=== PATIENT | female | born 1935 | race Caucasian/White ===

== ENCOUNTER → 2016-08-09 | Outpatient (REF) | payer MEDICARE ==
[~2016-08-09] MED LIST: ASPI32ECTA PO; D 50CAP PO; DEXI60CA PO; FOLI800T PO; LEVO50TA5 PO; PRED10PA PO; PRED10TA PO; SUCR1TA PO; VITA100072 PO; astelin
== END ==
LOC: M LAB REF 16:46
PROVIDERS: ATTEND Internal Medicine
DX: M35.3 Polymyalgia rheumatica (principal)

== ENCOUNTER 2016-12-20 12:31 | Emergency (ER) | payer MEDICARE ==
[~2016-12-20] VITALS: Ht 162.6 cm; Wt 81.8 kg
[~2016-12-20 12:31] MED LIST changes: +ASPI325T24 PO; -ASPI32ECTA PO; -DEXI60CA PO; +DEXI60CA2 PO
[2016-12-20] MEDS ORDERED: CITA20TA4 PO (12:42)
[2016-12-20] MEDS ORDERED: METF500T13 PO (12:42)
[2016-12-20] MEDS ORDERED: ASPI81TA85 PO (12:42)
[2016-12-20] MEDS ORDERED: PROT1TAB2 PO (12:42)
[2016-12-20] MEDS ORDERED: GABA-283 PO (12:42)
[2016-12-20] MEDS ORDERED: ADACEL/BOOSTRIX VACCINE (DIPHTH/PERTUSS/ACELL/TETANUS)0.5ML SYR (90715) IM ONE (13:30)
--- NOTE | 2016-12-20 14:16 | REP ---
CT Head without contrast HISTORY: Trauma COMPARISON: 05/21/2016 Areas of decreased attenuation are present in the periventricular and subcortical white matter. This represents small-vessel ischemic disease. There is no intraparenchymal hemorrhage, acute infarct, mass or midline shift. The ventricular system and cortical sulci are dilated consistent with mild volume loss. There is no extra cerebral collection. There is no fracture. The visualized sinuses are clear. IMPRESSION: 1. Small vessel ischemic disease. 2. Mild volume loss. Signed by Drew Faith MD 12/20/2016 02:08 P
--- NOTE | 2016-12-20 14:27 | REP ---
CT CERVICAL SPINE WITHOUT CONTRAST: HISTORY: Trauma. COMPARISON: 05/21/2016 There is no acute fracture. Disc bulges are present at the C2-3 through C5-6 levels. There is minimal narrowing of the spinal canal. Uncinate process and/or facet hypertrophy are present at the C2-3 through C6-7 levels. These findings produce minimal to mild narrowing of the neural foramina. The C4-5 and C5-6 intervertebral discs are decreased in height consistent with disc degeneration. IMPRESSION: 1. There is no acute fracture. 2. There is cervical spondylosis at the C2-3 through C6-7 levels. Signed by Drew Faith MD 12/20/2016 02:30 P
[2016-12-20 15:00] VITALS: BP 131/68
== END 2016-12-20 15:03 | disposition home or self-care (01) ==
LOC: EDBD 12:31 → EDSEX 12:31 → M ED 12:31
DX: S01.91XA Laceration without foreign body of unspecified part of head, initial encounter (principal); S09.90XA Unspecified injury of head, initial encounter; W19.XXXA Unspecified fall, initial encounter; Y92.099 Unspecified place in other non-institutional residence as the place of occurrence of the external cause; Y93.9 Activity, unspecified; Y99.9 Unspecified external cause status; E03.9 Hypothyroidism, unspecified; F41.9 Anxiety disorder, unspecified; K21.9 Gastro-esophageal reflux disease without esophagitis; M47.812 Spondylosis without myelopathy or radiculopathy, cervical region

== ENCOUNTER → 2017-01-02 | Outpatient (CLI) | payer MEDICARE ==
[~2017-01-02] MED LIST changes: +ASPI81TA85 PO; +CITA20TA4 PO; +GABA-283 PO; +METF500T13 PO; +PROT1TAB2 PO
--- NOTE | 2017-01-02 14:39 | REP ---
REASON FOR EXAM: Pain after fall. COMPARISON: None. There is partial syndesmophyte formation seen bilaterally at every level, but particularly at the L2-3 level. The pedicles are intact bilaterally. There is no evidence of spondylosis or spondylolisthesis. There is mild to moderate disc space narrowing at every level. Vertebral body height and alignment is within normal limits. Degenerative facet joint changes are suspected at every level bilaterally, but particularly L4-5 and L5-S1. IMPRESSION: Chronic changes. Signed by Tony Muhammad DO 01/03/2017 11:28 A
== END ==
LOC: M ADAMS 11:49
PROVIDERS: ATTEND Physician Assistant
DX: M54.5 Low back pain (principal)

== ENCOUNTER 2017-06-25 22:01 | Emergency (ER) | payer MEDICARE ==
[2017-06-26] MEDS: CYCLOBENZAPRINE 10 MG TAB PO
[2017-06-26] MEDS: MORPHINE 2 MG/ML 1ML SYRINGE IV
[2017-06-26] MEDS: NS 500 ML IV
[2017-06-26 00:31] LABS: BASO % 0.3 % (0.0-1.0); EOS # 0.1 10^3/uL (0.0-0.50); EOS % 0.7 % (0.0-3.0); HEMATOCRIT 37.1 % (36.0-47.0); HEMOGLOBIN 11.4 g/dl (12.0-16.0); IMMATURE GRANULOCYTE # 0.1 10^3/uL (0-0); IMMATURE GRANULOCYTE % 0.5 % (0-0); LYMPH # 2.5 10^3/uL (1.5-4.5); LYMPH % 19.4 % (24.0-44.0); MEAN CORPUSCULAR HEMOGLOBIN 28.8 pg (27.0-33.0); MEAN CORPUSCULAR HGB CONC 30.7 g/dl (32.0-36.5); MEAN CORPUSCULAR VOLUME 93.7 fl (80.0-96.0); MONO # 1.2 10^3/uL (0.0-0.8); MONO % 9.3 % (0.0-5.0); NEUTROPHILS % 69.8 % (36.0-66.0); PLATELET COUNT, AUTOMATED 296 10^3/uL (150-450); RED BLOOD COUNT 3.96 10^6/uL (4.00-5.40); RED CELL DISTRIBUTION WIDTH 13.9 % (11.5-14.5); WHITE BLOOD COUNT 12.9 10^3/uL (4.0-10.0)
[2017-06-26 00:50] LABS: ERYTHROCYTE SEDIMENTATION RATE 35 mm/hr (0-30)
[2017-06-26 00:53] LABS: CONTROL LINE MONO INT CTR LINE PRESENT; MONO SCRN NEGATIVE (NEGATIVE)
[2017-06-26 00:58] LABS: ANION GAP 7 MEQ/L (8-16); BLOOD UREA NITROGEN 19 MG/DL (7-18); CALCIUM LEVEL 9.1 MG/DL (8.8-10.2); CARBON DIOXIDE LEVEL 31 MEQ/L (21-32); CHLORIDE LEVEL 106 MEQ/L (98-107); CREATININE FOR GFR 0.77 MG/DL (0.55-1.02); GLOMERULAR FILTRATION RATE > 60.0 (>32); GLUCOSE, FASTING 107 MG/DL (83-110); POTASSIUM SERUM 4.4 MEQ/L (3.5-5.1); SODIUM LEVEL 144 MEQ/L (136-145)
[2017-06-26 01:00] LABS: LACTIC ACID SEPSIS PROTOCOL 1.6 MMOL/L (0.4-2.0)
[2017-06-26] MEDS: KETOROLAC 30 MG/ML VIAL (J1885) IV (01:15)
[2017-06-26] MEDS: AUGMENTIN 875 MG TAB PO (04:00)
== END 2017-06-26 04:16 | disposition home or self-care (01) ==
LOC: M ED 22:01
DX: I88.9 Nonspecific lymphadenitis, unspecified (principal); E03.9 Hypothyroidism, unspecified; F41.9 Anxiety disorder, unspecified; L21.9 Seborrheic dermatitis, unspecified; E11.40 Type 2 diabetes mellitus with diabetic neuropathy, unspecified; Z79.899 Other long term (current) drug therapy; Z79.82 Long term (current) use of aspirin; Z79.84 Long term (current) use of oral hypoglycemic drugs
CPT/HCPCS: J1885

== ENCOUNTER → 2017-07-05 | Outpatient (CLI) | payer MEDICARE | LOC: M RAD 13:19 | DX: J32.0 Chronic maxillary sinusitis (principal) | CPT/HCPCS: 70486 ==

== ENCOUNTER → 2017-08-30 | Outpatient (CLI) | payer MEDICARE | LOC: M ADAMS 13:20 | DX: M54.6 Pain in thoracic spine (principal) | CPT/HCPCS: 72072 ==

== ENCOUNTER → 2017-12-17 | Outpatient (REF) | payer MEDICARE | LOC: M LAB REF 09:37 | DX: N39.0 Urinary tract infection, site not specified (principal) | CPT/HCPCS: 87186 ==

== ENCOUNTER → 2018-04-17 | Outpatient (REF) | payer MEDICARE ==
[2018-04-17 18:35] LABS: C REACTIVE PROTEIN QUANTITATIV < 0.30 MG/DL (0.00-0.30)
== END ==
LOC: M LAB REF 17:17
DX: M35.3 Polymyalgia rheumatica (principal)
CPT/HCPCS: 86140

== ENCOUNTER → 2018-06-14 | Outpatient (CLI) | payer MEDICARE ==
[~2018-06-14] MED LIST changes: -ASPI325T24 PO; +ASPI325T25 PO; +AUGM500T34 PO; -GABA-283 PO; +GABA-845 PO
[2018-06-14 19:54] LABS: BASO # 0.1 10^3/uL (0.0-0.2); BASO % 0.4 % (0.0-1.0); EOS % 0.2 % (0.0-3.0); HEMATOCRIT 39.1 % (36.0-47.0); HEMOGLOBIN 11.6 g/dl (12.0-15.5); LYMPH # 2.3 10^3/uL (1.5-4.5); LYMPH % 20.2 % (24.0-44.0); MEAN CORPUSCULAR HEMOGLOBIN 27.2 pg (27.0-33.0); MEAN CORPUSCULAR HGB CONC 29.7 g/dl (32.0-36.5); MEAN CORPUSCULAR VOLUME 91.6 fl (80.0-96.0); MONO # 0.9 10^3/uL (0.0-0.8); NEUTROPHILS # 8.2 10^3/uL (1.8-7.7); NEUTROPHILS % 70.9 % (36.0-66.0); PLATELET COUNT, AUTOMATED 354 10^3/uL (150-450); RED BLOOD COUNT 4.27 10^6/uL (4.00-5.40); WHITE BLOOD COUNT 11.6 10^3/uL (4.0-10.0)
[2018-06-14 20:09] LABS: ALBUMIN 3.3 GM/DL (3.2-5.2); ALT/SGPT 23 U/L (12-78); BILIRUBIN,TOTAL 0.4 MG/DL (0.2-1.0); BLOOD UREA NITROGEN 13 MG/DL (7-18); CALCIUM LEVEL 9.5 MG/DL (8.8-10.2); CARBON DIOXIDE LEVEL 30 MEQ/L (21-32); CHLORIDE LEVEL 105 MEQ/L (98-107); CREATININE FOR GFR 0.94 MG/DL (0.55-1.30); GLOMERULAR FILTRATION RATE > 60.0 (>32); GLUCOSE, FASTING 105 MG/DL (70-100); POTASSIUM SERUM 5.3 MEQ/L (3.5-5.1); SODIUM LEVEL 142 MEQ/L (136-145); TOTAL PROTEIN 6.4 GM/DL (6.4-8.2)
== END ==
LOC: M LABDRWAD 18:26
PROVIDERS: ATTEND Physician Assistant
DX: D50.9 Iron deficiency anemia, unspecified (principal); E80.6 Other disorders of bilirubin metabolism; E55.9 Vitamin D deficiency, unspecified; H81.399 Other peripheral vertigo, unspecified ear

== ENCOUNTER → 2018-10-24 | Outpatient (REF) | payer MEDICARE ==
[~2018-10-24] MED LIST changes: +ASPI-255 PO; -ASPI325T25 PO; -CITA20TA4 PO; +CITA20TA6 PO; +PRED-351 PO; -PRED10TA PO; +VITA100018 PO; -VITA100072 PO
== END ==
LOC: M LAB REF 12:03
PROVIDERS: ATTEND Physician Assistant Medical
DX: N39.0 Urinary tract infection, site not specified (principal)

== ENCOUNTER → 2018-12-13 | Outpatient (REF) | payer MEDICARE | LOC: M LAB REF 16:54 | PROVIDERS: ATTEND Internal Medicine | DX: R31.9 Hematuria, unspecified (principal) ==

== ENCOUNTER 2019-11-12 14:36 | Inpatient (IN) | payer MEDICARE ==
[~2019-11-12] VITALS: Ht 162.6 cm; Wt 81.8 kg
[2019-11-12] MEDS ORDERED: LOSA25TA14 (15:02)
[2019-11-12] MEDS ORDERED: NAPR-837 PO (15:02)
[2019-11-12] MEDS ORDERED: ONDANSETRON 4MG/2ML VIAL IV ONE (15:30)
[2019-11-12] MEDS ORDERED: MORPHINE 4 MG/ML 1ML VIAL/SYRINGE (J2270) IV ONE (15:30)
[2019-11-12] MEDS: NS 1,000 ML IV SCH ×2 (15:47→23:51)
[2019-11-12 16:04] LABS: BASO % 0.2 % (0.0-1.0); HEMATOCRIT 36.4 % (36.0-47.0); HEMOGLOBIN 10.6 g/dl (12.0-15.5); LYMPH # 0.9 10^3/uL (1.5-5.0); MEAN CORPUSCULAR HEMOGLOBIN 25.5 pg (27.0-33.0); MEAN CORPUSCULAR HGB CONC 29.1 g/dl (32.0-36.5); MEAN CORPUSCULAR VOLUME 87.7 fl (80.0-96.0); MONO # 0.8 10^3/uL (0.0-0.8); MONO % 4.6 % (0.0-5.0); NEUTROPHILS # 15.5 10^3/uL (1.5-8.5); NEUTROPHILS % 89.2 % (36.0-66.0); PLATELET COUNT, AUTOMATED 267 10^3/uL (150-450); RED BLOOD COUNT 4.15 10^6/uL (4.00-5.40); WHITE BLOOD COUNT 17.4 10^3/uL (4.0-10.0)
[2019-11-12 16:18] LABS: INR 1.07; PROTHROMBIN TIME 13.6 SECONDS (11.8-14.0)
--- NOTE | 2019-11-12 16:26 | REP ---
PELVIS AND RIGHT HIP: AP view of the pelvis and AP and cross-table lateral views of the right hip are performed. There is a fracture of the right femoral neck with foreshortening and varus angulation. No dislocation. No other acute fracture or dislocation is seen. There are mild degenerative changes of the hip joints and lower lumbar spine. IMPRESSION: Right femoral neck fracture. Electronically Signed by Arnold Roldan MD 11/14/2019 12:53 A
--- NOTE | 2019-11-12 16:27 | REP ---
CHEST, SINGLE VIEW: Single view of the chest is performed. There is no acute infiltrate with mild bibasilar fibroatelectatic change. There is cardiomegaly. There is a large hiatal hernia. IMPRESSION: No acute infiltrate. Electronically Signed by Arnold Roldan MD 11/14/2019 12:54 A
--- NOTE | 2019-11-12 16:28 | REP ---
RIGHT FEMUR: AP and lateral views of the right femur performed. There is a right femoral neck fracture with foreshortening and varus deformity. The remaining femur is intact with no other evidence of acute fracture or dislocation. IMPRESSION: Right femoral neck fracture. Electronically Signed by Arnold Roldan MD 11/14/2019 12:54 A
[2019-11-12 16:31] LABS: BLOOD UREA NITROGEN 16 MG/DL (7-18); CALCIUM LEVEL 9.2 MG/DL (8.8-10.2); CARBON DIOXIDE LEVEL 27 MEQ/L (21-32); CHLORIDE LEVEL 105 MEQ/L (98-107); CK-MB VALUE MASS 1.5 NG/ML (<3.6); CPK CREATINE PHOSPHOKINASE 103 U/L (26-192); CREATININE FOR GFR 0.93 MG/DL (0.55-1.30); GLOMERULAR FILTRATION RATE > 60.0 (>32); GLUCOSE, FASTING 115 MG/DL (70-100); MB/CK RELATIVE INDEX 1.46 (< OR =4); POTASSIUM SERUM 4.4 MEQ/L (3.5-5.1); SODIUM LEVEL 139 MEQ/L (136-145)
[2019-11-12 16:44] LABS: NT-PRO BNP 442 PG/ML (<450)
[2019-11-12] MEDS ORDERED: DEXTROSE 50% 50 ML SYRINGE IV PRN (17:00)
[2019-11-12] MEDS ORDERED: GLUCAGON INJ 1MG VIAL SC PRN (17:00)
[2019-11-12] MEDS ORDERED: GLUCOSE 4GM CHEW TABLET PO PRN (17:00)
[2019-11-12] MEDS ORDERED: MORPHINE 2 MG/ML 1ML VIAL (J2270) IV PRN (17:00)
--- NOTE | 2019-11-12 17:10 | IPNPDOC ---
Text Note Date of Service The patient was seen on 11/12/19. NOTE TIME OF SERVICE 505 PM is an 84 yr old w a PMH of NIDDM, Hypothyroidism, Severe Sleep apnea, Obesity and OA who tripped and fell resulting in a right hip fx. PE: appears to be in pain / ROM at right leg limited by pain 1 R hip fx -admit to med/surg / NPO after midnight w IVF for surgery by / morphine for pain 2 Perioperative eval RCRI Score = 0 but bc she is 84 yrs of age, we will f/u BNP if it is wnl she will not need additional testing prior to proceeding with surgery / hold ASA / per CCS guidelines hold ARBs 24H prior to surgery to reduce perioperative risk of hypotension & resume on day #2 after surgery / she is chronically on prednisone but her dose is less than 10mg therefore there is no need for stress dose steroids 3 Osteoporosis -possibly steroid induced -will need to f/u w PCP for DEXA and to select antiresorptive therapy 4 Sleep apnea -bipap 05/12 based on sleep study done in 2010 5 Obesity w BMI of 31 complicates care rest per 's H&P VS,Fishbone, I+O VS, Fishbone, I+O Laboratory Tests 11/12/19 15:46 Vital Signs Date Time Temp Pulse Resp B/P (MAP) Pulse Ox O2 Delivery O2 Flow Rate FiO2 11/12/19 15:49 19 100 Room Air 11/12/19 14:59 180/80 (113) 11/12/19 14:50 97.5 94 KAMILLA HALL MD Nov 12, 2019 17:10
--- NOTE | 2019-11-12 17:16 | HPEPDOC ---
[facility] Medical History & Physical Date of Admission Nov 12, 2019 Date of Service: Nov 12, 2019 Primary Care Physician: ZAINA ZEPEDA DO Attending Physician: KAMILLA HALL MD History and Physical CHIEF COMPLAINT: Right hip pain HISTORY OF PRESENT ILLNESS: Patient is an 84 year old female with a past medical history significant for hypertension, diabetes mellitus type 2, and GERD who presented to the [facility] ER with complaint of right hip pain after a fall. Patient stated she was bringing her groceries into the house and was in her living room when she tripped and fell landing on her right side. She stated that she was unable to get up at the time and called her children who live close by. She states that it was about an hour before she was able to get help. She denied any loss of consciousness when she fell. She states that she has fallen before however has not fallen at all in the past year. On presentation to the ER the patient was found to be in hypertensive urgency l ikely secondary to her pain but otherwise vitally stable. She received a hip/pelvis x-ray in the ER which demonstrated a right femoral neck fracture. Hospitalist service was consulted and the patient was admitted for further evaluation and management PAST MEDICAL HISTORY: 1. Hypertension 2. Diabetes Mellitus Type 2 3. Hypothyroidism 4. GERD PAST SURGICAL HISTORY: 1. Cholecystectomy 2. Bilateral Cataract surgery 3. Bilateral Tubal Ligations SOCIAL HISTORY: Patient lives at home alone. She is independent with her ADLs. She is a never smoker. She does not drink alcohol. She denies any history of IV or illicit drug use FAMILY HISTORY: Positive for "heart problems in father and stroke in her mother. She has 4 children all of whom are alive and well ALLERGIES: Please see below. REVIEW OF SYSTEMS: CONSTITUTIONAL: Denies fevers, chills, nightsweats. Denies unintentional weight loss HEENT: Denies cough. Denies dysphagia CARDIOVASCULAR: Denies chest pain. Denies palpitations. Denies feelings of the heart racing RESPIRATORY: Denies shortness of breath. Denies cough. Denies wheeze GASTROINTESTINAL: Denies abdominal pain. Denies diarrhea, constipation. Denies nausea or vomiting GENITOURINARY: Denies dysuria. Denies increased frequency. SKIN: Denies any rashes or lesions MUSCULOSKELETAL: Admits to right sided hip pain and difficulty and weakness in right leg. NEUROLOGICAL: Denies changes in speech. Denies muscle weakness PSYCHIATRIC: Denies depression or anxiety ENDOCRINE: Denies heat intolerance or cold intolerance HEMATOLOGIC/LYMPHATIC: Denies easy bruising or bleeding. Denies history of DVT or PE HOME MEDICATIONS: Please see below. PHYSICAL EXAMINATION: VITAL SIGNS: Temperature 97.5, pulse 94, respiratory rate 18, blood pressure 180/80, pulse oximetry 100% on room air. GENERAL APPEARANCE: Awake, alert, and oriented. Does not appear in any acute distress. Lying in stretcher. Appears slightly uncomfortable HEENT: Atraumatic, normocephalic. eyes are nonicteric. Trachea is midline/ CARDIOVASCULAR: Normal S1. S2. Regular rate and rhythm. 2/6 systolic ejection murmur. No clicks or rubs LUNGS: Clear vesicular breath sounds bilaterally. Good respiratory effort. No wheezes, rhonchi or rales ABDOMEN: Soft, nondistended. nontender. Normoactive bowel sounds throughout. EXTREMITIES: External rotation of the right lower extremity. Tenderness over the right hip. No edema. Full and equal pulses in bilateral upper and lower extremities NEUROLOGICAL: No focal neurological deficits PSYCHIATRIC: Mood and affect appear appropriate LABORATORY DATA: See below. IMAGING: PELVIS AND RIGHT HIP: AP view of the pelvis and AP and cross-table lateral views of the right hip are performed. There is a fracture of the right femoral neck with foreshortening and varus angulation. No dislocation. No other acute fracture or dislocation is seen. There are mild degenerative changes of the hip joints and lower lumbar spine. IMPRESSION: Right femoral neck fracture. RIGHT FEMUR: AP and lateral views of the right femur performed. There is a right femoral neck fracture with foreshortening and varus deformity. The remaining femur is intact with no other evidence of acute fracture or dislocation. IMPRESSION: Right femoral neck fracture. Unreviewed DD: Arnold Roldan MD, MD 11/12/19 1539 DT: KATHY 11/12/19 1628 CHEST, SINGLE VIEW: Single view of the chest is performed. There is no acute infiltrate with mild bibasilar fibroatelectatic change. There is cardiomegaly. There is a large hiatal hernia. IMPRESSION: No acute infiltrate. Unreviewed DD: Arnold Roldan MD, MD 11/12/19 1540 DT: MARK 11/12/19 1626 DS: MICROBIOLOGY: Please see below. ASSESSMENT: Patient is an 84 year old female who presented to the [facility] ER with right hip pain after a mechanical fall at home resulting in a right femoral neck fracture. Patient is admitted for surgery tomorrow . PLAN: 1. Right Femoral neck fracture 2/2 mechanical fall -Patient sustained right femoral neck fracture from a fall at home. Fall was mechanical, -Patient to go to OR tomorrow. -NPO after midnight -Morphine for pain management -Perioperative evaluation with EKG demonstrating LVH likely secondary to hypertensive heart disease. -Will hold metformin, Naproxen, aspirin, Losartan -Perioperative Mortality Prediction Score of 12 points indicating ~2.4% risk of perioperative mortality -Revised Cardiac Risk Index Class I Risk. 3.9% 30 day risk of , NV, or cardiac arrest -History of DIAN. DIAN protocol after surgery -Patient has 6-8 metabolic equivalents. High functional status prior to right femur fracture 2. Leukocytosis -Likely reactive to patients fall and acute fracture. Afebrile. 3. Severe Asymptomatic Hypertension -Presenting BP of 213/96. Likely secondary to pain. Patients BP has come down with pain management 4. DIAN -Patient uses CPAP at home. DIAN protocol post-op 5. DMII -hold metformin -ACHS coverage with sliding scale -q6h coverage when NPO after midnight 6. Hypothyroidism -Continue Synthroid 7. GERD -Continue home medications 8. DVT Prophylaxis -TEDS and Sequentials -Pharmacologic prophylaxis after surgery Vital Signs Vital Signs Date Time Temp Pulse Resp B/P (MAP) Pulse Ox O2 Delivery O2 Flow Rate FiO2 11/12/19 15:49 19 100 Room Air 11/12/19 14:59 180/80 (113) 11/12/19 14:50 97.5 94 Laboratory Data Labs 24H Laboratory Tests 2 11/12/19 15:46: Immature Granulocyte % (Auto) 1.0, Neutrophils (%) (Auto) 89.2H, Lymphocytes (%) (Auto) 5.0L, Monocytes (%) (Auto) 4.6, Eosinophils (%) (Auto) 0.0, Basophils (%) (Auto) 0.2, Neutrophils # (Auto) 15.5H, Lymphocytes # (Auto) 0.9L, Monocytes # (Auto) 0.8, Eosinophils # (Auto) 0.0, Basophils # (Auto) 0.0, Nucleated Red Blood Cells % (auto) 0.0, Prothrombin Time 13.6, Prothromb Time International Ratio 1.07, Anion Gap 7L, Glomerular Filtration Rate > 60.0, Calcium Level 9.2, Total Creatine Kinase 103, Creatine Kinase MB 1.5, Creatine Kinase MB Relative Index 1.46, RI-Doi-U-Type Natriuretic Peptide 442 CBC/BMP Laboratory Tests 11/12/19 15:46 Home Medications Scheduled Aspirin (Aspirin EC) 81 Mg Tablet.dr, 81 MG PO DAILY Cetirizine HCl (Cetirizine HCl) 10 Mg Tablet, 10 MG PO DAILY Cholecalciferol (Vitamin D3) (Vitamin D3) 1,000 Unit Tablet, 1,000 UNITS PO DAILY Cyanocobalamin (Vitamin B-12) (Vitamin B-12) 1,000 Mcg Tablet, 1,000 MCG PO DAILY Folic Acid (Folic Acid) 0.8 Mg Capsule, 800 MCG PO QPM Gabapentin (Gabapentin) 100 Mg Capsule, 200 MG PO QHS Levothyroxine Sodium (Levoxyl) 50 Mcg Tablet, 50 MCG PO DAILY Losartan Potassium (Losartan Potassium) 50 Mg Tablet, 50 MG PO DAILY Metformin HCl (Metformin HCl) 500 Mg Tablet, 500 MG PO DAILY Pantoprazole Sodium (Pantoprazole Sodium) 40 Mg Tablet.dr, 40 MG PO DAILY Prednisone (Prednisone) 2.5 Mg Tablet, 2.5 MG PO DAILY 7.5MG TOTAL DAILY Prednisone (Prednisone) 5 Mg Tablet, 5 MG PO DAILY 7.5MG TOTAL DAILY Scheduled PRN Montelukast Sodium (Montelukast Sodium) 10 Mg Tablet, 10 MG PO QHS PRN for ALLERGIES Naproxen (Naproxen) 500 Mg Tablet, 500 MG PO BID PRN for PAIN Allergies Coded Allergies: No Known Allergies (Unverified , 12/20/16) A-FIB/CHADSVASC A-FIB History Current/History of A-Fib/PAF?: No GME ATTESTATION GME ATTESTATION My faculty preceptor for this patient encounter was physically present during the encounter and was fully available. All aspects of the patient interview, examination, medical decision making process, and medical care plan development were reviewed and approved by the faculty preceptor. The faculty preceptor is aware and concurs with the plan as stated in the body of this note and will attest to such by his/her cosignature. ATTENDING NOTE I reviewed the note, please see my addendum from 11/12/2019 LESA MÉNDEZ DO Nov 12, 2019 17:16 KAMILLA HALL MD Nov 12, 2019 20:06
[2019-11-12] MEDS ORDERED: LOSA50TA88 PO (17:30)
[2019-11-12] MEDS: HumaLOG INSULIN (NovoLOG) PER UNIT SC SCH ×2 (17:30→21:00)
[2019-11-12] MEDS ORDERED: ASPI-161 PO (17:30)
[2019-11-12] MEDS ORDERED: VITAD1000T PO (17:30)
[2019-11-12] MEDS ORDERED: CYAN100050 PO (17:30)
[2019-11-12] MEDS ORDERED: GABA-1171 PO (17:30)
[2019-11-12] MEDS ORDERED: LEVO50TA45 PO (17:30)
[2019-11-12] MEDS ORDERED: FOLI800C PO (17:30)
[2019-11-12] MEDS ORDERED: NAPR-885 PO (17:31)
[2019-11-12] MEDS ORDERED: PRED25TA PO (17:31)
[2019-11-12] MEDS ORDERED: PANT-23 PO (17:31)
[2019-11-12] MEDS ORDERED: MONT10TA4 PO (17:31)
[2019-11-12] MEDS ORDERED: METF-839 PO (17:31)
[2019-11-12] MEDS ORDERED: ALL10TAB29 PO (17:31)
[2019-11-12] MEDS ORDERED: PRED5TA PO (17:31)
[2019-11-12] MEDS: ONDANSETRON 4MG/2ML VIAL IV PRN (17:37)
[2019-11-12 18:37] VITALS: BP 132/84
[2019-11-12] MEDS ORDERED: METOCLOPRAMIDE INJ 10MG/2ML VIAL (J2765 PER 1) IV PRN (19:30)
[2019-11-12] MEDS ORDERED: MONTELUKAST 10 MG TAB PO PRN (20:15)
--- NOTE | 2019-11-12 20:19 | ECGEPIP ---
[facility] - ED Test Date: 2019-11-12 Pat Name: AMOL GERBER Department: Room: - Gender: Female Occup Therapist: : [id number] Requested By: SANDRA CHANDRA Order Number: [id number] Reading MD: Hazel Oliveros Measurements Intervals [place] Rate: 94 P: 67 MN: 154 QRS: -3 QRSD: 74 T: 140 QT: 352 QTc: 442 Interpretive Statements SINUS RHYTHM LEFT VENTRICULAR HYPERTROPHY AND ST-T CHANGE INCREASED RATE 07/12/15 Electronically Signed on 11-12-2019 20:19:13 EDT by Hazel Oliveros
[2019-11-12 20:39] LABS: HEMOGLOBIN A1c 6.3 %
[2019-11-12] MEDS ORDERED: traMADol 50 MG TAB PO PRN (21:30)
[2019-11-12] MEDS: GABAPENTIN 100 MG CAP PO SCH (21:37)
[2019-11-12] MEDS: ACETAMINOPHEN 500 MG TAB PO SCH (21:38)
[2019-11-12] MEDS: traMADol 50 MG TAB PO PRN (21:38)
[2019-11-12 22:00] VITALS: BP 138/79
[2019-11-13] MEDS: LEVOTHYROXINE 50MCG TABLET (0.05MG) PO SCH (05:55)
[2019-11-13] MEDS: traMADol 50 MG TAB PO PRN (05:56)
[2019-11-13] MEDS: ACETAMINOPHEN 500 MG TAB PO SCH ×3 (05:56→22:12)
[2019-11-13 06:00] VITALS: BP 138/77
[2019-11-13] MEDS ORDERED: ceFAZolin SOD 2 GM in IV 1 EA IV ONE (06:00)
[2019-11-13] MEDS: HumaLOG INSULIN (NovoLOG) PER UNIT SC SCH ×4 (07:25→21:00)
--- NOTE | 2019-11-13 07:26 | IPNPDOC ---
Text Note Date of Service The patient was seen on 11/13/19. NOTE Pt is medically stable and clear for surgery Risk stratification: ASA class 2-3 VS,Fishbone, I+O VS, Fishbone, I+O Laboratory Tests 11/12/19 15:46 Vital Signs Date Time Temp Pulse Resp B/P (MAP) Pulse Ox O2 Delivery O2 Flow Rate FiO2 11/13/19 06:26 16 11/13/19 06:00 98.4 83 138/77 (97) 96 Nasal Cannula 2.0 I&O- Last 24 Hours up to 6 AM 11/13/19 05:59 Intake Total 720 ml Output Total 350 ml Balance 370 ml RITIKA LEBRON MD Nov 13, 2019 07:26
[2019-11-13] MEDS: predniSONE 5 MG TAB PO SCH (08:45)
[2019-11-13] MEDS: predniSONE 2.5 MG TAB PO SCH (08:45)
[2019-11-13] MEDS: VITAMIN D 1,000 INTERNATIONAL UNITS TABLET PO SCH (08:45)
[2019-11-13] MEDS: PANTOPRAZOLE 40MG TAB (PROTONIX) PO SCH (08:45)
--- NOTE | 2019-11-13 11:03 | IPNPDOC ---
Subjective Date Seen The patient was seen on 11/13/19. Subjective Chief Complaint/HPI Patient complaining of a pain in her right hip is scheduled for surgery today General: Denies: ROS Unobtainable, Chills, Night Sweats, Fatigue, Malaise, Normal Appetite, Other Symptoms Constitutional: Denies: Chills, Fever, Malaise, Night Sweats, Weakness, Fatigue, Weight Loss, Lethargy, Other Pulmonary: Denies: Dyspnea, Cough, Pleuritic Chest Pain, Other Symptoms Cardiovascular: Denies: Chest Pain, Palpitations, Orthopnea, Paroxysmal Noc. Dyspnea, Edema, Lt Headedness, Other Symptoms Gastrointestinal: Denies: Nausea, Vomiting, Abdominal Pain, Diarrhea, Constipation, Melena, Hematochezia, Other Symptoms Hematologic: Denies: Bruising, Bleeding Excessively, Petecchia, Purpura, Enlarged Lymph Nodes, Other Hematologic Endocrine: Denies: Polydipsia, Polyphagia, Polyuria, Heat Intolerance, Cold Intolerance, Other Endocrine Sx Musculoskeletal: Reports: Other Symptoms (pain in the right hip) Neurological: Denies: Weakness, Numbness, Incoordination, Change in speech, Confusion, Seizures, Other Symptoms Psych: Denies: Mood Normal, Anxiety, Depression, Memory Issues, Thoughts of Self Harm, Anger, Thoughts of Harming Other, Other Psych Objective Physical Examination General Exam: Positive: Alert, Cooperative Eye Exam: Positive: PERRLA, Conjunctiva & lids normal ENT Exam: Positive: Atraumatic Neck Exam: Positive: Supple Chest Exam: Positive: Clear to auscultation, Normal air movement Heart Exam: Positive: Rate Normal, Normal S1 Abdomen Exam: Positive: Normal bowel sounds, Soft Extremity Exam: Positive: Other (. Positive tenderness at right hip on palpation) Assessment /Plan Problems (1) Hip fracture Status: Acute Problem Text: is an 84 yr old w a PMH of NIDDM, Hypothyroidism, Severe Sleep apnea, Obesity and OA who tripped and fell resulting in a right hip fx. Right hip fracture Admitted to [facility] floor . She has been kept nothing by mouth since last night Scheduled for surgery. Dr. Rockwell today Continue pain management with morphine Further, as per orthopedics recommendations (2) Osteoporosis Status: Chronic Problem Text: Possibly steroid induced Further f/u w PCP for DEXA and to select antiresorptive therapy (3) DIAN (obstructive sleep apnea) Status: Chronic Problem Text: bipap 05/12 based on sleep study done in 2011 Plan/VTE VTE Prophylaxis Ordered?: Yes VS, I&O, 24H, Fishbone Vital Signs/I&O Vital Signs Date Time Temp Pulse Resp B/P (MAP) Pulse Ox O2 Delivery O2 Flow Rate FiO2 11/13/19 07:30 2.0 11/13/19 06:26 16 11/13/19 06:00 98.4 83 138/77 (97) 96 Nasal Cannula I&O- Last 24 Hours up to 6 AM 11/13/19 06:00 Intake Total 720 ml Output Total 600 ml Balance 120 ml Laboratory Data 24H LABS Laboratory Tests 2 11/12/19 15:46: Immature Granulocyte % (Auto) 1.0, Neutrophils (%) (Auto) 89.2H, Lymphocytes (%) (Auto) 5.0L, Monocytes (%) (Auto) 4.6, Eosinophils (%) (Auto) 0.0, Basophils (%) (Auto) 0.2, Neutrophils # (Auto) 15.5H, Lymphocytes # (Auto) 0.9L, Monocytes # (Auto) 0.8, Eosinophils # (Auto) 0.0, Basophils # (Auto) 0.0, Nucleated Red Blood Cells % (auto) 0.0, Prothrombin Time 13.6, Prothromb Time International Ra flavio 1.07, Anion Gap 7L, Glomerular Filtration Rate > 60.0, Calcium Level 9.2, Total Creatine Kinase 103, Creatine Kinase MB 1.5, Creatine Kinase MB Relative Index 1.46, PE-Tad-F-Type Natriuretic Peptide 442 11/12/19 15:47: Estimated Mean Plasma Glucose 134H, Hemoglobin A1c 6.3 11/12/19 17:46: Bedside Glucose (Misc Panel) 115H 11/12/19 19:56: Bedside Glucose (Misc Panel) 116H 11/13/19 05:07: Bedside Glucose (Misc Panel) 111H CBC/BMP Laboratory Tests 11/12/19 15:46 Microbiology Microbiology 11/12/19 Respiratory Virus Panel (PCR) (JODY) - Final, Complete RITIKA LEBRON MD Nov 13, 2019 11:03
[2019-11-13] MEDS: NS 1,000 ML IV SCH (11:18)
[2019-11-13 14:00] VITALS: BP 159/70
[2019-11-13] MEDS ORDERED: MIDAZOLAM INJ 2MG/2ML VIAL (J2250 PER 1MG) As Ordered ONE (16:34)
[2019-11-13] MEDS ORDERED: KETAMINE HCL 200 MG/20 ML VIAL As Ordered ONE (16:34)
[2019-11-13] MEDS ORDERED: propofoL 200 MG/20 ML VIAL As Ordered ONE (16:34)
[2019-11-13] MEDS ORDERED: LIDOCAINE 2% 100MG/5ML SDV (FOR ANES.) As Ordered ONE (16:34)
[2019-11-13] MEDS ORDERED: fentaNYL 100 MCG/2 ML INJECTION (J3010) As Ordered ONE ×2 (16:34→19:20)
[2019-11-13] MEDS ORDERED: ONDANSETRON 4MG/2ML VIAL As Ordered ONE ×2 (16:34→19:21)
[2019-11-13] MEDS ORDERED: BUPIVACAINE/DEXTROSE 0.75% 2 ML AMP As Ordered ONE (16:42)
[2019-11-13] MEDS ORDERED: EPINEPHrine INJ 1 MG/ML 1ML AMP As Ordered ONE (17:27)
[2019-11-13] MEDS ORDERED: ceFAZolin 2 GM/D5W 50 ML IV BAG (J0690 PER 500MG) As Ordered ONE (17:36)
[2019-11-13] MEDS: ONDANSETRON 4MG/2ML VIAL IV PRN (19:58)
[2019-11-13] MEDS ORDERED: LR 1,000 ML IV SCH (20:00)
[2019-11-13] MEDS ORDERED: oxyCODONE 5MG TAB PO PRN (20:00)
[2019-11-13] MEDS ORDERED: ONDANSETRON 4MG/2ML VIAL IV PRN (20:00)
--- NOTE | 2019-11-13 20:02 | REP ---
Two views right hip: 11/13/2019. Indication: Postoperative assessment. Comparison: Yesterday. Findings: The patient is status post total right hip arthroplasty with the hardware intact and no acute fracture. Expected postoperative soft tissue sequelae are noted. Impression: Expected postoperative findings by plain film evaluation following total right hip arthroplasty. Electronically Signed by Hao Wasserman DO 11/13/2019 07:54 P
[2019-11-13] MEDS: fentaNYL 100 MCG/2 ML INJECTION (J3010) IV PRN ×4 (20:18→21:41)
[2019-11-13] MEDS ORDERED: oxyCODONE 5MG TAB As Ordered ONE (20:28)
[2019-11-13] MEDS ORDERED: METOCLOPRAMIDE INJ 10MG/2ML VIAL (J2765 PER 1) As Ordered ONE (20:52)
[2019-11-13] MEDS ORDERED: METOCLOPRAMIDE INJ 10MG/2ML VIAL (J2765 PER 1) IV PRN (21:00)
[2019-11-13] MEDS ORDERED: NS 1,000 ML IV SCH (21:00)
[2019-11-13 22:00] VITALS: BP 157/74
[2019-11-13] MEDS: GABAPENTIN 100 MG CAP PO SCH (22:13)
[2019-11-13 22:30] VITALS: BP 152/71
[2019-11-13 23:30] VITALS: BP 140/75
[2019-11-14] VITALS (8 sets, daily range): BP systolic 130–153; BP diastolic 58–72
[2019-11-14] MEDS: ceFAZolin SOD 1 GM in D5W MINI-BAG PLUS 50 ML IV SCH ×3 (01:40→17:30)
[2019-11-14] MEDS: ACETAMINOPHEN 500 MG TAB PO SCH ×3 (05:36→20:47)
[2019-11-14] MEDS: LEVOTHYROXINE 50MCG TABLET (0.05MG) PO SCH (05:36)
[2019-11-14 06:01] LABS: BASO % 0.2 % (0.0-1.0); EOS % 0.2 % (0.0-3.0); HEMATOCRIT 31.7 % (36.0-47.0); LYMPH # 1.3 10^3/uL (1.5-5.0); LYMPH % 10.4 % (24.0-44.0); MEAN CORPUSCULAR HEMOGLOBIN 25.4 pg (27.0-33.0); MEAN CORPUSCULAR HGB CONC 28.4 g/dl (32.0-36.5); MEAN CORPUSCULAR VOLUME 89.5 fl (80.0-96.0); MONO # 0.9 10^3/uL (0.0-0.8); MONO % 7.4 % (0.0-5.0); NEUTROPHILS # 9.9 10^3/uL (1.5-8.5); NEUTROPHILS % 81.3 % (36.0-66.0); PLATELET COUNT, AUTOMATED 229 10^3/uL (150-450); RED BLOOD COUNT 3.54 10^6/uL (4.00-5.40); WHITE BLOOD COUNT 12.2 10^3/uL (4.0-10.0)
[2019-11-14 06:30] LABS: ALBUMIN 2.3 GM/DL (3.2-5.2); ALT/SGPT 44 U/L (12-78); BILIRUBIN,TOTAL 1.5 MG/DL (0.2-1.0); BLOOD UREA NITROGEN 11 MG/DL (7-18); CALCIUM LEVEL 8.1 MG/DL (8.8-10.2); CARBON DIOXIDE LEVEL 26 MEQ/L (21-32); CHLORIDE LEVEL 109 MEQ/L (98-107); CREATININE FOR GFR 0.73 MG/DL (0.55-1.30); GLOMERULAR FILTRATION RATE > 60.0 (>32); GLUCOSE, FASTING 121 MG/DL (70-100); POTASSIUM SERUM 4.3 MEQ/L (3.5-5.1); SODIUM LEVEL 141 MEQ/L (136-145); TOTAL PROTEIN 5.1 GM/DL (6.4-8.2)
[2019-11-14] MEDS: HumaLOG INSULIN (NovoLOG) PER UNIT SC SCH ×4 (07:30→20:46)
[2019-11-14] MEDS: VITAMIN D 1,000 INTERNATIONAL UNITS TABLET PO SCH (08:57)
[2019-11-14] MEDS: PANTOPRAZOLE 40MG TAB (PROTONIX) PO SCH (08:57)
[2019-11-14] MEDS: predniSONE 5 MG TAB PO SCH (08:57)
[2019-11-14] MEDS: predniSONE 2.5 MG TAB PO SCH (08:57)
[2019-11-14] MEDS: MOM 30ML SUSPENSION UDC PO SCH (09:01)
[2019-11-14] MEDS: MIRALAX *UNIT DOSE* 17GM PACKET PO SCH (09:01)
--- NOTE | 2019-11-14 09:24 | CR ---
DATE OF CONSULTATION: 11/13/2019 CHIEF COMPLAINT: Right hip pain. HISTORY OF PRESENT ILLNESS: The patient presented on 11/12/2019 after having a slip and fall coming into her house. She immediately appreciated severe pain to her right hip, inability to ambulate. It was made worse with motion. It is sharp in nature with constant dull ache and is alleviated with bedrest, immobilizaton, pain medication. She denies any fevers, chills, nausea, or vomiting. Complete 10-system review with pertinent positives and negatives in history of present illness (HPI). All other systems negative. PAST MEDICAL HISTORY: Hypertension. Diabetes type 2. Hypothyroidism. Gastroesophageal reflux disease (GERD). PAST SURGICAL HISTORY: Cholecystectomy. Bilateral cataract surgery. Bilateral tubal ligation. ALLERGIES: No known drug allergies. MEDICATIONS: - aspirin - cetirizine - vitamin D3 - vitamin B12 - folic acid - gabapentin - levothyroxine - losartan - metformin - pantoprazole - prednisone SOCIAL HISTORY: The patient lives at home alone. Never a smoker. PHYSICAL EXAMINATION: The patient is awake, alert, oriented, well dressed. Appropriate affect. Breathing unlabored on room air. Normocephalic, atraumatic. BILATERAL UPPER EXTREMITIES: No tenderness to palpation. Full active range of motion of the shoulders, elbows, and wrists without any pain or discomfort. Skin is intact. Radial pulse 2+, regular rate. Positive anterior interosseous nerve (AIN), posterior interosseous nerve (PIN), and ulnar motor nerve function. LEFT LOWER EXTREMITY: Negative log roll. No tenderness to palpation. Skin intact. Posterior tibial pulse 2+, regular rate. Positive extensor hallucis longus (EHL), flexor hallucis longus (FHL), tibia, and gastroc motor function. Sensation intact to light touch superficial peroneal, deep peroneal, sural, saphenous, and tibial distributions. RIGHT LOWER EXTREMITY: Positive log roll. Tender to palpation about the hip. Skin is intact. Posterior tibial pulse 2+, regular rate. Positive EHL, FHL, tibia, and gastroc motor function. Sensation in superficial peroneal, deep peroneal, sural, saphenous, tibial distributions intact to light touch. IMAGING: Reviewed. Pelvis and AP of the right hip demonstrating right hip femoral neck fracture with displacement. I discussed with the patient at this point in time, unfortunately, this is a fracture that requires operative intervention in order to increase ambulation and help preserve her cardiovascular health. We discussed the risks and benefits of the hemiarthroplasty including, but not limited to, infection, damage to surrounding structures, incomplete relief, and the patient would like to proceed with operative intervention. The patient is currently on bedrest, has been admitted and cleared by the medical service, which we appreciate. I discussed the risks and benefits of surgery including, but not limited to, infection, damage to surrounding structures, incomplete relief, and postoperative issues in terms of pain, and patient will plan to proceed with surgery.
--- NOTE | 2019-11-14 10:26 | RO ---
DATE OF PROCEDURE: 11/13/2019 PREOPERATIVE DIAGNOSIS: Right femoral neck fracture. POSTOPERATIVE DIAGNOSIS: Right femoral neck fracture. PROCEDURE: Right hip hemiarthroplasty. SURGEON: Dr. Sachin Rockwell [employer] ARCHITECT: ANESTHESIA: INDICATIONS: 84-year-old female who slipped and fell at home and suffered a femoral neck fracture. We discussed the risks and benefits of surgical intervention including, but not limited to infection, damage to surrounding structures, incomplete relief, and dislocation. The patient wished to proceed. PROCEDURE DESCRIPTION: The patient was brought back to the operating room (OR) in supine position and underwent spinal anesthesia, at which point, the right hip was prepped and draped in the usual manner in the lateral position. We then had a time out confirming site, side, and surgery. Once all in agreement, made a longitudinal incision over the greater trochanter, sharply incised down to the iliotibial (IT) band, careful to control superficial bleeding. The IT band was split in line with its fibers. We then released the gluteus medius and tagged it with an #0 Vicryl along with the capsule in one sheet. At which point, we then cut the femoral neck fracture for our final neck cut and removed the bone fragments. We then attempted to use the corkscrew to remove the femoral head in one piece, unfortunately it shattered. We then had to remove it piecemeal. Once we thoroughly irrigated the joint and removed all bone debris we sized the femoral head. We were happy with the 47 fit. We then turned our attention to the femoral cut, sequentially reamed and broached up to a size 5 stem. After trialing a standard and -3 we were happy with the -3 fit. It was significantly difficult to reduce the standard stem. At which point, we irrigated the wound thoroughly and implanted our final implants. The size 6 [employer] [place] stem along with a 47 head and a -3 taper. We irrigated the wound once more and closed the gluteus medius repair with #0 Vicryl, IT band with #0 Vicryl and STRATAFIX, subcutaneous tissue with #2-0 Vicryl and skin with mahi. Dressing was placed. The patient was awakened and taken to the postanesthesia care unit (PACU) in stable condition. Postoperative x-rays confirmed reduced hip. POSTOPERATIVE PLAN: The patient will GET Surgical Care improvement project (SCIP) antibiotic prophylaxis and deep vein thrombosis (DVT) prophylaxis. He will be weight bearing as tolerated. Followup in the office in 2 weeks for a clinical recheck at that time.
--- NOTE | 2019-11-14 11:52 | IPNPDOC ---
Subjective Date Seen The patient was seen on 11/14/19. Subjective Chief Complaint/HPI Patient is comfortable offers no new complaints. Possibly will be discharged today with physical therapy General: Denies: ROS Unobtainable, Chills, Night Sweats, Fatigue, Malaise, Normal Appetite, Other Symptoms Constitutional: Denies: Chills, Fever, Malaise, Night Sweats, Weakness, Fatigue, Weight Loss, Lethargy, Other Pulmonary: Denies: Dyspnea, Cough, Pleuritic Chest Pain, Other Symptoms Cardiovascular: Denies: Chest Pain, Palpitations, Orthopnea, Paroxysmal Noc. Dyspnea, Edema, Lt Headedness, Other Symptoms Gastrointestinal: Denies: Nausea, Vomiting, Abdominal Pain, Diarrhea, Constipation, Melena, Hematochezia, Other Symptoms Musculoskeletal: Denies: Neck Pain, Back Pain, Shoulder Pain, Arm Pain, Hand Pain, Leg Pain, Foot Pain, Joint Pain, Muscle Pain, Spasms, Other Symptoms Neurological: Denies: Weakness, Numbness, Incoordination, Change in speech, Confusion, Seizures, Other Symptoms Objective Physical Examination General Exam: Positive: Alert, Cooperative Eye Exam: Positive: PERRLA, Conjunctiva & lids normal ENT Exam: Positive: Atraumatic Neck Exam: Positive: Supple Chest Exam: Positive: Clear to auscultation, Normal air movement Heart Exam: Positive: Rate Normal, Normal S1 Abdomen Exam: Positive: Normal bowel sounds, Soft Extremity Exam: Positive: Other (. Positive tenderness at right hip on palpation) Assessment /Plan Problems (1) Hip fracture Status: Acute Problem Text: is an 84 yr old w a PMH of NIDDM, Hypothyroidism, Severe Sleep apnea, Obesity and OA who tripped and fell resulting in a right hip fx. Right hip fracture status post right hip arthroplasty Patient is tolerating pain very well with current pain management with morphine sulfate Discharge planning and DVT prophylaxis as per orthopedic Physical therapy in progress (2) Osteoporosis Status: Chronic Problem Text: Possibly steroid induced Further f/u w PCP for DEXA and to select antiresorptive therapy (3) DIAN (obstructive sleep apnea) Status: Chronic Problem Text: bipap 05/12 based on sleep study done in 2010 Plan/VTE VTE Prophylaxis Ordered?: Yes VS, I&O, 24H, Fishbone Vital Signs/I&O Vital Signs Date Time Temp Pulse Resp B/P (MAP) Pulse Ox O2 Delivery O2 Flow Rate FiO2 11/14/19 10:00 98.5 84 18 132/58 (82) 97 Nasal Cannula 2.0 I&O- Last 24 Hours up to 6 AM 11/14/19 05:59 Intake Total 1410 ml Output Total 1650 ml Balance -240 ml Laboratory Data 24H LABS Laboratory Tests 2 11/13/19 11:52: Bedside Glucose (Misc Panel) 135H 11/13/19 12:28: Magnesium Level 1.9 11/13/19 22:12: Bedside Glucose (Misc Panel) 102 11/14/19 05:20: Bedside Glucose (Misc Panel) 118H 11/14/19 05:27: Immature Granulocyte % (Auto) 0.5, Neutrophils (%) (Auto) 81.3H, Lymphocytes (%) (Auto) 10.4L, Monocytes (%) (Auto) 7.4H, Eosinophils (%) (Auto) 0.2, Basophils (%) (Auto) 0.2, Neutrophils # (Auto) 9.9H, Lymphocytes # (Auto) 1.3L, Monocytes # (Auto) 0.9H, Eosinophils # (Auto) 0.0, Basophils # (Auto) 0.0, Nucleated Red Blood Cells % (auto) 0.0, Anion Gap 6L, Glomerular Filtration Rate > 60.0, Calcium Level 8.1L, Total Bilirubin 1.5H, Aspartate Amino Transf (AST/SGOT) 62H, Alanine Aminotransferase (ALT/SGPT) 44, Alkaline Phosphatase 105, Total Protein 5.1L, Albumin 2.3L, Albumin/Globulin Ratio 0.8L 11/14/19 11:40: Bedside Glucose (Misc Panel) 192H CBC/BMP Laboratory Tests 11/14/19 05:27 Microbiology Microbiology 11/12/19 Respiratory Virus Panel (PCR) (JODY) - Final, Complete RITIKA LEBRON MD Nov 14, 2019 11:51
[2019-11-14] MEDS: traMADol 50 MG TAB PO PRN (12:03)
[2019-11-14] MEDS: RIVAROXABAN 10 MG TAB (XARELTO) PO SCH (17:31)
[2019-11-14] MEDS: GABAPENTIN 100 MG CAP PO SCH (20:46)
[2019-11-15 05:03] VITALS: BP 138/76
[2019-11-15] MEDS: LEVOTHYROXINE 50MCG TABLET (0.05MG) PO SCH (05:15)
[2019-11-15] MEDS: ACETAMINOPHEN 500 MG TAB PO SCH ×3 (05:15→20:55)
[2019-11-15] MEDS: traMADol 50 MG TAB PO PRN ×2 (05:15→20:55)
[2019-11-15] MEDS ORDERED: MAGNESIUM CITRATE 300 ML BTL PO ONE (07:30)
[2019-11-15] MEDS ORDERED: TRAM50TA2 PO (07:40)
[2019-11-15] MEDS ORDERED: XARE10TA PO (07:40)
[2019-11-15] MEDS: MOM 30ML SUSPENSION UDC PO SCH (07:57)
[2019-11-15] MEDS: MIRALAX *UNIT DOSE* 17GM PACKET PO SCH ×2 (07:57→12:26)
[2019-11-15] MEDS: HumaLOG INSULIN (NovoLOG) PER UNIT SC SCH ×4 (07:57→20:59)
[2019-11-15] MEDS: VITAMIN D 1,000 INTERNATIONAL UNITS TABLET PO SCH (07:58)
[2019-11-15] MEDS: predniSONE 5 MG TAB PO SCH (07:58)
[2019-11-15] MEDS: PANTOPRAZOLE 40MG TAB (PROTONIX) PO SCH (07:58)
[2019-11-15] MEDS: predniSONE 2.5 MG TAB PO SCH (07:58)
--- NOTE | 2019-11-15 10:26 | IPNPDOC ---
Subjective Date Seen The patient was seen on 11/15/19. Subjective Chief Complaint/HPI Patient is comfortable in no distress Physical therapy in progress Marge to have a BM before she is transferred to nursing facility General: Denies: ROS Unobtainable, Chills, Night Sweats, Fatigue, Malaise, Normal Appetite, Other Symptoms Constitutional: Denies: Chills, Fever, Malaise, Night Sweats, Weakness, Fatigue, Weight Loss, Lethargy, Other Pulmonary: Denies: Dyspnea, Cough, Pleuritic Chest Pain, Other Symptoms Cardiovascular: Denies: Chest Pain, Palpitations, Orthopnea, Paroxysmal Noc. Dyspnea, Edema, Lt Headedness, Other Symptoms Gastrointestinal: Denies: Nausea, Vomiting, Abdominal Pain, Diarrhea, Constipation, Melena, Hematochezia, Other Symptoms Hematologic: Denies: Bruising, Bleeding Excessively, Petecchia, Purpura, Enlarged Lymph Nodes, Other Hematologic Endocrine: Denies: Polydipsia, Polyphagia, Polyuria, Heat Intolerance, Cold Intolerance, Other Endocrine Sx Musculoskeletal: Denies: Neck Pain, Back Pain, Shoulder Pain, Arm Pain, Hand Pain, Leg Pain, Foot Pain, Joint Pain, Muscle Pain, Spasms, Other Symptoms Neurological: Denies: Weakness, Numbness, Change in speech, Confusion Objective Physical Examination General Exam: Positive: Alert, Cooperative Eye Exam: Positive: PERRLA, Conjunctiva & lids normal ENT Exam: Positive: Atraumatic Neck Exam: Positive: Supple Chest Exam: Positive: Clear to auscultation, Normal air movement Heart Exam: Positive: Rate Normal, Normal S1 Abdomen Exam: Positive: Normal bowel sounds, Soft Extremity Exam: Positive: Other (. Positive tenderness at right hip on palpation) Assessment /Plan Problems (1) Hip fracture Status: Acute Problem Text: is an 84 yr old w a PMH of NIDDM, Hypothyroidism, Severe Sleep apnea, Obesity and OA who tripped and fell resulting in a right hip fx. Right hip fracture status post right hip arthroplasty Patient is tolerating pain very well with current pain management with morphine sulfate Physical therapy is in progress Patient needs to have a BM before she transferred back to nursing facility Further discharge planning as per orthopedic (2) Osteoporosis Status: Chronic Problem Text: Possibly steroid induced Further f/u w PCP for DEXA and to select antiresorptive therapy (3) DIAN (obstructive sleep apnea) Status: Chronic Problem Text: bipap 05/12 based on sleep study done in 2010 Plan/VTE VTE Prophylaxis Ordered?: Yes VS, I&O, 24H, Fishbone Vital Signs/I&O Vital Signs Date Time Temp Pulse Resp B/P (MAP) Pulse Ox O2 Delivery O2 Flow Rate FiO2 11/15/19 05:45 16 11/15/19 05:03 99.3 106 138/76 (96) 97 Nasal Cannula 2.0 I&O- Last 24 Hours up to 6 AM 11/15/19 06:00 Intake Total 2836 ml Output Total 600 ml Balance 2236 ml Laboratory Data 24H LABS Laboratory Tests 2 11/14/19 11:40: Bedside Glucose (Misc Panel) 192H 11/14/19 16:30: Bedside Glucose (Misc Panel) 154H 11/14/19 20:45: Bedside Glucose (Misc Panel) 226H 11/15/19 07:15: Bedside Glucose (Misc Panel) 133H Microbiology Microbiology 11/12/19 Respiratory Virus Panel (PCR) (JODY) - Final, Complete RITIKA LEBRON MD Nov 15, 2019 10:26
[2019-11-15] MEDS ORDERED: FLEET ENEMA PR PRN (11:45)
[2019-11-15] MEDS ORDERED: BISACODYL 10 MG SUPP PR ONE (11:45)
[2019-11-15 14:00] VITALS: BP 131/64
[2019-11-15] MEDS: RIVAROXABAN 10 MG TAB (XARELTO) PO SCH (17:31)
[2019-11-15] MEDS: GABAPENTIN 100 MG CAP PO SCH (20:55)
[2019-11-15 22:00] VITALS: BP 146/77
[2019-11-16] MEDS: LEVOTHYROXINE 50MCG TABLET (0.05MG) PO SCH (05:53)
[2019-11-16] MEDS: ACETAMINOPHEN 500 MG TAB PO SCH ×3 (05:53→21:34)
[2019-11-16] MEDS: traMADol 50 MG TAB PO PRN ×2 (05:54→21:34)
[2019-11-16 06:00] VITALS: BP 141/76
[2019-11-16] MEDS: HumaLOG INSULIN (NovoLOG) PER UNIT SC SCH ×4 (07:30→21:00)
[2019-11-16] MEDS: PANTOPRAZOLE 40MG TAB (PROTONIX) PO SCH (08:56)
[2019-11-16] MEDS: VITAMIN D 1,000 INTERNATIONAL UNITS TABLET PO SCH (08:56)
[2019-11-16] MEDS: predniSONE 2.5 MG TAB PO SCH (08:56)
[2019-11-16] MEDS: predniSONE 5 MG TAB PO SCH (08:56)
[2019-11-16] MEDS: MOM 30ML SUSPENSION UDC PO SCH (08:57)
[2019-11-16] MEDS: MIRALAX *UNIT DOSE* 17GM PACKET PO SCH (08:57)
--- NOTE | 2019-11-16 12:35 | IPNPDOC ---
Subjective Date Seen The patient was seen on 11/16/19. Subjective Chief Complaint/HPI No new complaints. She had a bowel movements at 1:10 PM yesterday, but they stopped taking patient's rehab after 1 PM ,unfortunately, she is to stay here until Monday now. General: Denies: ROS Unobtainable, Chills, Night Sweats, Fatigue, Malaise, Normal Appetite, Other Symptoms Constitutional: Denies: Chills, Fever, Malaise, Night Sweats, Weakness, Fatigue, Weight Loss, Lethargy, Other Pulmonary: Denies: Dyspnea, Cough, Pleuritic Chest Pain, Other Symptoms Cardiovascular: Denies: Chest Pain, Palpitations, Orthopnea, Paroxysmal Noc. Dyspnea, Edema, Lt Headedness, Other Symptoms Gastrointestinal: Denies: Nausea, Vomiting, Abdominal Pain, Diarrhea, Constipation, Melena, Hematochezia, Other Symptoms Endocrine: Denies: Polydipsia, Polyphagia, Polyuria, Heat Intolerance, Cold Intolerance, Other Endocrine Sx Musculoskeletal: Denies: Neck Pain, Back Pain, Shoulder Pain, Arm Pain, Hand Pain, Leg Pain, Foot Pain, Joint Pain, Muscle Pain, Spasms, Other Symptoms Neurological: Denies: Weakness, Numbness, Incoordination, Change in speech, Confusion, Seizures, Other Symptoms Objective Physical Examination General Exam: Positive: Alert, Cooperative Eye Exam: Positive: PERRLA, Conjunctiva & lids normal ENT Exam: Positive: Atraumatic Neck Exam: Positive: Supple Chest Exam: Positive: Clear to auscultation, Normal air movement Heart Exam: Positive: Rate Normal, Normal S1 Abdomen Exam: Positive: Normal bowel sounds, Soft Extremity Exam: Positive: Other (. Positive tenderness at right hip on palpation) Assessment /Plan Problems (1) Hip fracture Status: Acute Problem Text: is an 84 yr old w a PMH of NIDDM, Hypothyroidism, Severe Sleep apnea, Obesity and OA who tripped and fell resulting in a right hip fx. Right hip fracture status post right hip arthroplasty Patient is tolerating pain very well with current pain management with morphine sulfate Physical therapy is in progress Awaiting placement to rehabilitation till Monday (2) Osteoporosis Status: Chronic Problem Text: Possibly steroid induced Further f/u w PCP for DEXA and to select antiresorptive therapy (3) DIAN (obstructive sleep apnea) Status: Chronic Problem Text: bipap 05/12 based on sleep study done in 2011 Plan/VTE VTE Prophylaxis Ordered?: Yes VS, I&O, 24H, Fishbone Vital Signs/I&O Vital Signs Date Time Temp Pulse Resp B/P (MAP) Pulse Ox O2 Delivery O2 Flow Rate FiO2 11/16/19 06:24 16 11/16/19 06:00 98.6 91 141/76 (97) 98 Nasal Cannula 2.0 I&O- Last 24 Hours up to 6 AM 11/16/19 06:00 Intake Total 1140 ml Output Total 500 ml Balance 640 ml Laboratory Data 24H LABS Laboratory Tests 2 11/15/19 17:14: Bedside Glucose (Misc Panel) 199H 11/15/19 20:08: Bedside Glucose (Misc Panel) 101 11/16/19 06:13: Bedside Glucose (Misc Panel) 122H 11/16/19 11:28: Bedside Glucose (Misc Panel) 148H Microbiology Microbiology 11/12/19 Respiratory Virus Panel (PCR) (JODY) - Final, Complete RITIKA LEBRON MD Nov 16, 2019 12:35
[2019-11-16 14:00] VITALS: BP 133/61
[2019-11-16] MEDS: RIVAROXABAN 10 MG TAB (XARELTO) PO SCH (17:30)
[2019-11-16] MEDS: GABAPENTIN 100 MG CAP PO SCH (21:35)
[2019-11-16 22:00] VITALS: BP 160/69
[2019-11-17] MEDS: ACETAMINOPHEN 500 MG TAB PO SCH ×3 (05:54→21:11)
[2019-11-17] MEDS: LEVOTHYROXINE 50MCG TABLET (0.05MG) PO SCH (05:54)
[2019-11-17 06:00] VITALS: BP 156/77
[2019-11-17] MEDS: HumaLOG INSULIN (NovoLOG) PER UNIT SC SCH ×4 (07:30→21:00)
[2019-11-17] MEDS: MOM 30ML SUSPENSION UDC PO SCH (09:00)
[2019-11-17] MEDS: MIRALAX *UNIT DOSE* 17GM PACKET PO SCH (09:00)
[2019-11-17] MEDS: predniSONE 2.5 MG TAB PO SCH (09:32)
[2019-11-17] MEDS: VITAMIN D 1,000 INTERNATIONAL UNITS TABLET PO SCH (09:32)
[2019-11-17] MEDS: predniSONE 5 MG TAB PO SCH (09:32)
[2019-11-17] MEDS: PANTOPRAZOLE 40MG TAB (PROTONIX) PO SCH (09:32)
--- NOTE | 2019-11-17 10:21 | IPNPDOC ---
Subjective Date Seen The patient was seen on 11/17/19. Subjective Chief Complaint/HPI Patient is comfortable in no distress awaiting placement in Rehab tomorrow General: Denies: ROS Unobtainable, Chills, Night Sweats, Fatigue, Malaise, Normal Appetite, Other Symptoms Constitutional: Denies: Chills, Fever, Malaise, Night Sweats, Weakness, Fatigue, Weight Loss, Lethargy, Other Pulmonary: Denies: Dyspnea, Cough, Pleuritic Chest Pain, Other Symptoms Cardiovascular: Denies: Chest Pain, Palpitations, Orthopnea, Paroxysmal Noc. Dyspnea, Edema, Lt Headedness, Other Symptoms Gastrointestinal: Denies: Nausea, Vomiting, Abdominal Pain, Diarrhea, Constipation, Melena, Hematochezia, Other Symptoms Musculoskeletal: Denies: Neck Pain, Back Pain, Shoulder Pain, Arm Pain, Hand Pain, Leg Pain, Foot Pain, Joint Pain, Muscle Pain, Spasms, Other Symptoms Neurological: Denies: Weakness, Numbness, Incoordination, Change in speech, Confusion, Seizures, Other Symptoms Objective Physical Examination General Exam: Positive: Alert, Cooperative Eye Exam: Positive: PERRLA, Conjunctiva & lids normal ENT Exam: Positive: Atraumatic Neck Exam: Positive: Supple Chest Exam: Positive: Clear to auscultation, Normal air movement Heart Exam: Positive: Rate Normal, Normal S1 Abdomen Exam: Positive: Normal bowel sounds, Soft Extremity Exam: Positive: Other (. Positive tenderness at right hip on palpation) Assessment /Plan Problems (1) Hip fracture Status: Acute Problem Text: is an 84 yr old w a PMH of NIDDM, Hypothyroidism, Severe Sleep apnea, Obesity and OA who tripped and fell resulting in a right hip fx. Right hip fracture status post right hip arthroplasty Patient is tolerating pain very well with current pain management with morphine sulfate Physical therapy is in progress Placement and rehabilitation tomorrow (2) Osteoporosis Status: Chronic Problem Text: Possibly steroid induced Further f/u w PCP for DEXA and to select antiresorptive therapy (3) DIAN (obstructive sleep apnea) Status: Chronic Problem Text: bipap 05/12 based on sleep study done in 2010 (4) HTN (hypertension) Status: Acute Problem Text: Slightly elevated blood pressure noted since admission Will start patient on small dose of beta tiffanie at a prolonged to 0.5 mg by mouth twice a day to control her blood pressure . We'll continue monitoring his vital signs she is discharged Plan/VTE VTE Prophylaxis Ordered?: Yes VS, I&O, 24H, Fishbone Vital Signs/I&O Vital Signs Date Time Temp Pulse Resp B/P (MAP) Pulse Ox O2 Delivery O2 Flow Rate FiO2 11/17/19 06:00 98.4 89 20 156/77 (103) 98 Nasal Cannula 2.0 I&O- Last 24 Hours up to 6 AM 11/17/19 05:59 Intake Total 700 ml Balance 700 ml Laboratory Data 24H LABS Laboratory Tests 2 11/16/19 11:28: Bedside Glucose (Misc Panel) 148H 11/16/19 16:44: Bedside Glucose (Misc Panel) 170H 11/16/19 20:32: Bedside Glucose (Misc Panel) 174H 11/17/19 06:08: Bedside Glucose (Misc Panel) 110 Microbiology Microbiology 11/12/19 Respiratory Virus Panel (PCR) (JODY) - Final, Complete RITIKA LEBRON MD Nov 17, 2019 10:21
[2019-11-17] MEDS: METOPROLOL TART 12.5 MG PER 1/2 TAB PO SCH ×2 (10:47→21:11)
[2019-11-17] MEDS: traMADol 50 MG TAB PO PRN (12:40)
[2019-11-17 14:39] VITALS: BP 152/74
[2019-11-17] MEDS: RIVAROXABAN 10 MG TAB (XARELTO) PO SCH (17:46)
[2019-11-17 20:32] VITALS: BP 152/75
[2019-11-17] MEDS: GABAPENTIN 100 MG CAP PO SCH (21:10)
[2019-11-18 05:44] LABS: BASO # 0.1 10^3/uL (0.0-0.2); BASO % 0.5 % (0.0-1.0); EOS # 0.2 10^3/uL (0.0-0.5); EOS % 1.4 % (0.0-3.0); HEMOGLOBIN 7.9 g/dl (12.0-15.5); LYMPH # 2.5 10^3/uL (1.5-5.0); LYMPH % 22.8 % (24.0-44.0); MEAN CORPUSCULAR HGB CONC 29.3 g/dl (32.0-36.5); MEAN CORPUSCULAR VOLUME 88.8 fl (80.0-96.0); MONO # 0.8 10^3/uL (0.0-0.8); MONO % 7.5 % (0.0-5.0); NEUTROPHILS # 7.4 10^3/uL (1.5-8.5); NEUTROPHILS % 66.9 % (36.0-66.0); PLATELET COUNT, AUTOMATED 340 10^3/uL (150-450); RED BLOOD COUNT 3.04 10^6/uL (4.00-5.40); WHITE BLOOD COUNT 11.1 10^3/uL (4.0-10.0)
[2019-11-18] MEDS: ACETAMINOPHEN 500 MG TAB PO SCH (05:50)
[2019-11-18] MEDS: LEVOTHYROXINE 50MCG TABLET (0.05MG) PO SCH (05:50)
[2019-11-18 06:00] VITALS: BP 156/72
[2019-11-18 06:15] LABS: ALBUMIN 1.8 GM/DL (3.2-5.2); ALT/SGPT 57 U/L (12-78); BILIRUBIN,TOTAL 0.6 MG/DL (0.2-1.0); BLOOD UREA NITROGEN 19 MG/DL (7-18); CALCIUM LEVEL 8.5 MG/DL (8.8-10.2); CARBON DIOXIDE LEVEL 31 MEQ/L (21-32); CHLORIDE LEVEL 105 MEQ/L (98-107); CREATININE FOR GFR 0.75 MG/DL (0.55-1.30); GLOMERULAR FILTRATION RATE > 60.0 (>32); GLUCOSE, FASTING 107 MG/DL (70-100); POTASSIUM SERUM 4.1 MEQ/L (3.5-5.1); SODIUM LEVEL 141 MEQ/L (136-145); TOTAL PROTEIN 5.6 GM/DL (6.4-8.2)
[2019-11-18 08:43] VITALS: BP 156/72
[2019-11-18] MEDS: MOM 30ML SUSPENSION UDC PO SCH (08:43)
[2019-11-18] MEDS: VITAMIN D 1,000 INTERNATIONAL UNITS TABLET PO SCH (08:43)
[2019-11-18] MEDS: PANTOPRAZOLE 40MG TAB (PROTONIX) PO SCH (08:43)
[2019-11-18] MEDS: METOPROLOL TART 12.5 MG PER 1/2 TAB PO SCH (08:43)
[2019-11-18] MEDS: predniSONE 2.5 MG TAB PO SCH (08:45)
[2019-11-18] MEDS: predniSONE 5 MG TAB PO SCH (08:45)
[2019-11-18] MEDS: HumaLOG INSULIN (NovoLOG) PER UNIT SC SCH ×2 (08:45→12:17)
[2019-11-18] MEDS: MIRALAX *UNIT DOSE* 17GM PACKET PO SCH (08:45)
--- NOTE | 2019-11-18 11:39 | DS.PDOC ---
Discharge Summary General Date of Admission Nov 12, 2019 at 16:30 Date of Discharge 11/18/19 Discharge Summary PROCEDURES PERFORMED DURING STAY: None. ADMITTING DIAGNOSES: 1. Hip fracture. DISCHARGE DIAGNOSES: 1. Right hip fracture, status post ORIF right hip, diabetes mellitus type 2, hypertension, GERD. COMPLICATIONS/CHIEF COMPLAINT: Hip Fracture. HISTORY OF PRESENT ILLNESS: HISTORY OF PRESENT ILLNESS: Patient is an 84 year old female with a past medical history significant for hypertension, diabetes mellitus type 2, and GERD who presented to the [facility] ER with complaint of right hip pain after a fall. Patient stated she was bringing her groceries into the house and was in her living room when she tripped and fell landing on her right side. She stated that she was unable to get up at the time and called her children who live close by. She states that it was about an hour before she was able to get help. She denied any loss of consciousness when she fell. She states that she has fallen before however has not fallen at all in the past year. On presentation to the ER the patient was found to be in hypertensive urgency likely secondary to her pain but otherwise vitally stable. She received a hip/pelvis x-ray in the ER which demonstrated a right femoral neck fracture. Hospitalist service was consulted and the patient was admitted for further evaluation and management. HOSPITAL COURSE: is an 84 yr old w a PMH of NIDDM, Hypothyroidism, Severe Sleep apnea, Obesity and OA who tripped and fell resulting in a right hip fx. Right hip fracture status post right hip arthroplasty Patient is tolerating pain very well with current pain management with morphine sulfate Physical therapy was continued and it today. She will be discharged to [facility] Continue all current medications and further physical therapy as per accepting facility Patient has a history of Possibly steroid induced Further f/u w PCP for DEXA and to select antiresorptive therapy Pt with history of obstructive sleep apnea bipap 05/12 based on sleep study done in 2010 Hypertension: Slightly elevated blood pressure noted since admission Under control with current medications. Continue the same . DISCHARGE MEDICATIONS: Please see below. ALLERGIES: Please see below. PHYSICAL EXAMINATION ON DISCHARGE: VITAL SIGNS: Please see below. GENERAL: Within normal limits HEENT: PERRLA. Extraocular muscles intact NECK: Supple. Negative JVD, negative lymphadenopathy CARDIOVASCULAR EXAMINATION: S1, S2, regular RESPIRATORY EXAMINATION: Clear to A&P ABDOMINAL EXAMINATION: , Soft, nontender. Bowels are present EXTREMITIES: No clubbing, cyanosis, edema SKIN: Normal NEUROLOGICAL EXAMINATION: . No focal motor sensory deficit PSYCHIATRIC EXAMINATION: Normal LABORATORY DATA: Please see below. IMAGING: Hip x-ray: Impression: Expected postoperative findings by plain film evaluation following total right hip arthroplasty. PROGNOSIS: Good ACTIVITY: As tolerated. DIET: As tolerated DISCHARGE PLAN: Discharge to [facility] DISPOSITION: .[facility] DISCHARGE INSTRUCTIONS: 1. As per discharge instructions. ITEMS TO FOLLOWUP ON ON OUTPATIENT: 1. Follow with also as per their recommendations. DISCHARGE CONDITION: Stable. TIME SPENT ON DISCHARGE:40 minutes. Vital Signs/I&Os Vital Signs Date Time Temp Pulse Resp B/P (MAP) Pulse Ox O2 Delivery O2 Flow Rate FiO2 11/18/19 08:43 72 156/72 11/18/19 06:00 98.0 17 99 Room Air 11/17/19 21:00 2.0 I&O- Last 24 Hours up to 6 AM 11/18/19 06:00 Intake Total 2370 ml Output Total 1450 ml Balance 920 ml Laboratory Data Labs 24H Laboratory Tests 2 11/17/19 12:19: Bedside Glucose (Misc Panel) 120H 11/17/19 16:56: Bedside Glucose (Misc Panel) 148H 11/17/19 20:35: Bedside Glucose (Misc Panel) 151H 11/18/19 05:27: Immature Granulocyte % (Auto) 0.9, Neutrophils (%) (Auto) 66.9H, Lymphocytes (%) (Auto) 22.8L, Monocytes (%) (Auto) 7.5H, Eosinophils (%) (Auto) 1.4, Basophils (%) (Auto) 0.5, Neutrophils # (Auto) 7.4, Lymphocytes # (Auto) 2.5, Monocytes # (Auto) 0.8, Eosinophils # (Auto) 0.2, Basophils # (Auto) 0.1, Nucleated Red Blood Cells % (auto) 0.4H, Anion Gap 5L, Glomerular Filtration Rate > 60.0, Calcium Level 8.5L, Total Bilirubin 0.6, Aspartate Amino Transf (AST/SGOT) 59H, Alanine Aminotransferase (ALT/SGPT) 57, Alkaline Phosphatase 208H, Total Protein 5.6L, Albumin 1.8L, Albumin/Globulin Ratio 0.5L CBC/BMP Laboratory Tests 11/18/19 05:27 FSBS Laboratory Tests Test 11/17/19 12:19 11/17/19 16:56 11/17/19 20:35 Range/Units Bedside Glucose (Misc Panel) 120 148 151 83-110 MG/DL Microbiology Microbiology 11/12/19 Respiratory Virus Panel (PCR) (JODY) - Final, Complete Discharge Medications Scheduled Aspirin (Aspirin EC) 81 Mg Tablet.dr, 81 MG PO DAILY, (Reported) Cetirizine HCl (Cetirizine HCl) 10 Mg Tablet, 10 MG PO DAILY, (Reported) Cholecalciferol (Vitamin D3) (Vitamin D3) 1,000 Unit Tablet, 1,000 UNITS PO DAILY, (Reported) Cyanocobalamin (Vitamin B-12) (Vitamin B-12) 1,000 Mcg Tablet, 1,000 MCG PO DAILY, (Reported) Folic Acid (Folic Acid) 0.8 Mg Capsule, 800 MCG PO QPM, (Reported) Gabapentin (Gabapentin) 100 Mg Capsule, 200 MG PO QHS, (Reported) Levothyroxine Sodium (Levoxyl) 50 Mcg Tablet, 50 MCG PO DAILY, (Reported) Losartan Potassium (Losartan Potassium) 50 Mg Tablet, 50 MG PO DAILY, (Reported) Metformin HCl (Metformin HCl) 500 Mg Tablet, 500 MG PO DAILY, (Reported) Pantoprazole Sodium (Pantoprazole Sodium) 40 Mg Tablet.dr, 40 MG PO DAILY, (Reported) Prednisone (Prednisone) 2.5 Mg Tablet, 2.5 MG PO DAILY, (Reported) 7.5MG TOTAL DAILY Prednisone (Prednisone) 5 Mg Tablet, 5 MG PO DAILY, (Reported) 7.5MG TOTAL DAILY Rivaroxaban (Xarelto) 10 Mg Tablet, 10 MG PO DAILY Scheduled PRN Montelukast Sodium (Montelukast Sodium) 10 Mg Tablet, 10 MG PO QHS PRN for ALLERGIES, (Reported) Tramadol HCl (Tramadol HCl) 50 Mg Tablet, 1-2 TAB PO Q4H PRN for PAIN Allergies Coded Allergies: No Known Allergies (Unverified , 12/20/16) RITIKA LEBRON MD Nov 18, 2019 11:39
== END 2019-11-18 13:25 | DRG 470 ==
LOC: EDBD 14:36 → M ED 14:36 → M ED INP 16:30 → M MS5PR 18:05
PROVIDERS: ADMIT Internal Medicine; ATTEND Internal Medicine
PROC: 0SRR0JA Replacement of Right Hip Joint, Femoral Surface with Synthetic Substitute, Uncemented, Open Approach (ICD-10-PCS; principal; 2019-11-13 15:30)
DX: S72.001A Fracture of unspecified part of neck of right femur, initial encounter for closed fracture (principal); E11.9 Type 2 diabetes mellitus without complications; I10 Essential (primary) hypertension; K21.9 Gastro-esophageal reflux disease without esophagitis; W18.30XA Fall on same level, unspecified, initial encounter; Y92.009 Unspecified place in unspecified non-institutional (private) residence as the place of occurrence of the external cause; I16.0 Hypertensive urgency; E03.9 Hypothyroidism, unspecified; G47.33 Obstructive sleep apnea (adult) (pediatric); E66.9 Obesity, unspecified; M19.90 Unspecified osteoarthritis, unspecified site; Z79.82 Long term (current) use of aspirin; Z79.899 Other long term (current) drug therapy; M81.0 Age-related osteoporosis without current pathological fracture; Z79.52 Long term (current) use of systemic steroids

== ENCOUNTER → 2019-11-19 | Outpatient (REF) ==
[~2019-11-19] MED LIST changes: +ALL10TAB29 PO; +ASPI-161 PO; +CYAN100050 PO; +FOLI800C PO; +GABA-1171 PO; +LEVO50TA45 PO; +LOSA25TA14; +LOSA50TA88 PO; +METF-839 PO; +MONT10TA4 PO; +NAPR-837 PO; +NAPR-885 PO; +PANT-23 PO; +PRED25TA PO; +PRED5TA PO; +TRAM50TA2 PO; +VITAD1000T PO; +XARE10TA PO
[2019-11-19 13:07] LABS: BLOOD UREA NITROGEN 16 MG/DL (7-18); CALCIUM LEVEL 8.9 MG/DL (8.8-10.2); CARBON DIOXIDE LEVEL 29 MEQ/L (21-32); CHLORIDE LEVEL 101 MEQ/L (98-107); CREATININE FOR GFR 0.91 MG/DL (0.55-1.30); GLOMERULAR FILTRATION RATE > 60.0 (>32); GLUCOSE, FASTING 88 MG/DL (70-100); POTASSIUM SERUM 4.6 MEQ/L (3.5-5.1); SODIUM LEVEL 139 MEQ/L (136-145)
[2019-11-19 13:34] LABS: HEMATOCRIT 31.7 % (36.0-47.0); HEMOGLOBIN 8.9 g/dl (12.0-15.5); MEAN CORPUSCULAR HEMOGLOBIN 25.5 pg (27.0-33.0); MEAN CORPUSCULAR HGB CONC 28.1 g/dl (32.0-36.5); MEAN CORPUSCULAR VOLUME 90.8 fl (80.0-96.0); PLATELET COUNT, AUTOMATED 488 10^3/uL (150-450); RED BLOOD COUNT 3.49 10^6/uL (4.00-5.40)
== END ==
PROVIDERS: ATTEND Internal Medicine
DX: D64.9 Anemia, unspecified (principal)

== ENCOUNTER → 2019-11-20 | Outpatient (REF) ==
[2019-11-20 13:09] LABS: HEMATOCRIT 31.7 % (36.0-47.0); HEMOGLOBIN 8.9 g/dl (12.0-15.5); MEAN CORPUSCULAR HEMOGLOBIN 25.6 pg (27.0-33.0); MEAN CORPUSCULAR HGB CONC 28.1 g/dl (32.0-36.5); MEAN CORPUSCULAR VOLUME 91.1 fl (80.0-96.0); PLATELET COUNT, AUTOMATED 519 10^3/uL (150-450); RED BLOOD COUNT 3.48 10^6/uL (4.00-5.40); WHITE BLOOD COUNT 11.9 10^3/uL (4.0-10.0)
[2019-11-20 13:18] LABS: PERCENT SATURATION 26.8 % (13.2-45.0)
== END ==
PROVIDERS: ATTEND Internal Medicine
DX: S72.001D Fracture of unspecified part of neck of right femur, subsequent encounter for closed fracture with routine healing (principal)

== ENCOUNTER → 2019-11-25 | Outpatient (REF) ==
[2019-11-25 11:11] LABS: HEMATOCRIT 32.4 % (36.0-47.0); HEMOGLOBIN 9.1 g/dl (12.0-15.5); MEAN CORPUSCULAR HEMOGLOBIN 26.3 pg (27.0-33.0); MEAN CORPUSCULAR HGB CONC 28.1 g/dl (32.0-36.5); MEAN CORPUSCULAR VOLUME 93.6 fl (80.0-96.0); PLATELET COUNT, AUTOMATED 714 10^3/uL (150-450); RED BLOOD COUNT 3.46 10^6/uL (4.00-5.40); WHITE BLOOD COUNT 11.9 10^3/uL (4.0-10.0)
[2019-11-25 11:35] LABS: BLOOD UREA NITROGEN 13 MG/DL (7-18); CALCIUM LEVEL 9.1 MG/DL (8.8-10.2); CARBON DIOXIDE LEVEL 28 MEQ/L (21-32); CHLORIDE LEVEL 106 MEQ/L (98-107); CREATININE FOR GFR 0.84 MG/DL (0.55-1.30); GLOMERULAR FILTRATION RATE > 60.0 (>32); GLUCOSE, FASTING 90 MG/DL (70-100); POTASSIUM SERUM 4.7 MEQ/L (3.5-5.1); SODIUM LEVEL 144 MEQ/L (136-145)
== END ==
PROVIDERS: ATTEND Internal Medicine
DX: Z79.899 Other long term (current) drug therapy (principal)

== ENCOUNTER → 2019-11-30 | Outpatient (REF) | payer MEDICARE ==
[~2019-11-30] MED LIST changes: -ALL10TAB29 PO; -ASPI81TA85 PO; +ASPI81TA86 PO; +CETI-24 PO; +D31000TA2 PO; +MONT10TA10 PO; -MONT10TA4 PO; -VITAD1000T PO
== END ==
PROVIDERS: ATTEND Internal Medicine
DX: I10 Essential (primary) hypertension (principal); E11.9 Type 2 diabetes mellitus without complications; E03.9 Hypothyroidism, unspecified; Z79.899 Other long term (current) drug therapy

== ENCOUNTER → 2019-12-02 | Outpatient (REF) | payer MEDICARE ==
[~2019-12-02] MED LIST changes: +ALL10TAB29 PO; +ASPI81TA85 PO; -ASPI81TA86 PO; -CETI-24 PO; -D31000TA2 PO; -MONT10TA10 PO; +MONT10TA4 PO; +VITAD1000T PO
[2019-12-02 10:29] LABS: HEMATOCRIT 33.6 % (36.0-47.0); HEMOGLOBIN 9.4 g/dl (12.0-15.5); MEAN CORPUSCULAR HEMOGLOBIN 26.9 pg (27.0-33.0); MEAN CORPUSCULAR VOLUME 96.3 fl (80.0-96.0); PLATELET COUNT, AUTOMATED 630 10^3/uL (150-450); RED BLOOD COUNT 3.49 10^6/uL (4.00-5.40); WHITE BLOOD COUNT 7.8 10^3/uL (4.0-10.0)
[2019-12-02 10:47] LABS: BLOOD UREA NITROGEN 11 MG/DL (7-18); CALCIUM LEVEL 9.1 MG/DL (8.8-10.2); CARBON DIOXIDE LEVEL 30 MEQ/L (21-32); CHLORIDE LEVEL 108 MEQ/L (98-107); CREATININE FOR GFR 0.92 MG/DL (0.55-1.30); GLOMERULAR FILTRATION RATE > 60.0 (>32); GLUCOSE, FASTING 105 MG/DL (70-100); POTASSIUM SERUM 4.4 MEQ/L (3.5-5.1); SODIUM LEVEL 143 MEQ/L (136-145)
== END ==
PROVIDERS: ATTEND Physician Assistant
DX: M25.559 Pain in unspecified hip (principal)

== ENCOUNTER 2019-12-28 09:20 | Emergency (ER) | payer MEDICARE ==
[~2019-12-28 09:20] MED LIST changes: -ALL10TAB29 PO; -ASPI81TA85 PO; +ASPI81TA86 PO; +CETI-24 PO; +D31000TA2 PO; -VITAD1000T PO
[2019-12-28] MEDS ORDERED: ONDANSETRON 4MG/2ML VIAL ONE (09:21)
[2019-12-28] MEDS ORDERED: MECLIZINE 25 MG TABLET ONE (09:21)
[2019-12-28] MEDS ORDERED: ONDANSETRON 4MG/2ML VIAL As Ordered ONE (10:56)
[2019-12-28] MEDS ORDERED: MECLIZINE 25 MG TABLET As Ordered ONE (10:56)
[2020-01-24 14:22] LABS: BASO # 0.1 10^3/uL (0.0-0.2); BASO % 0.5 % (0.0-1.0); EOS % 0.3 % (0.0-3.0); HEMATOCRIT 38.4 % (36.0-47.0); HEMOGLOBIN 11.2 g/dl (12.0-15.5); LYMPH # 0.9 10^3/uL (1.5-5.0); LYMPH % 8.9 % (24.0-44.0); MEAN CORPUSCULAR HEMOGLOBIN 28.3 pg (27.0-33.0); MEAN CORPUSCULAR HGB CONC 29.2 g/dl (32.0-36.5); MONO # 0.6 10^3/uL (0.0-0.8); MONO % 5.3 % (0.0-5.0); NEUTROPHILS # 8.9 10^3/uL (1.5-8.5); NEUTROPHILS % 84.5 % (36.0-66.0); PLATELET COUNT, AUTOMATED 423 10^3/uL (150-450); RED BLOOD COUNT 3.96 10^6/uL (4.00-5.40); WHITE BLOOD COUNT 10.5 10^3/uL (4.0-10.0)
[2020-02-04 08:07] LABS: CALCIUM LEVEL 9.5 MG/DL (8.8-10.2); CREATININE FOR GFR 0.99 MG/DL (0.55-1.30); GLOMERULAR FILTRATION RATE 56.9 (>32); POTASSIUM SERUM 4.3 MEQ/L (3.5-5.1)
--- NOTE | 2020-02-20 16:15 | ECGEPIP ---
SINUS TACHYCARDIA NONSPECIFIC ST & T-WAVE CHANGES SEE SCANNED DOWNTIME REPORT MTDD
== END 2019-12-28 22:52 | disposition home or self-care (01) ==
LOC: M ED 09:20
DX: R42 Dizziness and giddiness (principal); I10 Essential (primary) hypertension; E78.5 Hyperlipidemia, unspecified; Z79.899 Other long term (current) drug therapy; Z79.890 Hormone replacement therapy; Z79.82 Long term (current) use of aspirin; Z79.84 Long term (current) use of oral hypoglycemic drugs
CPT/HCPCS: 70450; 80048; 85025; 93005; 96374; 99284; J2405

== ENCOUNTER → 2020-01-06 | Outpatient (REF) | payer MEDICARE | LOC: M LAB REF 09:51 | PROVIDERS: ATTEND Internal Medicine | DX: M35.3 Polymyalgia rheumatica (principal); N39.0 Urinary tract infection, site not specified; M54.5 Low back pain ==

== ENCOUNTER → 2020-04-28 | Outpatient (REF) | payer MEDICARE ==
[2020-04-28 17:20] LABS: PERCENT SATURATION 16.8 % (13.2-45.0)
== END ==
LOC: M LAB REF 16:27
PROVIDERS: ATTEND Internal Medicine
DX: D50.9 Iron deficiency anemia, unspecified (principal)

== ENCOUNTER → 2020-10-20 | Outpatient (REF) | payer MEDICARE ==
[~2020-10-20] MED LIST changes: +FOLI0.8T3 PO; -FOLI800T PO; +GABA-283 PO; -GABA-845 PO; +MONT10TA10 PO; -MONT10TA4 PO
[2020-10-20 17:21] LABS: PERCENT SATURATION 23.4 % (13.2-45.0)
== END ==
LOC: M LAB REF 16:24
PROVIDERS: ATTEND Internal Medicine
DX: D50.9 Iron deficiency anemia, unspecified (principal)

== ENCOUNTER → 2021-01-05 | Outpatient (CLI) | payer MEDICARE ==
[~2021-01-05] MED LIST changes: +E-Z-GAS II EFFERVESCENT PACKET (SODIUM BICARB./CITRIC ACID/SIMETHICONE) As Ordered ONE; +E-Z-HD 98% w/w 340GM SUSP BTL As Ordered ONE; +E-Z-PAQUE 96% w/w SUSP 176GM BTL As Ordered ONE; +LOSA25TA13; -LOSA25TA14; +LOSA50TA28 PO; -LOSA50TA88 PO; -MONT10TA10 PO; +MONT10TA97 PO
== END ==
LOC: M RAD 08:33
PROVIDERS: ATTEND Physician Assistant Medical
DX: K21.9 Gastro-esophageal reflux disease without esophagitis (principal)

== ENCOUNTER → 2021-01-20 | Outpatient (CLI) | payer MEDICARE ==
[~2021-01-20] MED LIST changes: +BARIUM SULFATE 700 MG TABLET (E-Z-DISK) As Ordered ONE; -E-Z-GAS II EFFERVESCENT PACKET (SODIUM BICARB./CITRIC ACID/SIMETHICONE) As Ordered ONE; -E-Z-HD 98% w/w 340GM SUSP BTL As Ordered ONE; -LOSA25TA13; +LOSA25TA14; -LOSA50TA28 PO; +LOSA50TA88 PO; +MONT10TA10 PO; -MONT10TA97 PO; +VARIBAR NECTAR 40% w/v 240ML SUSP BTL As Ordered ONE; +VARIBAR PUDDING 40% w/v 230ML TUBE As Ordered ONE
--- NOTE | 2021-01-20 16:42 | REP ---
INDICATION: R13.10 DYSPHAGIA,UNSPECIFIED. COMPARISON: None. TECHNIQUE: The procedure was performed by Connie Marcelino [facility], under the direct supervision of Dr. Roldan. The procedure was performed with Zabrina Muñiz from speech pathology present. 5 ml aliquots of thin, pudding, mixed fruit with thin consistency base, soft food, and hard food consistency barium was administered. FINDINGS: Flash penetration was visualized with thin consistency barium. The detailed report of this examination will be provided by speech pathology. IMPRESSION: Flash penetration with thin consistency barium, a detailed report will be provided by speech pathology. 1.9 minutes of fluoroscopy time was utilized for this procedure. Some fluoroscopic images are performed with last image hold technology. These images require no additional radiation <Electronically signed by Connie Marcelino > 01/20/21 [id number] <Electronically signed by Arnold Roldan > 01/20/21 [id number]
== END ==
LOC: M RAD 08:22
PROVIDERS: ATTEND Physician Assistant Medical
DX: R13.10 Dysphagia, unspecified (principal)

== ENCOUNTER → 2021-03-04 | Outpatient (REF) | payer MEDICARE ==
[~2021-03-04] MED LIST changes: -BARIUM SULFATE 700 MG TABLET (E-Z-DISK) As Ordered ONE; -E-Z-PAQUE 96% w/w SUSP 176GM BTL As Ordered ONE; -VARIBAR NECTAR 40% w/v 240ML SUSP BTL As Ordered ONE; -VARIBAR PUDDING 40% w/v 230ML TUBE As Ordered ONE
[2021-03-04 14:22] LABS: PERCENT SATURATION 28.1 % (13.2-45.0)
== END ==
LOC: M LAB REF 13:03
PROVIDERS: ATTEND Internal Medicine
DX: D50.9 Iron deficiency anemia, unspecified (principal)

== ENCOUNTER → 2021-03-22 | Outpatient (CLI) | payer MEDICARE ==
[~2021-03-22] MED LIST changes: +ISOVUE-370 76% 100ML VIAL As Ordered ONE
--- NOTE | 2021-03-22 16:59 | REP ---
INDICATION: F/U PULMONARY NODULES COMPARISON: Multiple the latest 01/28/2020 TECHNIQUE: Standard helical technique after the intravenous administration of 100 cc Isovue 370 FINDINGS: The mediastinum and pulmonary vania are stable. No mass or adenopathy has developed. There are no pleural or pericardial effusions. There is no significant change in appearance of the imaged upper abdomen or imaged osseous structures. There is a large hiatal hernia status quo. There are multiple vertebral body compression fractures Evaluation of the lung junior shows improved nearly resolved right middle lobe nodular densities. There is a stable single right middle lobe nodule. There are basilar fibrotic changes and mild cylindrical bronchiectasis status quo. There are no new abnormal nodules, masses, or opacities. IMPRESSION: There has been some improvement as described above. There are no new abnormal nodules. Follow-up as clinically relevant. <Electronically signed by Tony Muhammad > 03/22/21 [id number]
== END ==
LOC: M RAD 16:02
PROVIDERS: ATTEND Internal Medicine
DX: R91.1 Solitary pulmonary nodule (principal)
CPT/HCPCS: 71260; Q9967

== ENCOUNTER 2021-06-09 08:53 | Outpatient (CLI) | payer MEDICARE ==
[~2021-06-09] VITALS: Ht 162.6 cm; Wt 77.1 kg
[~2021-06-09 08:53] MED LIST changes: +ALBUTEROL 90 MCG/ACT 8GM HFA INHALER INH PRN; +ALBUTEROL SULFATE 2.5 MG/0.5 ML INH NEB SOLN INH PRN; +EPINEPHrine INJ 1 MG/ML 1ML AMP IM PRN; -ISOVUE-370 76% 100ML VIAL As Ordered ONE; +NS 1,000 ML IV SCH; +diphenhydrAMINE 50MG/ML VIAL (J1200) IV PRN; +methylPREDNISolone 125MG 2ML VIAL IV PRN
[2021-06-09] MEDS ORDERED: BAMLANIVIMAB 700 MG, ETESEVIMAB 1,400 MG in NS 250 ML IV ONE (09:00)
[2021-06-09 09:09] VITALS: BP 134/64
[2021-06-09 09:39] VITALS: BP 140/64
[2021-06-09 10:09] VITALS: BP 136/64
[2021-06-09 11:09] VITALS: BP 166/79
== END 2021-06-09 11:09 | disposition home or self-care (01) ==
LOC: M OPCLI4PR 08:53
PROVIDERS: ATTEND Internal Medicine
DX: U07.1 COVID-19 (principal)

== ENCOUNTER → 2022-03-23 | Outpatient (REF) | payer MEDICARE ==
[~2022-03-23] MED LIST changes: -ALBUTEROL 90 MCG/ACT 8GM HFA INHALER INH PRN; -ALBUTEROL SULFATE 2.5 MG/0.5 ML INH NEB SOLN INH PRN; -D31000TA2 PO; -EPINEPHrine INJ 1 MG/ML 1ML AMP IM PRN; +LOSA25TA13; -LOSA25TA14; +LOSA50TA28 PO; -LOSA50TA88 PO; -MONT10TA10 PO; +MONT10TA97 PO; -NS 1,000 ML IV SCH; +VITA100093 PO; -diphenhydrAMINE 50MG/ML VIAL (J1200) IV PRN; -methylPREDNISolone 125MG 2ML VIAL IV PRN
[2022-03-23 15:25] LABS: PERCENT SATURATION 12.1 % (13.2-45.0)
== END ==
LOC: M LAB REF 12:44
PROVIDERS: ATTEND Internal Medicine
DX: D50.9 Iron deficiency anemia, unspecified (principal)

== ENCOUNTER → 2022-06-02 | Outpatient (REF) | payer MEDICARE | LOC: M LAB REF 16:52 | PROVIDERS: ATTEND Internal Medicine | DX: R10.32 Left lower quadrant pain (principal) ==

== ENCOUNTER → 2022-06-15 | Outpatient (CLI) | payer MEDICARE ==
[~2022-06-15] MED LIST changes: +GASTROGRAFIN SOLUTION 30ML As Ordered ONE; +ISOVUE-370 76% 100ML VIAL As Ordered ONE
== END ==
LOC: M RAD 08:40
PROVIDERS: ATTEND Internal Medicine
DX: R10.32 Left lower quadrant pain (principal)
CPT/HCPCS: 74177; Q9963; Q9967

== ENCOUNTER → 2022-07-12 | Outpatient (REF) | payer MEDICARE ==
[~2022-07-12] MED LIST changes: -GASTROGRAFIN SOLUTION 30ML As Ordered ONE; -ISOVUE-370 76% 100ML VIAL As Ordered ONE
== END ==
LOC: M LAB REF 15:59
PROVIDERS: ATTEND Internal Medicine
DX: I50.32 Chronic diastolic (congestive) heart failure (principal)

== ENCOUNTER → 2022-08-02 | Outpatient (CLI) | payer MEDICARE ==
[~2022-08-02] MED LIST changes: +ISOVUE-370 76% 100ML VIAL As Ordered ONE
== END ==
LOC: M RAD 15:25
PROVIDERS: ATTEND Internal Medicine
DX: R49.0 Dysphonia (principal)
CPT/HCPCS: 70491; Q9967

== ENCOUNTER → 2022-09-27 | Outpatient (CLI) | payer MEDICARE ==
[~2022-09-27] MED LIST changes: -ISOVUE-370 76% 100ML VIAL As Ordered ONE
== END ==
LOC: M RAD 10:51
PROVIDERS: ATTEND Physician Assistant Surgical
DX: M47.896 Other spondylosis, lumbar region (principal)

== ENCOUNTER 2023-04-10 08:17 | Emergency (ER) | payer MEDICARE ==
[~2023-04-10] VITALS: Ht 162.6 cm; Wt 76.8 kg
[~2023-04-10 08:17] MED LIST changes: +CYAN-1 PO; -CYAN100050 PO; -GABA-283 PO; +GABA-284 PO
[2023-04-10] MEDS ORDERED: CYCLOBENZAPRINE 5MG TABLET PO ONE (08:45)
[2023-04-10] MEDS ORDERED: FURO20TA2 PO (08:56)
[2023-04-10] MEDS ORDERED: POTA10CA60 PO (08:56)
[2023-04-10] MEDS ORDERED: SERT25TA85 PO (08:56)
[2023-04-10] MEDS ORDERED: GABA-1171 PO (08:56)
[2023-04-10] MEDS ORDERED: KETOROLAC 30 MG/ML 1ML VIAL IV ONE (09:05)
[2023-04-10 09:21] LABS: INR 1.07; PROTHROMBIN TIME 13.6 SECONDS (12.5-14.5)
[2023-04-10 09:28] LABS: PARTIAL THROMBOPLASTIN TIME 23.4 SECONDS (24.8-34.2)
[2023-04-10] MEDS ORDERED: MORPHINE 2 MG/ML 1ML VIAL IV ONE ×2 (10:00→13:15)
[2023-04-10 17:15] VITALS: BP 150/75; TEMP 99; O2SAT 95
== END 2023-04-10 17:17 | disposition short-term general hospital (02) ==
LOC: EDBD 08:17 → M ED 08:17
DX: S32.050A Wedge compression fracture of fifth lumbar vertebra, initial encounter for closed fracture (principal); M25.552 Pain in left hip; E11.9 Type 2 diabetes mellitus without complications; I10 Essential (primary) hypertension; M54.30 Sciatica, unspecified side; F41.9 Anxiety disorder, unspecified; M85.80 Other specified disorders of bone density and structure, unspecified site; Z79.82 Long term (current) use of aspirin; Z79.891 Long term (current) use of opiate analgesic; Z79.811 Long term (current) use of aromatase inhibitors; Z79.4 Long term (current) use of insulin; Z79.899 Other long term (current) drug therapy
CPT/HCPCS: 72110; 72131; 76857; 80047; 85610; 85730; 87635; 93970; 96374; 96375; 99285; J1885

== ENCOUNTER → 2023-04-24 | Outpatient (REF) ==
[~2023-04-24] MED LIST changes: +FURO20TA2 PO; +POTA10CA60 PO; +SERT25TA85 PO
[2023-04-24 11:23] LABS: HEMATOCRIT 37.5 % (36.0-47.0); HEMOGLOBIN 11.5 g/dl (12.0-15.5); MEAN CORPUSCULAR HEMOGLOBIN 32.5 pg (27.0-33.0); MEAN CORPUSCULAR HGB CONC 30.7 g/dl (32.0-36.5); MEAN CORPUSCULAR VOLUME 105.9 fl (80.0-96.0); PLATELET COUNT, AUTOMATED 428 10^3/uL (150-450); RED BLOOD COUNT 3.54 10^6/uL (4.00-5.40); WHITE BLOOD COUNT 10.5 10^3/uL (4.0-10.0)
[2023-04-24 12:04] LABS: CALCIUM LEVEL 8.8 MG/DL (8.3-10.6); CREATININE FOR GFR 1.05 MG/DL (0.55-1.30); GLOMERULAR FILTRATION RATE 52.8 (>32); POTASSIUM SERUM 3.3 MMOL/L (3.5-5.1)
== END ==
PROVIDERS: ATTEND Physician Assistant
DX: I10 Essential (primary) hypertension (principal)

== ENCOUNTER → 2023-05-01 | Outpatient (REF) ==
[2023-05-01 10:09] LABS: HEMATOCRIT 36.2 % (36.0-47.0); HEMOGLOBIN 11.2 g/dl (12.0-15.5); MEAN CORPUSCULAR HEMOGLOBIN 32.2 pg (27.0-33.0); MEAN CORPUSCULAR HGB CONC 30.9 g/dl (32.0-36.5); PLATELET COUNT, AUTOMATED 333 10^3/uL (150-450); RED BLOOD COUNT 3.48 10^6/uL (4.00-5.40); WHITE BLOOD COUNT 9.4 10^3/uL (4.0-10.0)
[2023-05-01 10:33] LABS: BLOOD UREA NITROGEN 18 MG/DL (9-23); CARBON DIOXIDE LEVEL 26 MMOL/L (20-31); CHLORIDE LEVEL 108 MMOL/L (98-107); CREATININE FOR GFR 0.81 MG/DL (0.55-1.30); GLOMERULAR FILTRATION RATE > 60.0 (>32); GLUCOSE, FASTING 103 MG/DL (74-106); POTASSIUM SERUM 4.3 MMOL/L (3.5-5.1); SODIUM LEVEL 144 MMOL/L (136-145)
== END ==
PROVIDERS: ATTEND Physician Assistant
DX: I10 Essential (primary) hypertension (principal)

== ENCOUNTER → 2023-05-09 | Outpatient (REF) | payer MEDICARE ==
[2023-05-09 17:32] LABS: HEMATOCRIT 35.6 % (36.0-47.0); HEMOGLOBIN 11.2 g/dl (12.0-15.5); MEAN CORPUSCULAR HEMOGLOBIN 32.4 pg (27.0-33.0); MEAN CORPUSCULAR HGB CONC 31.5 g/dl (32.0-36.5); MEAN CORPUSCULAR VOLUME 102.9 fl (80.0-96.0); PLATELET COUNT, AUTOMATED 275 10^3/uL (150-450); RED BLOOD COUNT 3.46 10^6/uL (4.00-5.40); WHITE BLOOD COUNT 10.7 10^3/uL (4.0-10.0)
[2023-05-09 18:05] LABS: BLOOD UREA NITROGEN 15 MG/DL (9-23); CALCIUM LEVEL 8.6 MG/DL (8.3-10.6); CARBON DIOXIDE LEVEL 25 MMOL/L (20-31); CHLORIDE LEVEL 103 MMOL/L (98-107); CREATININE FOR GFR 0.81 MG/DL (0.55-1.30); GLOMERULAR FILTRATION RATE > 60.0 (>32); GLUCOSE, FASTING 150 MG/DL (74-106); POTASSIUM SERUM 4.5 MMOL/L (3.5-5.1); SODIUM LEVEL 140 MMOL/L (136-145)
== END ==
PROVIDERS: ATTEND Physician Assistant
DX: R60.9 Edema, unspecified (principal); K44.9 Diaphragmatic hernia without obstruction or gangrene; I50.30 Unspecified diastolic (congestive) heart failure

== ENCOUNTER → 2023-05-09 | Outpatient (REF) | payer MEDICARE | PROVIDERS: ATTEND Internal Medicine | DX: R05.9 Cough, unspecified (principal); K44.9 Diaphragmatic hernia without obstruction or gangrene ==

== ENCOUNTER → 2023-05-10 | Outpatient (REF) | payer MEDICARE ==
[2023-05-10 11:42] LABS: HEMATOCRIT 35.9 % (36.0-47.0); MEAN CORPUSCULAR HEMOGLOBIN 32.4 pg (27.0-33.0); MEAN CORPUSCULAR HGB CONC 30.6 g/dl (32.0-36.5); MEAN CORPUSCULAR VOLUME 105.9 fl (80.0-96.0); PLATELET COUNT, AUTOMATED 286 10^3/uL (150-450); RED BLOOD COUNT 3.39 10^6/uL (4.00-5.40); WHITE BLOOD COUNT 8.3 10^3/uL (4.0-10.0)
[2023-05-10 12:12] LABS: BLOOD UREA NITROGEN 13 MG/DL (9-23); CARBON DIOXIDE LEVEL 30 MMOL/L (20-31); CHLORIDE LEVEL 105 MMOL/L (98-107); CREATININE FOR GFR 0.81 MG/DL (0.55-1.30); GLOMERULAR FILTRATION RATE > 60.0 (>32); GLUCOSE, FASTING 106 MG/DL (74-106); POTASSIUM SERUM 4.2 MMOL/L (3.5-5.1); SODIUM LEVEL 144 MMOL/L (136-145)
== END ==
PROVIDERS: ATTEND Internal Medicine
DX: I10 Essential (primary) hypertension (principal)

== ENCOUNTER → 2023-05-22 | Outpatient (CLI) | payer MEDICARE | LOC: M WUC 12:23 | PROVIDERS: ATTEND Internal Medicine | DX: M25.551 Pain in right hip (principal); D50.9 Iron deficiency anemia, unspecified; Z96.641 Presence of right artificial hip joint ==

== ENCOUNTER → 2023-05-22 | Outpatient (REF) | payer MEDICARE ==
[2023-05-22 18:47] LABS: PERCENT SATURATION 14.4 % (13.2-45.0)
[2023-05-22 18:49] LABS: FERRITIN 21.4 NG/ML (7.3-270.7)
== END ==
LOC: M LAB REF 17:09
PROVIDERS: ATTEND Internal Medicine
DX: D50.9 Iron deficiency anemia, unspecified (principal)

== ENCOUNTER → 2023-10-13 | Outpatient (REF) | payer MEDICARE ==
[~2023-10-13] MED LIST changes: -ASPI-161 PO; +ASPI-615 PO; -POTA10CA60 PO; +POTA10CA70 PO
[2023-10-13 18:17] LABS: C REACTIVE PROTEIN QUANTITATIV < 0.40 MG/DL (<1.0)
[2023-10-13 18:18] LABS: FERRITIN 24.6 NG/ML (7.3-270.7); IRON (FE) 52 UG/DL (50-170)
[2023-10-13 18:19] LABS: PERCENT SATURATION 16.5 % (13.2-45.0); TOTAL IRON BINDING CAPACITY 315 UG/DL (250-425)
== END ==
LOC: M LAB REF 17:16
PROVIDERS: ATTEND Internal Medicine
DX: D50.9 Iron deficiency anemia, unspecified (principal); M35.3 Polymyalgia rheumatica

== ENCOUNTER 2024-01-14 17:28 | Emergency (ER) | payer MEDICARE ==
[~2024-01-14] VITALS: Ht 162.6 cm; Wt 74.0 kg
[2024-01-14] MEDS: methocarbamoL 750 MG TAB PO ONE (20:14)
[2024-01-14] MEDS: KETOROLAC 30 MG/ML 1ML VIAL IV ONE (20:15)
[2024-01-14 20:39] LABS: BASO # 0.1 10^3/uL (0.0-0.2); BASO % 0.4 % (0.0-1.0); EOS # 0.2 10^3/uL (0.0-0.5); EOS % 1.8 % (0.0-3.0); HEMATOCRIT 39.9 % (36.0-47.0); HEMOGLOBIN 12.3 g/dl (12.0-15.5); LYMPH # 2.3 10^3/uL (1.5-5.0); LYMPH % 20.1 % (24.0-44.0); MEAN CORPUSCULAR HEMOGLOBIN 32.3 pg (27.0-33.0); MEAN CORPUSCULAR HGB CONC 30.8 g/dl (32.0-36.5); MEAN CORPUSCULAR VOLUME 104.7 fl (80.0-96.0); MONO # 0.9 10^3/uL (0.0-0.8); MONO % 7.8 % (2.0-8.0); NEUTROPHILS # 7.9 10^3/uL (1.5-8.5); NEUTROPHILS % 69.4 % (36.0-66.0); PLATELET COUNT, AUTOMATED 256 10^3/uL (150-450); RED BLOOD COUNT 3.81 10^6/uL (4.00-5.40); WHITE BLOOD COUNT 11.4 10^3/uL (4.0-10.0)
[2024-01-14 20:52] LABS: BLOOD UREA NITROGEN 14 MG/DL (9-23); CALCIUM LEVEL 9.3 MG/DL (8.3-10.6); CARBON DIOXIDE LEVEL 32 MMOL/L (20-31); CHLORIDE LEVEL 109 MMOL/L (98-107); GLOMERULAR FILTRATION RATE > 60.0 (>32); GLUCOSE, FASTING 97 MG/DL (74-106); POTASSIUM SERUM 4.4 MMOL/L (3.5-5.1); SODIUM LEVEL 143 MMOL/L (136-145)
[2024-01-14] MEDS: predniSONE 20 MG TAB PO ONE (21:33)
[2024-01-14] MEDS ORDERED: METH-1165 PO (21:51)
[2024-01-14] MEDS ORDERED: PRED20TA PO (21:51)
[2024-01-14 22:02] VITALS: BP 143/77; TEMP 96.9; O2SAT 94
== END 2024-01-14 22:25 | disposition home or self-care (01) ==
LOC: M ED 17:28
DX: M54.41 Lumbago with sciatica, right side (principal); M25.70 Osteophyte, unspecified joint; M51.36 Other intervertebral disc degeneration, lumbar region; M85.88 Other specified disorders of bone density and structure, other site; E11.9 Type 2 diabetes mellitus without complications; I10 Essential (primary) hypertension; K21.9 Gastro-esophageal reflux disease without esophagitis; E03.9 Hypothyroidism, unspecified; Z79.82 Long term (current) use of aspirin; Z79.811 Long term (current) use of aromatase inhibitors; Z79.52 Long term (current) use of systemic steroids; Z79.899 Other long term (current) drug therapy
CPT/HCPCS: 72110; 72131; 80048; 85025; 96374; 99284; J1885; J7512

== ENCOUNTER 2024-01-18 10:40 | Emergency (ER) | payer MEDICARE ==
[~2024-01-18] VITALS: Ht 162.6 cm; Wt 62.5 kg
[~2024-01-18 10:40] MED LIST changes: +METH-1165 PO; +PRED20TA PO
[2024-01-18] MEDS ORDERED: LEVOTAB10 PO (10:55)
[2024-01-18 13:55] LABS: BASO % 0.1 % (0.0-1.0); HEMATOCRIT 37.3 % (36.0-47.0); HEMOGLOBIN 11.6 g/dl (12.0-15.5); LYMPH # 2.1 10^3/uL (1.5-5.0); LYMPH % 20.8 % (24.0-44.0); MEAN CORPUSCULAR HEMOGLOBIN 32.1 pg (27.0-33.0); MEAN CORPUSCULAR HGB CONC 31.1 g/dl (32.0-36.5); MEAN CORPUSCULAR VOLUME 103.3 fl (80.0-96.0); MONO # 0.8 10^3/uL (0.0-0.8); MONO % 8.2 % (2.0-8.0); NEUTROPHILS # 7.1 10^3/uL (1.5-8.5); NEUTROPHILS % 70.2 % (36.0-66.0); PLATELET COUNT, AUTOMATED 274 10^3/uL (150-450); RED BLOOD COUNT 3.61 10^6/uL (4.00-5.40); WHITE BLOOD COUNT 10.2 10^3/uL (4.0-10.0)
[2024-01-18 14:03] LABS: ERYTHROCYTE SEDIMENTATION RATE 26 mm/hr (0-30)
[2024-01-18 14:17] LABS: C REACTIVE PROTEIN QUANTITATIV 0.6 MG/DL (<1.0)
[2024-01-18 14:18] LABS: ALBUMIN 3.2 G/DL (3.2-5.2); BILIRUBIN,DIRECT 0.2 MG/DL (<0.4); BILIRUBIN,TOTAL 0.6 MG/DL (0.3-1.2); CALCIUM LEVEL 9.4 MG/DL (8.3-10.6); CREATININE FOR GFR 0.96 MG/DL (0.55-1.30); GLOMERULAR FILTRATION RATE 58.4 (>32); POTASSIUM SERUM 4.1 MMOL/L (3.5-5.1); TOTAL PROTEIN 6.1 G/DL (5.7-8.2)
[2024-01-18] MEDS: ULTRACET TAB PO STA (15:27)
[2024-01-18] MEDS ORDERED: HYDR-3713 PO (17:27)
[2024-01-18] MEDS: MOM 30ML SUSPENSION UDC PO ONE (19:15)
[2024-01-18] MEDS ORDERED: [UNRECOGNIZED DRUG - CODE] EX (20:47)
[2024-01-18] MEDS ORDERED: LIDO1CRE2 TOP (20:47)
[2024-01-18] MEDS ORDERED: COLA100C5 PO (20:49)
[2024-01-18] MEDS: OXYCODONE/APAP 5MG/325MG(HOME DOSE PACK) PO ONE (21:39)
[2024-01-18 22:33] VITALS: BP 148/78; TEMP 97.7; O2SAT 95
== END 2024-01-18 22:31 | disposition home or self-care (01) ==
LOC: M ED 10:40
DX: S32.030A Wedge compression fracture of third lumbar vertebra, initial encounter for closed fracture (principal); S32.050A Wedge compression fracture of fifth lumbar vertebra, initial encounter for closed fracture; K59.00 Constipation, unspecified; M48.061 Spinal stenosis, lumbar region without neurogenic claudication; G95.81 Conus medullaris syndrome; M51.36 Other intervertebral disc degeneration, lumbar region; E11.9 Type 2 diabetes mellitus without complications; I10 Essential (primary) hypertension; K21.9 Gastro-esophageal reflux disease without esophagitis; E03.9 Hypothyroidism, unspecified; Z79.82 Long term (current) use of aspirin; Z79.811 Long term (current) use of aromatase inhibitors; Z79.4 Long term (current) use of insulin; Z79.52 Long term (current) use of systemic steroids; Z79.899 Other long term (current) drug therapy; Y92.9 Unspecified place or not applicable; Y93.89 Activity, other specified; Y99.9 Unspecified external cause status

== ENCOUNTER 2024-01-22 08:23 | Inpatient (IN) | payer MEDICARE ==
[~2024-01-22] VITALS: Ht 162.6 cm; Wt 26.3 kg
[~2024-01-22 08:23] MED LIST changes: +COLA100C5 PO; +HYDR-3713 PO; +LEVOTAB10 PO; +LIDO1CRE2 TOP; +[UNRECOGNIZED DRUG - CODE] EX
[2024-01-22] MEDS ORDERED: HYDR-3713 (08:48)
[2024-01-22] MEDS: ASPIRIN 81MG ENTERIC TABLET PO SCH (09:00)
[2024-01-22] MEDS: dexAMETHasone 20MG/5ML VIAL IV SCH (09:00)
[2024-01-22] MEDS: FUROSEMIDE 20 MG TAB PO SCH (09:00)
[2024-01-22] MEDS: LEVOTHYROXINE 50MCG TABLET (0.05MG) PO SCH (09:00)
[2024-01-22] MEDS: ACETAMINOPHEN 500 MG TAB PO SCH (09:00)
[2024-01-22] MEDS: GABAPENTIN 100 MG CAP PO SCH ×2 (09:00→21:16)
[2024-01-22] MEDS: POTASSIUM CHLORIDE 10MEQ SR TABLET PO SCH (09:00)
[2024-01-22] MEDS: MELOXICAM (MOBIC) 7.5 MG TAB PO SCH ×2 (09:00→21:12)
[2024-01-22] MEDS: VITAMIN D 1,000 INTERNATIONAL UNITS TABLET PO SCH (09:00)
[2024-01-22] MEDS: ACETAMINOPHEN TAB 650MG DOSE (2X325MG) PO ONE (09:29)
[2024-01-22 10:29] LABS: BASO % 0.3 % (0.0-1.0); EOS % 0.4 % (0.0-3.0); HEMATOCRIT 43.6 % (36.0-47.0); HEMOGLOBIN 13.6 g/dl (12.0-15.5); LYMPH # 1.1 10^3/uL (1.5-5.0); LYMPH % 9.9 % (24.0-44.0); MEAN CORPUSCULAR HEMOGLOBIN 32.5 pg (27.0-33.0); MEAN CORPUSCULAR HGB CONC 31.2 g/dl (32.0-36.5); MEAN CORPUSCULAR VOLUME 104.1 fl (80.0-96.0); MONO % 9.1 % (2.0-8.0); NEUTROPHILS % 79.5 % (36.0-66.0); PLATELET COUNT, AUTOMATED 286 10^3/uL (150-450); RED BLOOD COUNT 4.19 10^6/uL (4.00-5.40); WHITE BLOOD COUNT 11.3 10^3/uL (4.0-10.0)
[2024-01-22 11:03] LABS: CPK CREATINE PHOSPHOKINASE 127 U/L (34-145)
[2024-01-22 11:41] LABS: BLOOD UREA NITROGEN 14 MG/DL (9-23); CALCIUM LEVEL 7.6 MG/DL (8.3-10.6); CARBON DIOXIDE LEVEL 28 MMOL/L (20-31); CHLORIDE LEVEL 109 MMOL/L (98-107); CREATININE FOR GFR 0.75 MG/DL (0.55-1.30); GLOMERULAR FILTRATION RATE > 60.0 (>32); GLUCOSE, FASTING 85 MG/DL (74-106); POTASSIUM SERUM 3.3 MMOL/L (3.5-5.1); SODIUM LEVEL 142 MMOL/L (136-145); THYROID STIMULATING HORMONE 1.015 uIU/ML (0.55-4.78)
[2024-01-22] MEDS: INSULIN LISPRO (NovoLOG) PER UNIT SC SCH ×2 (12:00→21:00)
[2024-01-22] MEDS ORDERED: GLUCAGON INJ 1MG VIAL SC PRN (12:55)
[2024-01-22] MEDS ORDERED: DEXTROSE 50% 50ML SYRINGE IV PRN (12:55)
[2024-01-22] MEDS ORDERED: GLUCOSE 4 GM CHEW PO PRN (12:55)
[2024-01-22] MEDS ORDERED: NYSTATIN 100,000 UNITS/GM TOPICAL PWD 15GM TOP PRN (12:55)
[2024-01-22] MEDS ORDERED: NYAM10003 TOP (13:17)
[2024-01-22] MEDS ORDERED: LIDO1CRE2 TOP (13:17)
[2024-01-22] MEDS ORDERED: LOSA25TA13 PO (13:17)
[2024-01-22] MEDS ORDERED: APAP500T10 PO (13:18)
[2024-01-22] MEDS ORDERED: HOME MED LIST COMPLETE! XX SCH (13:20)
[2024-01-22 14:28] LABS: MAGNESIUM LEVEL 1.4 MG/DL (1.8-2.4)
[2024-01-22] MEDS: POTASSIUM CHLORIDE 10MEQ SR TABLET PO ONE (14:34)
[2024-01-22] MEDS: LIDOCAINE 5% (LIDODERM) PATCH TD ONE (14:35)
[2024-01-22] MEDS: dexAMETHasone 20MG/5ML VIAL IV ONE (14:35)
[2024-01-22 14:41] LABS: PROCALCITONIN 0.09 ng/ml
[2024-01-22 15:05] VITALS: BP 150/74; TEMP 97; O2SAT 92
[2024-01-22] MEDS: REMDESIVIR 200 MG in NS 250 ML IV ONE (15:37)
[2024-01-22 20:00] VITALS: BP 148/74; TEMP 97; O2SAT 95
[2024-01-22] MEDS: SERTRALINE HCL 25 MG TABLET PO SCH (21:12)
[2024-01-22] MEDS: MONTELUKAST 10 MG TAB PO SCH (21:12)
[2024-01-22] MEDS: LOSARTAN 25 MG TAB PO SCH (21:13)
[2024-01-23] VITALS (7 sets, daily range): BP systolic 127–151; BP diastolic 68–86; TEMP 97–97.3; O2SAT 90–95
[2024-01-23 06:35] LABS: HEMATOCRIT 39.3 % (36.0-47.0); HEMOGLOBIN 12.3 g/dl (12.0-15.5); MEAN CORPUSCULAR HEMOGLOBIN 32.7 pg (27.0-33.0); MEAN CORPUSCULAR HGB CONC 31.3 g/dl (32.0-36.5); MEAN CORPUSCULAR VOLUME 104.5 fl (80.0-96.0); PLATELET COUNT, AUTOMATED 267 10^3/uL (150-450); RED BLOOD COUNT 3.76 10^6/uL (4.00-5.40); WHITE BLOOD COUNT 9.8 10^3/uL (4.0-10.0)
[2024-01-23 07:31] LABS: BLOOD UREA NITROGEN 19 MG/DL (9-23); CALCIUM LEVEL 8.9 MG/DL (8.3-10.6); CARBON DIOXIDE LEVEL 29 MMOL/L (20-31); CHLORIDE LEVEL 109 MMOL/L (98-107); CREATININE FOR GFR 0.79 MG/DL (0.55-1.30); GLOMERULAR FILTRATION RATE > 60.0 (>32); GLUCOSE, FASTING 127 MG/DL (74-106); MAGNESIUM LEVEL 1.9 MG/DL (1.8-2.4); POTASSIUM SERUM 4.8 MMOL/L (3.5-5.1); SODIUM LEVEL 143 MMOL/L (136-145)
[2024-01-23] MEDS: MAG SULF 1GM/100ML (MAG RUN) 1 GM in IV 1 EA IV SCH (07:58)
[2024-01-23] MEDS: PANTOPRAZOLE 40MG TAB (PROTONIX) PO SCH (07:59)
[2024-01-23] MEDS: ENOXAPARIN 40MG/0.4ML SYRINGE (J1650 PER 10MG) SC SCH (07:59)
[2024-01-23] MEDS: PERCOCET 5MG/325MG TAB PO ONE (08:24)
[2024-01-23] MEDS: REMDESIVIR 100 MG in NS 250 ML IV SCH (15:03)
[2024-01-23] MEDS: PERCOCET 5MG/325MG TAB PO PRN (21:50)
[2024-01-24 04:00] VITALS: BP 122/70; TEMP 97.5; O2SAT 96
[2024-01-24] MEDS: LEVOTHYROXINE 50MCG TABLET (0.05MG) PO SCH (06:00)
[2024-01-24] MEDS: LEVALBUTEROL HFA 45MCG/ACT 15GM INHALER INH SCH (08:00)
[2024-01-24] MEDS: MIRALAX *UNIT DOSE* 17GM PACKET PO SCH (09:20)
[2024-01-24] MEDS: METOPROLOL SUCC *XL* 12.5MG PER 1/2 TAB (TopROL *XL*) PO SCH (09:20)
[2024-01-24] MEDS: SENOKOT S TAB PO PRN (09:20)
[2024-01-24 12:26] VITALS: BP 127/69; TEMP 97.5; O2SAT 94
[2024-01-24 20:10] VITALS: BP 118/66; TEMP 97.2; O2SAT 94
[2024-01-25 03:55] VITALS: BP 117/64; TEMP 97.7; O2SAT 96
[2024-01-25 06:00] LABS: HEMATOCRIT 34.1 % (36.0-47.0); HEMOGLOBIN 10.5 g/dl (12.0-15.5); MEAN CORPUSCULAR HEMOGLOBIN 32.2 pg (27.0-33.0); MEAN CORPUSCULAR HGB CONC 30.8 g/dl (32.0-36.5); MEAN CORPUSCULAR VOLUME 104.6 fl (80.0-96.0); PLATELET COUNT, AUTOMATED 269 10^3/uL (150-450); RED BLOOD COUNT 3.26 10^6/uL (4.00-5.40); WHITE BLOOD COUNT 9.6 10^3/uL (4.0-10.0)
[2024-01-25] MEDS: ONDANSETRON 4MG 2ML VIAL IV PRN (08:52)
[2024-01-25 09:33] VITALS: O2SAT 91
[2024-01-25 12:27] VITALS: BP 130/69; TEMP 97.7; O2SAT 94
[2024-01-25] MEDS: MECLIZINE 12.5 MG TAB PO ONE (21:40)
[2024-01-25 21:53] VITALS: BP 121/67; TEMP 96.6; TEMP 97.9; O2SAT 94
[2024-01-26 02:19] VITALS: O2SAT 95
[2024-01-26 04:21] VITALS: BP 123/66; TEMP 97.9; O2SAT 96
[2024-01-26] MEDS: GABAPENTIN 100 MG CAP PO SCH (08:45)
[2024-01-26] MEDS: BENZONATATE 100MG CAPSULE PO SCH (08:46)
[2024-01-26 10:12] VITALS: O2SAT 96
[2024-01-26 12:00] VITALS: BP 125/91; TEMP 97.7; O2SAT 94
[2024-01-26] MEDS: MECLIZINE 12.5 MG TAB PO PRN (15:30)
[2024-01-26 20:00] VITALS: BP 116/62; TEMP 97.7; O2SAT 93
[2024-01-26 21:00] VITALS: O2SAT 96
[2024-01-27 04:00] VITALS: BP 154/69; TEMP 96.8; O2SAT 96
[2024-01-27 11:05] VITALS: O2SAT 93
[2024-01-27 12:00] VITALS: BP 108/62; TEMP 97.3; O2SAT 91
[2024-01-27 20:00] VITALS: BP 161/81; TEMP 97.3; O2SAT 95
[2024-01-27 21:00] VITALS: O2SAT 95
[2024-01-27 22:00] VITALS: O2SAT 94
[2024-01-28 04:00] VITALS: BP 123/68; TEMP 97; O2SAT 92
[2024-01-28 06:32] LABS: HEMATOCRIT 32.8 % (36.0-47.0); HEMOGLOBIN 10.2 g/dl (12.0-15.5); MEAN CORPUSCULAR HEMOGLOBIN 32.1 pg (27.0-33.0); MEAN CORPUSCULAR HGB CONC 31.1 g/dl (32.0-36.5); MEAN CORPUSCULAR VOLUME 103.1 fl (80.0-96.0); PLATELET COUNT, AUTOMATED 272 10^3/uL (150-450); RED BLOOD COUNT 3.18 10^6/uL (4.00-5.40); WHITE BLOOD COUNT 20.8 10^3/uL (4.0-10.0)
[2024-01-28] MEDS: predniSONE 10MG TAB PO SCH (08:43)
[2024-01-28 08:48] LABS: IONIZED CALCIUM 4.6 MG/DL (4.5-5.3)
[2024-01-28 09:33] LABS: CALCIUM LEVEL 8.8 MG/DL (8.3-10.6); GLOMERULAR FILTRATION RATE 55.7 (>32); MAGNESIUM LEVEL 1.8 MG/DL (1.8-2.4); POTASSIUM SERUM 4.5 MMOL/L (3.5-5.1)
[2024-01-28 09:39] LABS: PROCALCITONIN 0.82 ng/ml
[2024-01-28 12:00] VITALS: BP 117/63; TEMP 97.7; O2SAT 94
[2024-01-28] MEDS ORDERED: AZIT-12 PO (14:08)
[2024-01-28] MEDS ORDERED: CEFD300CAP PO (14:08)
[2024-01-28] MEDS: AZITHROMYCIN 250MG TABLET PO ONE (14:37)
[2024-01-28] MEDS: CEFDINIR 300 MG CAP (OMNICEF) PO SCH (14:37)
[2024-01-28 14:42] LABS: ERYTHROCYTE SEDIMENTATION RATE 8 mm/hr (0-30)
[2024-01-28 14:44] LABS: C REACTIVE PROTEIN QUANTITATIV 2.4 MG/DL (<1.0)
[2024-01-28 19:41] VITALS: BP 130/66; TEMP 97.3; O2SAT 95
[2024-01-28 20:00] VITALS: O2SAT 94
[2024-01-28 22:00] VITALS: O2SAT 95
[2024-01-29 03:42] VITALS: BP 132/68; TEMP 97.2; O2SAT 97
[2024-01-29 09:17] VITALS: O2SAT 95
[2024-01-29] MEDS ORDERED: MUCI1TAB16 PO (09:17)
[2024-01-29] MEDS: AZITHROMYCIN 250MG TABLET PO SCH (09:19)
[2024-01-29 09:22] VITALS: BP 120/50
[2024-01-29] MEDS: CETIRIZINE (ZyrTEC) 10 MG TAB PO ONE (09:28)
[2024-01-29] MEDS: guaiFENesin ER TABLET 600 MG TAB PO SCH (09:28)
[2024-01-29 09:32] LABS: BASO % 0.1 % (0.0-1.0); HEMATOCRIT 34.3 % (36.0-47.0); HEMOGLOBIN 10.7 g/dl (12.0-15.5); LYMPH # 1.1 10^3/uL (1.5-5.0); LYMPH % 5.5 % (24.0-44.0); MEAN CORPUSCULAR HEMOGLOBIN 32.5 pg (27.0-33.0); MEAN CORPUSCULAR HGB CONC 31.2 g/dl (32.0-36.5); MEAN CORPUSCULAR VOLUME 104.3 fl (80.0-96.0); MONO # 0.5 10^3/uL (0.0-0.8); MONO % 2.7 % (2.0-8.0); NEUTROPHILS % 90.7 % (36.0-66.0); PLATELET COUNT, AUTOMATED 310 10^3/uL (150-450); RED BLOOD COUNT 3.29 10^6/uL (4.00-5.40); WHITE BLOOD COUNT 19.9 10^3/uL (4.0-10.0)
[2024-01-29 09:38] LABS: ERYTHROCYTE SEDIMENTATION RATE 31 mm/hr (0-30)
[2024-01-29 09:53] LABS: C REACTIVE PROTEIN QUANTITATIV 7.4 MG/DL (<1.0)
[2024-01-29 09:54] LABS: CREATININE FOR GFR 1.08 MG/DL (0.55-1.30); POTASSIUM SERUM 4.6 MMOL/L (3.5-5.1)
[2024-01-29 10:06] LABS: PROCALCITONIN 0.88 ng/ml
[2024-01-29] MEDS ORDERED: CEFD300CAP PO (11:48)
[2024-01-29 12:00] VITALS: BP 120/63; TEMP 97.7; O2SAT 98
[2024-01-30] MEDS ORDERED: CETIRIZINE (ZyrTEC) 10 MG TAB PO SCH (09:00)
== END 2024-01-29 16:35 | disposition home health service (06) | DRG 177 ==
LOC: EDBD 08:23 → M ED 08:23 → M ED INP 08:25 → OBSVTOIN 12:36 → M MSPAV 15:05
PROVIDERS: ADMIT Internal Medicine; ATTEND General Practice
DX: U07.1 COVID-19 (principal); J96.01 Acute respiratory failure with hypoxia; J15.9 Unspecified bacterial pneumonia; J12.82 Pneumonia due to coronavirus disease 2019; E03.9 Hypothyroidism, unspecified; E11.65 Type 2 diabetes mellitus with hyperglycemia; I10 Essential (primary) hypertension; E87.6 Hypokalemia; K21.9 Gastro-esophageal reflux disease without esophagitis; E55.9 Vitamin D deficiency, unspecified; G47.33 Obstructive sleep apnea (adult) (pediatric); M35.3 Polymyalgia rheumatica; E11.40 Type 2 diabetes mellitus with diabetic neuropathy, unspecified; Z88.5 Allergy status to narcotic agent; Z79.899 Other long term (current) drug therapy; Z79.82 Long term (current) use of aspirin; D72.829 Elevated white blood cell count, unspecified; F39 Unspecified mood [affective] disorder; Z79.52 Long term (current) use of systemic steroids; R00.0 Tachycardia, unspecified; M54.59 Other low back pain

== ENCOUNTER 2024-01-31 10:18 | Observation (INO) | payer MEDICARE ==
[~2024-01-31] VITALS: Ht 162.6 cm; Wt 79.1 kg
[~2024-01-31 10:18] MED LIST changes: +APAP500T10 PO; +AZIT-12 PO; +CEFD300CAP PO; +HYDR-3713; +LOSA25TA13 PO; +MUCI1TAB16 PO; +NYAM10003 TOP
[2024-01-31 11:02] LABS: ABG HCO3 22.6 MMOL/L (22.0-26.0); ABG O2 SATURATION 96.9 % (95.0-99.0); ABG PARTIAL PRESSURE CO2 33.2 mmHg (35.0-45.0); ABG PARTIAL PRESSURE O2 91.9 mmHg (75.0-100.0); ABG STANDARD HCO3 23.6 MMOL/L. (22.0-26.0); ABG TOTAL CO2 23.6 MMOL/L (23.0-31.0)
[2024-01-31] MEDS: NS 500 ML IV ONE (11:07)
[2024-01-31 11:12] LABS: BASO % 0.1 % (0.0-1.0); EOS % 0.1 % (0.0-3.0); HEMOGLOBIN 9.2 g/dl (12.0-15.5); LYMPH # 0.6 10^3/uL (1.5-5.0); LYMPH % 4.2 % (24.0-44.0); MEAN CORPUSCULAR HEMOGLOBIN 31.7 pg (27.0-33.0); MEAN CORPUSCULAR HGB CONC 30.7 g/dl (32.0-36.5); MEAN CORPUSCULAR VOLUME 103.4 fl (80.0-96.0); MONO # 0.6 10^3/uL (0.0-0.8); NEUTROPHILS # 13.1 10^3/uL (1.5-8.5); NEUTROPHILS % 90.6 % (36.0-66.0); PLATELET COUNT, AUTOMATED 254 10^3/uL (150-450); WHITE BLOOD COUNT 14.4 10^3/uL (4.0-10.0)
[2024-01-31 11:33] LABS: C REACTIVE PROTEIN QUANTITATIV 11.7 MG/DL (<1.0)
[2024-01-31 11:35] LABS: ALBUMIN 2.3 G/DL (3.2-5.2); BILIRUBIN,DIRECT 0.3 MG/DL (<0.4); BILIRUBIN,TOTAL 0.8 MG/DL (0.3-1.2); CALCIUM LEVEL 8.2 MG/DL (8.3-10.6); CK-MB VALUE MASS 1.2 NG/ML (<3.6); CREATININE FOR GFR 1.09 MG/DL (0.55-1.30); GLOMERULAR FILTRATION RATE 50.4 (>32); POTASSIUM SERUM 4.6 MMOL/L (3.5-5.1); TOTAL PROTEIN 4.9 G/DL (5.7-8.2)
[2024-01-31 11:47] LABS: PROCALCITONIN 0.32 ng/ml
[2024-01-31 11:53] LABS: MB/CK RELATIVE INDEX 1.13 (< OR =4)
[2024-01-31] MEDS: NS 1,000 ML IV ONE (12:06)
[2024-01-31 13:23] LABS: APPEARANCE, URINE CLEAR (CLEAR); BACTERIA, URINE AUTO NEGATIVE (NEGATIVE); BILIRUBIN, URINE AUTO NEGATIVE (NEGATIVE); BLOOD, URINE BLOOD NEGATIVE (NEGATIVE); COLOR, URINE YELLOW (YELLOW); GLUCOSE, URINE (UA) AUTO NEGATIVE (NEGATIVE); KETONE, URINE AUTO NEGATIVE (NEGATIVE); LEUKOCYTE ESTERASE, URINE AUTO NEGATIVE (NEGATIVE); NITRITE, URINE AUTO NEGATIVE (NEGATIVE); PROTEIN, URINE AUTO NEGATIVE (NEGATIVE); RBC, URINE AUTO 1 /HPF (0-3); SPECIFIC GRAVITY URINE AUTO 1.012 (1.002-1.035); SQUAMOUS EPITHELIAL CELL UR AU 1 /HPF (0-6); UROBILINOGEN, URINE AUTO 0.2 mg/dL (0.0-2.0); WBC, URINE AUTO 1 /HPF (0-3)
[2024-01-31] MEDS ORDERED: AZIT-12 PO (13:57)
[2024-01-31] MEDS ORDERED: MUCI1TAB16 PO (13:58)
[2024-01-31] MEDS ORDERED: CEFD1CAP9 PO (13:58)
[2024-01-31] MEDS ORDERED: HOME MED LIST COMPLETE! XX SCH (14:00)
[2024-01-31] MEDS ORDERED: MAALOX 30 ML SUSP *UDC PO PRN (14:15)
[2024-01-31] MEDS ORDERED: DEXTROSE 50% 50ML SYRINGE IV PRN (14:15)
[2024-01-31] MEDS ORDERED: MOM 30ML SUSPENSION UDC PO PRN (14:15)
[2024-01-31] MEDS ORDERED: GLUCAGON INJ 1MG VIAL SC PRN (14:15)
[2024-01-31] MEDS ORDERED: GLUCOSE 4 GM CHEW PO PRN (14:15)
[2024-01-31 17:19] VITALS: BP 156/82; TEMP 97; O2SAT 96
[2024-01-31] MEDS: INSULIN LISPRO (NovoLOG) PER UNIT SC SCH ×2 (17:24→21:00)
[2024-01-31 20:59] VITALS: BP 121/74; TEMP 97.7; O2SAT 96
[2024-01-31] MEDS: HEPARIN SOD (PORCINE) 5000UNITS/ML 1ML VIAL/SYRINGE SC SCH (21:05)
[2024-01-31] MEDS: CEFDINIR 300 MG CAP (OMNICEF) PO SCH (21:05)
[2024-01-31] MEDS: guaiFENesin ER TABLET 600 MG TAB PO SCH (21:05)
[2024-02-01 04:59] VITALS: BP 196/102; TEMP 97.7; O2SAT 93
[2024-02-01 05:12] VITALS: BP 142/74
[2024-02-01] MEDS: LEVOTHYROXINE 50MCG TABLET (0.05MG) PO SCH (05:53)
[2024-02-01 07:04] LABS: BASO % 0.1 % (0.0-1.0); EOS # 0.1 10^3/uL (0.0-0.5); EOS % 0.6 % (0.0-3.0); HEMATOCRIT 32.1 % (36.0-47.0); HEMOGLOBIN 9.7 g/dl (12.0-15.5); LYMPH # 1.7 10^3/uL (1.5-5.0); LYMPH % 13.2 % (24.0-44.0); MEAN CORPUSCULAR HGB CONC 30.2 g/dl (32.0-36.5); MEAN CORPUSCULAR VOLUME 105.9 fl (80.0-96.0); MONO # 0.5 10^3/uL (0.0-0.8); MONO % 4.1 % (2.0-8.0); NEUTROPHILS # 10.3 10^3/uL (1.5-8.5); NEUTROPHILS % 80.9 % (36.0-66.0); PLATELET COUNT, AUTOMATED 238 10^3/uL (150-450); RED BLOOD COUNT 3.03 10^6/uL (4.00-5.40); WHITE BLOOD COUNT 12.7 10^3/uL (4.0-10.0)
[2024-02-01 07:17] LABS: BLOOD UREA NITROGEN 29 MG/DL (9-23); CALCIUM LEVEL 8.7 MG/DL (8.3-10.6); CARBON DIOXIDE LEVEL 25 MMOL/L (20-31); CHLORIDE LEVEL 113 MMOL/L (98-107); CREATININE FOR GFR 0.84 MG/DL (0.55-1.30); GLOMERULAR FILTRATION RATE > 60.0 (>32); GLUCOSE, FASTING 93 MG/DL (74-106); MAGNESIUM LEVEL 1.8 MG/DL (1.8-2.4); POTASSIUM SERUM 4.8 MMOL/L (3.5-5.1); SODIUM LEVEL 144 MMOL/L (136-145)
[2024-02-01] MEDS: VITAMIN D 1,000 INTERNATIONAL UNITS TABLET PO SCH (09:16)
[2024-02-01] MEDS: FUROSEMIDE 20 MG TAB PO SCH (09:17)
[2024-02-01] MEDS: predniSONE 2.5 MG TAB PO SCH (09:18)
[2024-02-01] MEDS: ASPIRIN 81MG ENTERIC TABLET PO SCH (09:20)
[2024-02-01] MEDS: predniSONE 5 MG TAB PO SCH (09:20)
[2024-02-01] MEDS: AZITHROMYCIN 250MG TABLET PO SCH (11:57)
[2024-02-01 13:00] VITALS: BP 142/82; TEMP 97.9; O2SAT 96
[2024-02-01 20:03] VITALS: BP 181/92; TEMP 98.2; O2SAT 95
[2024-02-01] MEDS: MONTELUKAST 10 MG TAB PO SCH (20:29)
[2024-02-01] MEDS: GABAPENTIN 100 MG CAP PO SCH (20:29)
[2024-02-01] MEDS: SERTRALINE HCL 25 MG TABLET PO SCH (20:30)
[2024-02-01] MEDS: LOSARTAN 25 MG TAB PO SCH (20:31)
[2024-02-02] MEDS: ACETAMINOPHEN TAB 650MG DOSE (2X325MG) PO PRN (02:55)
[2024-02-02 05:19] VITALS: BP 127/68; TEMP 97.9; O2SAT 99
[2024-02-02 06:42] LABS: BLOOD UREA NITROGEN 20 MG/DL (9-23); CALCIUM LEVEL 7.9 MG/DL (8.3-10.6); CARBON DIOXIDE LEVEL 28 MMOL/L (20-31); CHLORIDE LEVEL 107 MMOL/L (98-107); GLOMERULAR FILTRATION RATE > 60.0 (>32); GLUCOSE, FASTING 117 MG/DL (74-106); MAGNESIUM LEVEL 1.2 MG/DL (1.8-2.4); POTASSIUM SERUM 3.9 MMOL/L (3.5-5.1); SODIUM LEVEL 140 MMOL/L (136-145)
[2024-02-02] MEDS ORDERED: MAGN400T35 PO (07:58)
[2024-02-02] MEDS: MAGNESIUM OXIDE 400MG TAB (MAG-OX) PO ONE (08:51)
[2024-02-02 12:00] VITALS: BP 130/78; TEMP 97.2; O2SAT 93
[2024-02-02 19:57] VITALS: BP 133/74; TEMP 97.9; O2SAT 94
[2024-02-03 03:00] VITALS: BP 162/84; TEMP 98.4; O2SAT 93
[2024-02-03 07:18] LABS: BLOOD UREA NITROGEN 21 MG/DL (9-23); CALCIUM LEVEL 8.3 MG/DL (8.3-10.6); CARBON DIOXIDE LEVEL 29 MMOL/L (20-31); CHLORIDE LEVEL 108 MMOL/L (98-107); CREATININE FOR GFR 0.81 MG/DL (0.55-1.30); GLOMERULAR FILTRATION RATE > 60.0 (>32); GLUCOSE, FASTING 108 MG/DL (74-106); MAGNESIUM LEVEL 1.7 MG/DL (1.8-2.4); POTASSIUM SERUM 3.9 MMOL/L (3.5-5.1); SODIUM LEVEL 144 MMOL/L (136-145)
[2024-02-03] MEDS ORDERED: PILL CUTTER 1 EACH XX PRN (12:00)
[2024-02-03 13:51] VITALS: BP 162/84; TEMP 97.5; O2SAT 95
[2024-02-03 21:04] VITALS: BP 120/73; TEMP 98.2; O2SAT 94
[2024-02-04 04:00] VITALS: BP 160/84; TEMP 98.1; O2SAT 95
[2024-02-04 07:54] LABS: BASO % 0.2 % (0.0-1.0); EOS # 0.2 10^3/uL (0.0-0.5); EOS % 1.7 % (0.0-3.0); HEMOGLOBIN 9.3 g/dl (12.0-15.5); LYMPH # 1.8 10^3/uL (1.5-5.0); LYMPH % 14.7 % (24.0-44.0); MEAN CORPUSCULAR VOLUME 103.1 fl (80.0-96.0); MONO % 7.8 % (2.0-8.0); NEUTROPHILS # 9.1 10^3/uL (1.5-8.5); NEUTROPHILS % 74.5 % (36.0-66.0); PLATELET COUNT, AUTOMATED 262 10^3/uL (150-450); RED BLOOD COUNT 2.91 10^6/uL (4.00-5.40); WHITE BLOOD COUNT 12.3 10^3/uL (4.0-10.0)
[2024-02-04 08:21] LABS: TOTAL IRON BINDING CAPACITY 248 UG/DL (250-425)
[2024-02-04 08:22] LABS: IRON (FE) 27 UG/DL (50-170); PERCENT SATURATION 10.9 % (13.2-45.0)
[2024-02-04 08:40] LABS: BLOOD UREA NITROGEN 18 MG/DL (9-23); CALCIUM LEVEL 7.9 MG/DL (8.3-10.6); CARBON DIOXIDE LEVEL 29 MMOL/L (20-31); CHLORIDE LEVEL 106 MMOL/L (98-107); FERRITIN 243.5 NG/ML (7.3-270.7); FOLATE > 24.00 NG/ML (>5.4); GLOMERULAR FILTRATION RATE > 60.0 (>32); GLUCOSE, FASTING 94 MG/DL (74-106); POTASSIUM SERUM 5.3 MMOL/L (3.5-5.1); SODIUM LEVEL 138 MMOL/L (136-145); VITAMIN B12 LEVEL 473 PG/ML (211-911)
[2024-02-04] MEDS: SENOKOT S TAB PO SCH (09:49)
[2024-02-04] MEDS: ACETAMINOPHEN 500 MG TAB PO SCH (09:49)
[2024-02-04] MEDS: predniSONE 5 MG TAB PO SCH (09:49)
[2024-02-04 12:00] VITALS: BP 116/67; TEMP 97.6; O2SAT 97
[2024-02-04 20:04] VITALS: BP 119/70; TEMP 97.5; O2SAT 95
[2024-02-05 04:44] VITALS: BP_SYST 159; BP_SYST 161; BP_DIAS 86; BP_DIAS 89; TEMP 97.7; O2SAT 97
[2024-02-05 07:36] LABS: CALCIUM LEVEL 8.3 MG/DL (8.3-10.6); CREATININE FOR GFR 1.05 MG/DL (0.55-1.30); GLOMERULAR FILTRATION RATE 52.7 (>32); MAGNESIUM LEVEL 1.8 MG/DL (1.8-2.4); POTASSIUM SERUM 3.8 MMOL/L (3.5-5.1)
[2024-02-05 12:08] VITALS: BP 114/71; TEMP 97.9; O2SAT 94
[2024-02-05] MEDS: FERROUS GLUCONATE 324 MG TAB PO SCH (13:12)
[2024-02-05 20:00] VITALS: BP 140/66; TEMP 98.8; O2SAT 97
[2024-02-05 20:14] VITALS: BP 140/66
[2024-02-05] MEDS: SENOKOT S TAB PO SCH (20:15)
[2024-02-06 04:07] VITALS: BP 168/86; TEMP 98.8; O2SAT 96
[2024-02-06 06:48] LABS: BLOOD UREA NITROGEN 23 MG/DL (9-23); CALCIUM LEVEL 8.8 MG/DL (8.3-10.6); CARBON DIOXIDE LEVEL 30 MMOL/L (20-31); CHLORIDE LEVEL 109 MMOL/L (98-107); CREATININE FOR GFR 0.91 MG/DL (0.55-1.30); GLOMERULAR FILTRATION RATE > 60.0 (>32); GLUCOSE, FASTING 102 MG/DL (74-106); MAGNESIUM LEVEL 1.7 MG/DL (1.8-2.4); POTASSIUM SERUM 4.3 MMOL/L (3.5-5.1); SODIUM LEVEL 144 MMOL/L (136-145)
[2024-02-06] MEDS: MAG SULF 1GM/100ML (MAG RUN) 1 GM in IV 1 EA IV ONE (09:09)
[2024-02-06] MEDS ORDERED: CEFD300CAP PO (10:34)
[2024-02-06] MEDS ORDERED: FERR32TA PO (10:34)
== END 2024-02-06 13:30 ==
LOC: M ED 10:18 → EDSEX 10:18 → EDBD 10:18 → M ED INP 13:03 → INTOOBSV 13:03 → M MS5PR 17:15
PROVIDERS: ADMIT Student in an Organized Health Care Education/Training Program; ATTEND Internal Medicine
DX: R53.81 Other malaise (principal); E83.42 Hypomagnesemia; E87.5 Hyperkalemia; J12.82 Pneumonia due to coronavirus disease 2019; E55.9 Vitamin D deficiency, unspecified; E03.9 Hypothyroidism, unspecified; I10 Essential (primary) hypertension; K21.9 Gastro-esophageal reflux disease without esophagitis; M35.3 Polymyalgia rheumatica; Z79.2 Long term (current) use of antibiotics; Z79.82 Long term (current) use of aspirin; Z79.84 Long term (current) use of oral hypoglycemic drugs; Z79.52 Long term (current) use of systemic steroids; Z88.5 Allergy status to narcotic agent; M51.36 Other intervertebral disc degeneration, lumbar region; J30.9 Allergic rhinitis, unspecified; D64.9 Anemia, unspecified
CPT/HCPCS: 36415; 36600; 51701; 71045; 80048; 80076; 81001; 82550; 82553; 82607; 82728; 82746; 82803; 83550; 83605; 83735; 84145; 84484; 85025; 86140; 87040; 87086; 87426; 87486; 87581; 87633; 87798; 93005; 93041; 94760; 96361; 96372; 96374; 96376; 97161; 99285; G0378; J1815; J3475; J7512

== ENCOUNTER → 2024-02-07 | Outpatient (REF) | payer MEDICARE ==
[~2024-02-07] MED LIST changes: +ACET325C5 PO; +BISA10SU27 PR; +CEFD1CAP9 PO; +ERGO500029 PO; +ESOM1CAP20 PO; +FERR324T21 PO; +FERR32TA PO; +GLUCLIQ37 PO; +GUAI100L6 PO; +MAGN400T2 PO; +MAGN400T35 PO; +MILK400S12 PO; +POTA-136 PO; +THERTAB52 PO
== END ==
LOC: SKLAB2 07:31
PROVIDERS: ATTEND Internal Medicine
DX: Z53.8 Procedure and treatment not carried out for other reasons (principal)

== ENCOUNTER 2024-02-10 22:24 | Inpatient (IN) | payer MEDICARE ==
[~2024-02-10] VITALS: Ht 162.6 cm; Wt 80.6 kg
[~2024-02-10 22:24] MED LIST changes: -ACET325C5 PO; -BISA10SU27 PR; -ERGO500029 PO; -ESOM1CAP20 PO; -FERR324T21 PO; -GLUCLIQ37 PO; -GUAI100L6 PO; -MAGN400T2 PO; -MILK400S12 PO; -POTA-136 PO; -THERTAB52 PO
[2024-02-10] MEDS: GLUCAGON INJ 1MG VIAL IV STA (23:50)
[2024-02-11] VITALS (8 sets, daily range): BP systolic 109–137; BP diastolic 43–80; TEMP 97.3–98.2; O2SAT 91–98
[2024-02-11 00:16] LABS: HEMOGLOBIN 8.9 g/dl (12.0-15.5); MEAN CORPUSCULAR HEMOGLOBIN 32.2 pg (27.0-33.0); MEAN CORPUSCULAR HGB CONC 30.7 g/dl (32.0-36.5); MEAN CORPUSCULAR VOLUME 105.1 fl (80.0-96.0); PLATELET COUNT, AUTOMATED 558 10^3/uL (150-450); RED BLOOD COUNT 2.76 10^6/uL (4.00-5.40)
[2024-02-11 00:31] LABS: CALCIUM LEVEL 8.8 MG/DL (8.3-10.6); CREATININE FOR GFR 0.94 MG/DL (0.55-1.30); GLOMERULAR FILTRATION RATE 59.8 (>32)
[2024-02-11] MEDS ORDERED: SUCCINYLCHOLINE 100MG/5ML SYRINGE As Ordered ONE (02:12)
[2024-02-11] MEDS ORDERED: ONDANSETRON 4MG 2ML VIAL As Ordered ONE (02:12)
[2024-02-11] MEDS ORDERED: ROCURONIUM BROMIDE 50MG/5ML VIAL As Ordered ONE (02:12)
[2024-02-11] MEDS ORDERED: fentaNYL 100 MCG/2 ML INJECTION As Ordered ONE (02:12)
[2024-02-11] MEDS ORDERED: LIDOCAINE 2% 100MG/5ML SDV (FOR ANES.) As Ordered ONE (02:12)
[2024-02-11] MEDS ORDERED: propofoL 200 MG/20 ML VIAL As Ordered ONE (02:12)
[2024-02-11] MEDS ORDERED: GLUCOSE 4 GM CHEW PO PRN (02:35)
[2024-02-11] MEDS ORDERED: ONDANSETRON 4MG 2ML VIAL IV PRN (02:35)
[2024-02-11] MEDS ORDERED: oxyCODONE 5MG TAB PO PRN (02:35)
[2024-02-11] MEDS ORDERED: MEPERIDINE 25 MG/ML 1ML VIAL IV PRN (02:35)
[2024-02-11] MEDS ORDERED: HYDROMORPHONE HCL 0.5 MG/ 0.5 ML SYRINGE IV PRN (02:35)
[2024-02-11] MEDS ORDERED: DEXTROSE 50% 50ML SYRINGE IV PRN (02:35)
[2024-02-11] MEDS ORDERED: fentaNYL 100 MCG/2 ML INJECTION IV PRN (02:35)
[2024-02-11] MEDS ORDERED: GLUCAGON INJ 1MG VIAL SC PRN (02:35)
[2024-02-11] MEDS: NS 1,000 ML IV ONE (03:15)
[2024-02-11] MEDS ORDERED: PHENYLephrine 500MCG 5ML (100MCG/ML) SYRINGE As Ordered ONE (03:24)
[2024-02-11] MEDS ORDERED: SUGAMMADEX SODIUM 500 MG/5 ML VIAL (BRIDION) As Ordered ONE (03:25)
[2024-02-11 03:41] LABS: PROCALCITONIN 0.17 ng/ml
[2024-02-11] MEDS ORDERED: KETOROLAC 30 MG/ML 1ML VIAL IV PRN (04:00)
[2024-02-11] MEDS ORDERED: POTA-136 PO (04:25)
[2024-02-11] MEDS ORDERED: ERGO500029 PO (04:25)
[2024-02-11] MEDS ORDERED: THERTAB52 PO (04:25)
[2024-02-11] MEDS ORDERED: MAGN400T2 PO (04:25)
[2024-02-11] MEDS ORDERED: GLUCLIQ37 PO (04:28)
[2024-02-11] MEDS ORDERED: MILK400S12 PO (04:28)
[2024-02-11] MEDS ORDERED: BISA10SU27 PR (04:28)
[2024-02-11] MEDS ORDERED: HOME MED LIST COMPLETE! XX SCH (04:30)
[2024-02-11] MEDS: INSULIN LISPRO (NovoLOG) PER UNIT SC SCH (06:00)
[2024-02-11] MEDS ORDERED: ESMOLOL INJ 100MG/10ML VIAL As Ordered ONE (06:09)
[2024-02-11] MEDS ORDERED: BISACODYL 10MG SUPP PR PRN (08:35)
[2024-02-11] MEDS ORDERED: predniSONE 5 MG TAB PO SCH (09:00)
[2024-02-11] MEDS ORDERED: predniSONE 2.5 MG TAB PO SCH (09:00)
[2024-02-11] MEDS: PANTOPRAZOLE 40MG VIAL IV SCH (09:29)
[2024-02-11] MEDS: LEVOTHYROXINE 50MCG TABLET (0.05MG) PO SCH (09:30)
[2024-02-11] MEDS ORDERED: PILL CUTTER 1 EACH XX PRN (09:45)
[2024-02-11] MEDS: FUROSEMIDE 20 MG TAB PO SCH (09:48)
[2024-02-11] MEDS: predniSONE 5 MG TAB PO SCH (09:48)
[2024-02-11] MEDS ORDERED: NYSTATIN 100,000 UNITS/GM TOPICAL PWD 15GM TOP PRN (10:00)
[2024-02-11] MEDS: GABAPENTIN 100 MG CAP PO SCH ×2 (12:32→21:34)
[2024-02-11] MEDS: MAGNESIUM OXIDE 400MG TAB (MAG-OX) PO SCH (12:44)
[2024-02-11] MEDS: guaiFENesin ER TABLET 600 MG TAB PO SCH (12:45)
[2024-02-11] MEDS: POTASSIUM CHLORIDE 10MEQ SR TABLET PO SCH (12:45)
[2024-02-11] MEDS: ACETAMINOPHEN 500 MG TAB PO SCH (12:45)
[2024-02-11] MEDS: ENOXAPARIN 40MG/0.4ML SYRINGE (J1650 PER 10MG) SC SCH (21:33)
[2024-02-11] MEDS: MONTELUKAST 10 MG TAB PO SCH (21:34)
[2024-02-11] MEDS: SERTRALINE HCL 25 MG TABLET PO SCH (21:34)
[2024-02-11] MEDS: LOSARTAN 50MG TABLET PO SCH (21:35)
[2024-02-12 03:25] VITALS: BP 108/56; TEMP 97; O2SAT 89
[2024-02-12 03:30] VITALS: O2SAT 95
[2024-02-12 05:32] LABS: ALBUMIN 1.9 G/DL (3.2-5.2); ALKALINE PHOSPHATASE 130 U/L (46-116); ALT/SGPT 20 U/L (7.0-40); AST/SGOT 23 U/L (<34); BILIRUBIN,TOTAL 0.3 MG/DL (0.3-1.2); BLOOD UREA NITROGEN 14 MG/DL (9-23); CALCIUM LEVEL 8.1 MG/DL (8.3-10.6); CARBON DIOXIDE LEVEL 30 MMOL/L (20-31); CHLORIDE LEVEL 105 MMOL/L (98-107); CREATININE FOR GFR 0.93 MG/DL (0.55-1.30); GLOMERULAR FILTRATION RATE > 60.0 (>32); GLUCOSE, FASTING 88 MG/DL (74-106); POTASSIUM SERUM 4.6 MMOL/L (3.5-5.1); SODIUM LEVEL 139 MMOL/L (136-145); TOTAL PROTEIN 5.1 G/DL (5.7-8.2)
[2024-02-12 06:53] LABS: BASO % 0.2 % (0.0-1.0); EOS # 0.1 10^3/uL (0.0-0.5); EOS % 0.7 % (0.0-3.0); HEMOGLOBIN 8.5 g/dl (12.0-15.5); LYMPH # 1.9 10^3/uL (1.5-5.0); LYMPH % 17.5 % (24.0-44.0); MEAN CORPUSCULAR HEMOGLOBIN 31.6 pg (27.0-33.0); MEAN CORPUSCULAR HGB CONC 29.3 g/dl (32.0-36.5); MEAN CORPUSCULAR VOLUME 107.8 fl (80.0-96.0); MONO # 0.8 10^3/uL (0.0-0.8); MONO % 7.1 % (2.0-8.0); NEUTROPHILS # 7.9 10^3/uL (1.5-8.5); NEUTROPHILS % 73.7 % (36.0-66.0); PLATELET COUNT, AUTOMATED 517 10^3/uL (150-450); RED BLOOD COUNT 2.69 10^6/uL (4.00-5.40); WHITE BLOOD COUNT 10.8 10^3/uL (4.0-10.0)
[2024-02-12 12:00] VITALS: BP_SYST 104; BP_SYST 93; BP_DIAS 45; BP_DIAS 50; TEMP 98.8; O2SAT 92
[2024-02-12 20:43] VITALS: BP 122/60
[2024-02-12 20:44] VITALS: BP 122/60; TEMP 98.2; O2SAT 99
[2024-02-13 03:40] VITALS: BP 118/60; TEMP 97.9; O2SAT 94
[2024-02-13] MEDS: MOM 30ML SUSPENSION UDC PO PRN (09:00)
[2024-02-13 12:00] VITALS: BP 103/54; TEMP 98.1; O2SAT 93
[2024-02-13] MEDS ORDERED: GUAI100L6 PO (23:09)
== END 2024-02-13 13:30 | DRG 392 ==
LOC: EDBD 22:24 → M ED 22:24 → M ED INP 02-11 02:30 → M MSPAV 02-11 06:45
PROVIDERS: ADMIT Student in an Organized Health Care Education/Training Program; ATTEND Internal Medicine
PROC: 0DC58ZZ Extirpation of Matter from Esophagus, Via Natural or Artificial Opening Endoscopic (ICD-10-PCS; principal; 2024-02-11 02:06)
DX: K22.2 Esophageal obstruction (principal); E11.649 Type 2 diabetes mellitus with hypoglycemia without coma; E03.9 Hypothyroidism, unspecified; I10 Essential (primary) hypertension; K21.9 Gastro-esophageal reflux disease without esophagitis; K44.9 Diaphragmatic hernia without obstruction or gangrene; T18.128A Food in esophagus causing other injury, initial encounter; F39 Unspecified mood [affective] disorder; E61.1 Iron deficiency; D75.839 Thrombocytosis, unspecified; K25.9 Gastric ulcer, unspecified as acute or chronic, without hemorrhage or perforation; E55.9 Vitamin D deficiency, unspecified; M35.3 Polymyalgia rheumatica; Z98.41 Cataract extraction status, right eye; Z98.42 Cataract extraction status, left eye; Z90.49 Acquired absence of other specified parts of digestive tract; Z66 Do not resuscitate; Z86.16 Personal history of COVID-19; Z79.82 Long term (current) use of aspirin; Z79.84 Long term (current) use of oral hypoglycemic drugs; Z79.890 Hormone replacement therapy; Z79.899 Other long term (current) drug therapy; Z88.5 Allergy status to narcotic agent; Z79.52 Long term (current) use of systemic steroids

== ENCOUNTER → 2024-02-15 | Outpatient (REF) | payer MEDICARE ==
[~2024-02-15] MED LIST changes: +ACET325C5 PO; +BISA10SU27 PR; +ERGO500029 PO; +ESOM1CAP20 PO; +FERR324T21 PO; +GLUCLIQ37 PO; +GUAI100L6 PO; +MAGN400T2 PO; +MILK400S12 PO; +POTA-136 PO; +THERTAB52 PO
[2024-02-15 09:50] LABS: HEMATOCRIT 28.8 % (36.0-47.0); HEMOGLOBIN 8.7 g/dl (12.0-15.5); MEAN CORPUSCULAR HEMOGLOBIN 31.8 pg (27.0-33.0); MEAN CORPUSCULAR HGB CONC 30.2 g/dl (32.0-36.5); MEAN CORPUSCULAR VOLUME 105.1 fl (80.0-96.0); PLATELET COUNT, AUTOMATED 709 10^3/uL (150-450); RED BLOOD COUNT 2.74 10^6/uL (4.00-5.40); WHITE BLOOD COUNT 12.8 10^3/uL (4.0-10.0)
[2024-02-15 10:02] LABS: HEMOGLOBIN A1c 5.6 % (4.0-6.0)
[2024-02-15 10:22] LABS: ALBUMIN 2.1 G/DL (3.2-5.2); ALKALINE PHOSPHATASE 150 U/L (46-116); ALT/SGPT 18 U/L (7.0-40); AST/SGOT 14 U/L (<34); BILIRUBIN,TOTAL 0.3 MG/DL (0.3-1.2); BLOOD UREA NITROGEN 15 MG/DL (9-23); CALCIUM LEVEL 8.7 MG/DL (8.3-10.6); CARBON DIOXIDE LEVEL 29 MMOL/L (20-31); CHLORIDE LEVEL 104 MMOL/L (98-107); CREATININE FOR GFR 0.82 MG/DL (0.55-1.30); GLOMERULAR FILTRATION RATE > 60.0 (>32); GLUCOSE, FASTING 134 MG/DL (74-106); POTASSIUM SERUM 4.9 MMOL/L (3.5-5.1); SODIUM LEVEL 139 MMOL/L (136-145); TOTAL PROTEIN 5.5 G/DL (5.7-8.2)
== END ==
LOC: SKLAB2 06:55
PROVIDERS: ATTEND Internal Medicine
DX: E11.9 Type 2 diabetes mellitus without complications (principal); I10 Essential (primary) hypertension

== ENCOUNTER 2024-02-18 16:07 | Inpatient (IN) | payer MEDICARE ==
[~2024-02-18] VITALS: Ht 160 cm; Wt 73.2 kg
[~2024-02-18 16:07] MED LIST changes: -ACET325C5 PO; -ESOM1CAP20 PO; -FERR324T21 PO
[2024-02-18] MEDS: PIPERACILLIN/TAZOBACTAM SOD 4.5 GM in D5W MINI-BAG PLUS 50 ML IV ONE (18:22)
[2024-02-18] MEDS ORDERED: MOM 30ML SUSPENSION UDC PO PRN ×2 (20:10→23:40)
[2024-02-18] MEDS ORDERED: GLUCAGON INJ 1MG VIAL SC PRN (20:30)
[2024-02-18] MEDS ORDERED: GLUCOSE 4 GM CHEW PO PRN (20:30)
[2024-02-18] MEDS ORDERED: DEXTROSE 50% 50ML SYRINGE IV PRN (20:30)
[2024-02-18] MEDS: INSULIN LISPRO (NovoLOG) PER UNIT SC SCH (21:00)
[2024-02-18] MEDS: DOCUSATE SODIUM 100MG CAPSULE PO SCH (21:00)
[2024-02-18] MEDS ORDERED: FERR324T21 PO (23:09)
[2024-02-18] MEDS ORDERED: ACET325C5 PO (23:09)
[2024-02-18] MEDS ORDERED: ESOM1CAP20 PO (23:09)
[2024-02-18] MEDS ORDERED: HOME MED LIST COMPLETE! XX SCH (23:10)
[2024-02-18 23:27] VITALS: BP 169/99; TEMP 97.3; O2SAT 90
[2024-02-18] MEDS ORDERED: guaiFENesin SYRUP 200MG 10ML UDC PO PRN (23:40)
[2024-02-18] MEDS ORDERED: BISACODYL 10MG SUPP PR PRN (23:40)
[2024-02-18] MEDS ORDERED: NYSTATIN 100,000 UNITS/GM TOPICAL PWD 15GM TOP PRN (23:40)
[2024-02-19] VITALS (9 sets, daily range): BP systolic 100–145; BP diastolic 57–80; TEMP 96.9–102.9; O2SAT 93–100
[2024-02-19] MEDS: PIPERACILLIN/TAZOBACTAM SOD 4.5 GM in D5W MINI-BAG PLUS 50 ML IV SCH (00:28)
[2024-02-19] MEDS: LEVOTHYROXINE 50MCG TABLET (0.05MG) PO SCH (05:30)
[2024-02-19 06:50] LABS: PROCALCITONIN 0.62 ng/ml
[2024-02-19 06:51] LABS: ALBUMIN 1.7 G/DL (3.2-5.2); BILIRUBIN,TOTAL 0.7 MG/DL (0.3-1.2); CALCIUM LEVEL 8.3 MG/DL (8.3-10.6); CREATININE FOR GFR 0.96 MG/DL (0.55-1.30); GLOMERULAR FILTRATION RATE 58.4 (>32); TOTAL PROTEIN 5.1 G/DL (5.7-8.2)
[2024-02-19] MEDS: INSULIN LISPRO (NovoLOG) PER UNIT SC SCH (07:30)
[2024-02-19 08:09] LABS: C REACTIVE PROTEIN QUANTITATIV 21.6 MG/DL (<1.0)
[2024-02-19 08:19] LABS: EOS % 0.1 % (0.0-3.0); HEMOGLOBIN 8.7 g/dl (12.0-15.5); LYMPH % 6.3 % (24.0-44.0); MEAN CORPUSCULAR HEMOGLOBIN 31.5 pg (27.0-33.0); MEAN CORPUSCULAR HGB CONC 31.1 g/dl (32.0-36.5); MEAN CORPUSCULAR VOLUME 101.4 fl (80.0-96.0); MONO % 4.1 % (2.0-8.0); PLATELET COUNT, AUTOMATED 614 10^3/uL (150-450); RED BLOOD COUNT 2.76 10^6/uL (4.00-5.40); WHITE BLOOD COUNT 28.7 10^3/uL (4.0-10.0)
[2024-02-19 08:20] LABS: BASO # 0.1 10^3/uL (0.0-0.2); BASO % 0.2 % (0.0-1.0); LYMPH # 1.8 10^3/uL (1.5-5.0); MONO # 1.2 10^3/uL (0.0-0.8); NEUTROPHILS # 25.3 10^3/uL (1.5-8.5)
[2024-02-19] MEDS: ENOXAPARIN 40MG/0.4ML SYRINGE (J1650 PER 10MG) SC SCH (08:25)
[2024-02-19] MEDS: predniSONE 5 MG TAB PO SCH (08:25)
[2024-02-19] MEDS: ASPIRIN 81MG ENTERIC TABLET PO SCH (08:25)
[2024-02-19] MEDS: predniSONE 2.5 MG TAB PO SCH (08:25)
[2024-02-19] MEDS: MAGNESIUM OXIDE 400MG TAB (MAG-OX) PO SCH (08:26)
[2024-02-19] MEDS: GABAPENTIN 100 MG CAP PO SCH ×2 (08:26→19:31)
[2024-02-19] MEDS: NS 1,000 ML IV SCH (12:28)
[2024-02-19] MEDS: PANTOPRAZOLE 40MG VIAL IV SCH (13:49)
[2024-02-19] MEDS: ACETAMINOPHEN *IV* 1,000 MG in IV 1 EA IV ONE (13:49)
[2024-02-19] MEDS: GASTROGRAFIN SOLUTION 30ML PO SCH (14:56)
[2024-02-19] MEDS ORDERED: ISOVUE-370 76% 100ML VIAL As Ordered ONE (16:14)
[2024-02-19] MEDS: MONTELUKAST 10 MG TAB PO SCH (19:31)
[2024-02-19] MEDS: SERTRALINE HCL 25 MG TABLET PO SCH (19:31)
[2024-02-19] MEDS: VANCOMYCIN HCL 750 MG, VIAL MATE ADAPTER 1 EACH in D5W 250 ML IV ONE (22:16)
[2024-02-20] VITALS (8 sets, daily range): BP systolic 107–136; BP diastolic 52–70; TEMP 99.9–101.5; O2SAT 94–99
[2024-02-20] MEDS: VANCOMYCIN HCL 750 MG, VIAL MATE ADAPTER 1 EACH in D5W 250 ML IV ONE (00:10)
[2024-02-20] MEDS: ACETAMINOPHEN *IV* 500 MG in IV 1 EA IV ONE (00:52)
[2024-02-20 05:14] LABS: BASO % 0.1 % (0.0-1.0); EOS # 0.1 10^3/uL (0.0-0.5); EOS % 0.3 % (0.0-3.0); HEMATOCRIT 26.7 % (36.0-47.0); HEMOGLOBIN 8.1 g/dl (12.0-15.5); LYMPH # 1.4 10^3/uL (1.5-5.0); LYMPH % 5.2 % (24.0-44.0); MEAN CORPUSCULAR HEMOGLOBIN 31.2 pg (27.0-33.0); MEAN CORPUSCULAR HGB CONC 30.3 g/dl (32.0-36.5); MEAN CORPUSCULAR VOLUME 102.7 fl (80.0-96.0); MONO # 0.6 10^3/uL (0.0-0.8); MONO % 2.1 % (2.0-8.0); NEUTROPHILS # 24.5 10^3/uL (1.5-8.5); NEUTROPHILS % 91.1 % (36.0-66.0); PLATELET COUNT, AUTOMATED 528 10^3/uL (150-450); WHITE BLOOD COUNT 26.9 10^3/uL (4.0-10.0)
[2024-02-20 05:36] LABS: BLOOD UREA NITROGEN 17 MG/DL (9-23); CALCIUM LEVEL 7.3 MG/DL (8.3-10.6); CARBON DIOXIDE LEVEL 27 MMOL/L (20-31); CHLORIDE LEVEL 106 MMOL/L (98-107); CREATININE FOR GFR 0.89 MG/DL (0.55-1.30); GLOMERULAR FILTRATION RATE > 60.0 (>32); GLUCOSE, FASTING 98 MG/DL (74-106); MAGNESIUM LEVEL 1.7 MG/DL (1.8-2.4); POTASSIUM SERUM 4.2 MMOL/L (3.5-5.1); SODIUM LEVEL 137 MMOL/L (136-145)
[2024-02-20] MEDS: MAG SULF 1GM/100ML (MAG RUN) 1 GM in IV 1 EA IV ONE (11:10)
[2024-02-20] MEDS ORDERED: LIDOCAINE 1% MDV 20ML VIAL As Ordered ONE (11:51)
[2024-02-20] MEDS: ACETAMINOPHEN *IV* 500 MG in IV 1 EA IV PRN (11:56)
[2024-02-20] MEDS: VANCOMYCIN HCL 1,000 MG, VIAL MATE ADAPTER 1 EACH in D5W 250 ML IV SCH (14:20)
[2024-02-20] MEDS: ACETAMINOPHEN TAB 650MG DOSE (2X325MG) PO PRN (18:14)
[2024-02-21] VITALS: BP 114/57; TEMP 100.6; O2SAT 95
[2024-02-21 04:00] VITALS: BP 106/61; TEMP 100.8; O2SAT 95
[2024-02-21 05:08] LABS: HEMATOCRIT 25.5 % (36.0-47.0); HEMOGLOBIN 7.8 g/dl (12.0-15.5); MEAN CORPUSCULAR HEMOGLOBIN 31.5 pg (27.0-33.0); MEAN CORPUSCULAR HGB CONC 30.6 g/dl (32.0-36.5); MEAN CORPUSCULAR VOLUME 102.8 fl (80.0-96.0); PLATELET COUNT, AUTOMATED 571 10^3/uL (150-450); RED BLOOD COUNT 2.48 10^6/uL (4.00-5.40); WHITE BLOOD COUNT 24.5 10^3/uL (4.0-10.0)
[2024-02-21 05:25] LABS: BLOOD UREA NITROGEN 16 MG/DL (9-23); CALCIUM LEVEL 7.6 MG/DL (8.3-10.6); CARBON DIOXIDE LEVEL 26 MMOL/L (20-31); CHLORIDE LEVEL 102 MMOL/L (98-107); CREATININE FOR GFR 0.85 MG/DL (0.55-1.30); GLOMERULAR FILTRATION RATE > 60.0 (>32); GLUCOSE, FASTING 88 MG/DL (74-106); POTASSIUM SERUM 3.9 MMOL/L (3.5-5.1); SODIUM LEVEL 135 MMOL/L (136-145)
[2024-02-21 06:10] LABS: LYMPHOCYTES 8 % (16-44); MONOCYTES 1 % (0-5); NEUTROPHILS 89 % (28-66)
[2024-02-21 06:11] LABS: ANISOCYTOSIS 1+; HYPOCHROMASIA 1+; MICROCYTOSIS 1+; PLATELET ESTIMATE INCREASED (NORMAL)
[2024-02-21 06:12] LABS: POLYCHROMASIA 1+
[2024-02-21 08:00] VITALS: BP 119/62; TEMP 99.9; O2SAT 95
[2024-02-21] MEDS: PERMETHRIN 5% CREAM 60 GM TOP ONE (09:20)
[2024-02-21 11:02] LABS: HEMATOCRIT 27.4 % (36.0-47.0); HEMOGLOBIN 8.4 g/dl (12.0-15.5)
[2024-02-21 12:00] VITALS: BP 102/58; TEMP 97.7; TEMP 99.2; O2SAT 95
[2024-02-21] MEDS: NS 1,000 ML IV SCH (12:09)
[2024-02-21] MEDS: NS 500 ML IV ONE (12:10)
[2024-02-21] MEDS: VANCOMYCIN HCL 750 MG, VIAL MATE ADAPTER 1 EACH in D5W 250 ML IV SCH (14:18)
[2024-02-21] MEDS: VANCOMYCIN HCL 500 MG in D5W MINI-BAG PLUS 100 ML IV SCH (15:00)
[2024-02-21 16:00] VITALS: BP 118/58; TEMP 99.9; O2SAT 96
[2024-02-21 20:00] VITALS: BP 113/58; TEMP 98.2; O2SAT 95
[2024-02-22] VITALS (7 sets, daily range): BP systolic 112–125; BP diastolic 53–61; TEMP 96.3–98.6; O2SAT 88–99
[2024-02-22 05:20] LABS: BASO # 0.1 10^3/uL (0.0-0.2); BASO % 0.2 % (0.0-1.0); EOS # 0.1 10^3/uL (0.0-0.5); EOS % 0.4 % (0.0-3.0); HEMATOCRIT 25.7 % (36.0-47.0); HEMOGLOBIN 7.6 g/dl (12.0-15.5); LYMPH # 1.7 10^3/uL (1.5-5.0); LYMPH % 7.1 % (24.0-44.0); MEAN CORPUSCULAR HEMOGLOBIN 30.8 pg (27.0-33.0); MEAN CORPUSCULAR HGB CONC 29.6 g/dl (32.0-36.5); MONO # 0.5 10^3/uL (0.0-0.8); MONO % 2.1 % (2.0-8.0); NEUTROPHILS # 21.3 10^3/uL (1.5-8.5); NEUTROPHILS % 89.2 % (36.0-66.0); PLATELET COUNT, AUTOMATED 563 10^3/uL (150-450); RED BLOOD COUNT 2.47 10^6/uL (4.00-5.40); WHITE BLOOD COUNT 23.9 10^3/uL (4.0-10.0)
[2024-02-22 05:44] LABS: BLOOD UREA NITROGEN 12 MG/DL (9-23); CALCIUM LEVEL 7.8 MG/DL (8.3-10.6); CARBON DIOXIDE LEVEL 29 MMOL/L (20-31); CHLORIDE LEVEL 107 MMOL/L (98-107); CREATININE FOR GFR 0.88 MG/DL (0.55-1.30); GLOMERULAR FILTRATION RATE > 60.0 (>32); GLUCOSE, FASTING 102 MG/DL (74-106); POTASSIUM SERUM 4.5 MMOL/L (3.5-5.1); SODIUM LEVEL 140 MMOL/L (136-145)
[2024-02-22] MEDS ORDERED: PILL CUTTER 1 EACH XX PRN (13:45)
[2024-02-22] MEDS: FERROUS GLUCONATE 324 MG TAB PO SCH (16:11)
[2024-02-22] MEDS: OMEPRAZOLE 20MG CAP PO SCH (16:11)
[2024-02-22] MEDS: FOLIC ACID 1MG TAB PO SCH (16:12)
[2024-02-22] MEDS: MULTIVITAMINS/MINERALS THERAP 1 TAB PO SCH (16:12)
[2024-02-22] MEDS: CETIRIZINE (ZyrTEC) 10 MG TAB PO SCH (21:27)
[2024-02-23] VITALS (11 sets, daily range): BP systolic 118–157; BP diastolic 59–79; TEMP 97.2–98.8; O2SAT 92–98
[2024-02-23 05:21] LABS: BASO % 0.1 % (0.0-1.0); EOS # 0.1 10^3/uL (0.0-0.5); EOS % 0.5 % (0.0-3.0); HEMATOCRIT 24.4 % (36.0-47.0); HEMOGLOBIN 7.4 g/dl (12.0-15.5); LYMPH # 1.7 10^3/uL (1.5-5.0); LYMPH % 10.4 % (24.0-44.0); MEAN CORPUSCULAR HEMOGLOBIN 31.2 pg (27.0-33.0); MEAN CORPUSCULAR HGB CONC 30.3 g/dl (32.0-36.5); MONO # 0.4 10^3/uL (0.0-0.8); MONO % 2.4 % (2.0-8.0); NEUTROPHILS # 13.9 10^3/uL (1.5-8.5); NEUTROPHILS % 85.1 % (36.0-66.0); PLATELET COUNT, AUTOMATED 529 10^3/uL (150-450); RED BLOOD COUNT 2.37 10^6/uL (4.00-5.40); WHITE BLOOD COUNT 16.4 10^3/uL (4.0-10.0)
[2024-02-23 05:45] LABS: BLOOD UREA NITROGEN 14 MG/DL (9-23); CALCIUM LEVEL 7.8 MG/DL (8.3-10.6); CARBON DIOXIDE LEVEL 27 MMOL/L (20-31); CHLORIDE LEVEL 110 MMOL/L (98-107); CREATININE FOR GFR 0.87 MG/DL (0.55-1.30); GLOMERULAR FILTRATION RATE > 60.0 (>32); GLUCOSE, FASTING 108 MG/DL (74-106); MAGNESIUM LEVEL 1.9 MG/DL (1.8-2.4); POTASSIUM SERUM 3.7 MMOL/L (3.5-5.1); SODIUM LEVEL 141 MMOL/L (136-145)
[2024-02-23] MEDS: GASTROGRAFIN SOLUTION 30ML PO SCH (06:47)
[2024-02-23] MEDS: LACTOBACILLUS ACIDOPHILUS CAP (BACID) PO SCH (09:05)
[2024-02-23] MEDS: FUROSEMIDE 40MG/4ML VIAL IV ONE (09:06)
[2024-02-23 16:47] LABS: HEMATOCRIT 35.8 % (36.0-47.0); HEMOGLOBIN 10.8 g/dl (12.0-15.5)
[2024-02-23] MEDS: FLUCONAZOLE 100 MG TAB PO SCH (17:13)
[2024-02-24 03:38] VITALS: BP 142/64; TEMP 97.5; O2SAT 94
[2024-02-24 06:36] LABS: BASO % 0.3 % (0.0-1.0); EOS # 0.1 10^3/uL (0.0-0.5); EOS % 0.8 % (0.0-3.0); HEMATOCRIT 30.1 % (36.0-47.0); HEMOGLOBIN 9.2 g/dl (12.0-15.5); LYMPH # 1.7 10^3/uL (1.5-5.0); LYMPH % 13.3 % (24.0-44.0); MEAN CORPUSCULAR HEMOGLOBIN 30.5 pg (27.0-33.0); MEAN CORPUSCULAR HGB CONC 30.6 g/dl (32.0-36.5); MEAN CORPUSCULAR VOLUME 99.7 fl (80.0-96.0); MONO # 0.6 10^3/uL (0.0-0.8); MONO % 4.4 % (2.0-8.0); NEUTROPHILS # 10.1 10^3/uL (1.5-8.5); NEUTROPHILS % 78.9 % (36.0-66.0); PLATELET COUNT, AUTOMATED 564 10^3/uL (150-450); RED BLOOD COUNT 3.02 10^6/uL (4.00-5.40); WHITE BLOOD COUNT 12.7 10^3/uL (4.0-10.0)
[2024-02-24 06:52] LABS: BLOOD UREA NITROGEN 12 MG/DL (9-23); CALCIUM LEVEL 7.8 MG/DL (8.3-10.6); CARBON DIOXIDE LEVEL 24 MMOL/L (20-31); CHLORIDE LEVEL 110 MMOL/L (98-107); CREATININE FOR GFR 0.81 MG/DL (0.55-1.30); GLOMERULAR FILTRATION RATE > 60.0 (>32); GLUCOSE, FASTING 89 MG/DL (74-106); MAGNESIUM LEVEL 1.7 MG/DL (1.8-2.4); POTASSIUM SERUM 3.5 MMOL/L (3.5-5.1); SODIUM LEVEL 142 MMOL/L (136-145)
[2024-02-24] MEDS ORDERED: MAG SULF 1GM/100ML (MAG RUN) 1 GM in IV 1 EA IV ONE (07:20)
[2024-02-24] MEDS: POTASSIUM CHLORIDE 10MEQ SR TABLET PO ONE (07:50)
[2024-02-24 08:15] VITALS: BP 137/64; TEMP 98.7; O2SAT 96
[2024-02-24] MEDS: MAG SULF 1GM/100ML (MAG RUN) 1 GM in IV 1 EA IV ONE (08:33)
[2024-02-24] MEDS: PANTOPRAZOLE 40MG VIAL IV SCH (09:45)
[2024-02-24] MEDS: FUROSEMIDE 40MG/4ML VIAL IV ONE (09:45)
[2024-02-24] MEDS ORDERED: LEVOTHYROXINE 100MCG (0.1MG) 5ML SDV PF (SOLUTION FORM) IV SCH (11:00)
[2024-02-24] MEDS ORDERED: DEXTROSE 50% 50ML SYRINGE IV PRN (11:05)
[2024-02-24] MEDS ORDERED: GLUCAGON INJ 1MG VIAL SC PRN (11:05)
[2024-02-24] MEDS ORDERED: GLUCOSE 4 GM CHEW PO PRN (11:05)
[2024-02-24] MEDS: INSULIN LISPRO (NovoLOG) PER UNIT SC SCH (12:00)
[2024-02-24 12:41] VITALS: BP 120/62; TEMP 98.4; O2SAT 95
[2024-02-24] MEDS: HYDROCORTISONE 100MG/2ML VIAL IV SCH (12:48)
[2024-02-24] MEDS: cefTRIAXone SOD 2 GM in D5W MINI-BAG PLUS 50 ML IV SCH (12:48)
[2024-02-24] MEDS ORDERED: DIAPER RELIEF PASTE (DESITIN) 60GM TOP PRN (13:20)
[2024-02-24] MEDS ORDERED: AMINO AC/ELECTROLYTE/DEX/CALC 1,000 ML IV SCH (14:00)
[2024-02-24 15:45] VITALS: BP 144/73; TEMP 99.2; O2SAT 93
[2024-02-24] MEDS: FLUCONAZOLE 200 MG in IV 1 EA IV SCH (17:04)
[2024-02-24] MEDS: AMINO AC/ELECTROLYTE/DEX/CALC 1,000 ML IV SCH (17:04)
[2024-02-24] MEDS: FAT EMULSION IV 250 ML IV ONE (17:04)
[2024-02-24 19:31] VITALS: BP 151/73; TEMP 98.1; O2SAT 95
[2024-02-24 23:24] VITALS: BP 137/84; TEMP 98.4; O2SAT 93
[2024-02-25 03:28] VITALS: BP 140/70; TEMP 98.5; O2SAT 96
[2024-02-25 06:03] LABS: BASO % 0.3 % (0.0-1.0); EOS % 0.4 % (0.0-3.0); HEMOGLOBIN 9.1 g/dl (12.0-15.5); LYMPH # 1.6 10^3/uL (1.5-5.0); MEAN CORPUSCULAR HEMOGLOBIN 30.5 pg (27.0-33.0); MEAN CORPUSCULAR HGB CONC 31.4 g/dl (32.0-36.5); MEAN CORPUSCULAR VOLUME 97.3 fl (80.0-96.0); MONO # 0.7 10^3/uL (0.0-0.8); MONO % 6.2 % (2.0-8.0); NEUTROPHILS # 8.2 10^3/uL (1.5-8.5); PLATELET COUNT, AUTOMATED 552 10^3/uL (150-450); RED BLOOD COUNT 2.98 10^6/uL (4.00-5.40); WHITE BLOOD COUNT 10.8 10^3/uL (4.0-10.0)
[2024-02-25 06:19] LABS: BLOOD UREA NITROGEN 14 MG/DL (9-23); CALCIUM LEVEL 8.1 MG/DL (8.3-10.6); CARBON DIOXIDE LEVEL 30 MMOL/L (20-31); CHLORIDE LEVEL 108 MMOL/L (98-107); CREATININE FOR GFR 0.75 MG/DL (0.55-1.30); GLOMERULAR FILTRATION RATE > 60.0 (>32); GLUCOSE, FASTING 136 MG/DL (74-106); MAGNESIUM LEVEL 1.9 MG/DL (1.8-2.4); POTASSIUM SERUM 3.2 MMOL/L (3.5-5.1); SODIUM LEVEL 140 MMOL/L (136-145)
[2024-02-25 07:22] VITALS: BP 134/72; TEMP 97.6; O2SAT 93
[2024-02-25] MEDS ORDERED: KCL 10MEQ/100ML SWI (KRUN) 10 MEQ in IV 1 EA IV SCH (08:00)
[2024-02-25] MEDS: LEVOTHYROXINE 100MCG (0.1MG) 5ML SDV PF (SOLUTION FORM) IV SCH (08:08)
[2024-02-25] MEDS: KCL 10MEQ/100ML SWI (KRUN) 10 MEQ in IV 1 EA IV SCH (08:08)
[2024-02-25 11:42] VITALS: BP 136/81; TEMP 98.6; O2SAT 93
[2024-02-25 15:22] VITALS: BP 150/66; TEMP 98.6; O2SAT 95
[2024-02-25 16:15] LABS: BLOOD UREA NITROGEN 12 MG/DL (9-23); CALCIUM LEVEL 7.8 MG/DL (8.3-10.6); CARBON DIOXIDE LEVEL 28 MMOL/L (20-31); CHLORIDE LEVEL 105 MMOL/L (98-107); CREATININE FOR GFR 0.66 MG/DL (0.55-1.30); GLOMERULAR FILTRATION RATE > 60.0 (>32); GLUCOSE, FASTING 155 MG/DL (74-106); POTASSIUM SERUM 3.9 MMOL/L (3.5-5.1); SODIUM LEVEL 139 MMOL/L (136-145)
[2024-02-25] MEDS: FAT EMULSION IV 250 ML IV ONE (17:06)
[2024-02-25 23:41] VITALS: BP 131/79; TEMP 98.2; O2SAT 94
[2024-02-26 03:28] VITALS: BP 140/66; TEMP 98.1; O2SAT 96
[2024-02-26 07:09] LABS: BASO % 0.4 % (0.0-1.0); EOS # 0.1 10^3/uL (0.0-0.5); EOS % 1.4 % (0.0-3.0); HEMATOCRIT 27.1 % (36.0-47.0); HEMOGLOBIN 8.7 g/dl (12.0-15.5); LYMPH % 22.3 % (24.0-44.0); MEAN CORPUSCULAR HEMOGLOBIN 30.6 pg (27.0-33.0); MEAN CORPUSCULAR HGB CONC 32.1 g/dl (32.0-36.5); MEAN CORPUSCULAR VOLUME 95.4 fl (80.0-96.0); MONO # 0.8 10^3/uL (0.0-0.8); MONO % 8.7 % (2.0-8.0); NEUTROPHILS # 5.6 10^3/uL (1.5-8.5); NEUTROPHILS % 62.9 % (36.0-66.0); PLATELET COUNT, AUTOMATED 507 10^3/uL (150-450); RED BLOOD COUNT 2.84 10^6/uL (4.00-5.40)
[2024-02-26 07:35] LABS: BLOOD UREA NITROGEN 11 MG/DL (9-23); CALCIUM LEVEL 7.6 MG/DL (8.3-10.6); CARBON DIOXIDE LEVEL 26 MMOL/L (20-31); CHLORIDE LEVEL 107 MMOL/L (98-107); CREATININE FOR GFR 0.65 MG/DL (0.55-1.30); GLOMERULAR FILTRATION RATE > 60.0 (>32); GLUCOSE, FASTING 96 MG/DL (74-106); MAGNESIUM LEVEL 1.8 MG/DL (1.8-2.4); POTASSIUM SERUM 3.6 MMOL/L (3.5-5.1); SODIUM LEVEL 139 MMOL/L (136-145)
[2024-02-26 07:46] VITALS: BP 145/69; TEMP 98.5; O2SAT 94
[2024-02-26] MEDS ORDERED: E-Z-PAQUE 96% w/w SUSP 176GM BTL As Ordered ONE (11:50)
[2024-02-26 12:00] VITALS: BP 146/72; TEMP 99
[2024-02-26 16:00] VITALS: BP 167/82; TEMP 98.6; O2SAT 96
[2024-02-26] MEDS ORDERED: DEXTROSE 50% 50ML SYRINGE IV PRN (17:50)
[2024-02-26] MEDS ORDERED: GLUCAGON INJ 1MG VIAL SC PRN (17:50)
[2024-02-26] MEDS ORDERED: GLUCOSE 4 GM CHEW PO PRN (17:50)
[2024-02-26] MEDS: FLUCONAZOLE 100 MG TAB PO SCH (18:21)
[2024-02-26] MEDS: INSULIN LISPRO (NovoLOG) PER UNIT SC SCH (18:21)
[2024-02-26] MEDS: AUGMENTIN 875 MG TAB PO SCH (21:24)
[2024-02-26 21:30] VITALS: BP 147/95; TEMP 98.9; O2SAT 95
[2024-02-27] VITALS (7 sets, daily range): BP systolic 143–178; BP diastolic 70–81; TEMP 98–98.9; O2SAT 92–96
[2024-02-27 06:31] LABS: BASO % 0.4 % (0.0-1.0); EOS # 0.1 10^3/uL (0.0-0.5); LYMPH # 2.2 10^3/uL (1.5-5.0); LYMPH % 20.3 % (24.0-44.0); MEAN CORPUSCULAR HEMOGLOBIN 30.8 pg (27.0-33.0); MEAN CORPUSCULAR VOLUME 99.3 fl (80.0-96.0); MONO # 0.8 10^3/uL (0.0-0.8); MONO % 7.8 % (2.0-8.0); NEUTROPHILS # 7.1 10^3/uL (1.5-8.5); NEUTROPHILS % 67.3 % (36.0-66.0); PLATELET COUNT, AUTOMATED 522 10^3/uL (150-450); RED BLOOD COUNT 2.92 10^6/uL (4.00-5.40); WHITE BLOOD COUNT 10.6 10^3/uL (4.0-10.0)
[2024-02-27 06:57] LABS: BLOOD UREA NITROGEN 9 MG/DL (9-23); CALCIUM LEVEL 7.9 MG/DL (8.3-10.6); CARBON DIOXIDE LEVEL 30 MMOL/L (20-31); CHLORIDE LEVEL 107 MMOL/L (98-107); CREATININE FOR GFR 0.64 MG/DL (0.55-1.30); GLOMERULAR FILTRATION RATE > 60.0 (>32); GLUCOSE, FASTING 89 MG/DL (74-106); MAGNESIUM LEVEL 1.8 MG/DL (1.8-2.4); POTASSIUM SERUM 3.5 MMOL/L (3.5-5.1); SODIUM LEVEL 143 MMOL/L (136-145)
[2024-02-27 08:45] LABS: FREE T4 0.97 NG/DL (0.89-1.76); THYROID STIMULATING HORMONE 7.881 uIU/ML (0.55-4.78)
[2024-02-27] MEDS ORDERED: FLUCONAZOLE 50MG TABLET PO SCH (09:00)
[2024-02-27] MEDS: LOSARTAN 25 MG TAB PO SCH (09:19)
[2024-02-27] MEDS: amLODIPine 5 MG TAB PO SCH (09:20)
[2024-02-28 00:03] VITALS: BP 136/65; TEMP 97.9; O2SAT 94
[2024-02-28 06:12] LABS: BASO # 0.1 10^3/uL (0.0-0.2); BASO % 0.5 % (0.0-1.0); EOS # 0.1 10^3/uL (0.0-0.5); EOS % 0.9 % (0.0-3.0); HEMATOCRIT 31.6 % (36.0-47.0); HEMOGLOBIN 9.6 g/dl (12.0-15.5); LYMPH # 2.4 10^3/uL (1.5-5.0); LYMPH % 19.4 % (24.0-44.0); MEAN CORPUSCULAR HEMOGLOBIN 30.5 pg (27.0-33.0); MEAN CORPUSCULAR HGB CONC 30.4 g/dl (32.0-36.5); MEAN CORPUSCULAR VOLUME 100.3 fl (80.0-96.0); MONO # 0.8 10^3/uL (0.0-0.8); MONO % 6.6 % (2.0-8.0); NEUTROPHILS # 8.6 10^3/uL (1.5-8.5); NEUTROPHILS % 69.5 % (36.0-66.0); PLATELET COUNT, AUTOMATED 562 10^3/uL (150-450); RED BLOOD COUNT 3.15 10^6/uL (4.00-5.40); WHITE BLOOD COUNT 12.4 10^3/uL (4.0-10.0)
[2024-02-28 06:31] LABS: BLOOD UREA NITROGEN 10 MG/DL (9-23); CALCIUM LEVEL 8.3 MG/DL (8.3-10.6); CARBON DIOXIDE LEVEL 29 MMOL/L (20-31); CHLORIDE LEVEL 108 MMOL/L (98-107); CREATININE FOR GFR 0.67 MG/DL (0.55-1.30); GLOMERULAR FILTRATION RATE > 60.0 (>32); GLUCOSE, FASTING 95 MG/DL (74-106); MAGNESIUM LEVEL 1.8 MG/DL (1.8-2.4); SODIUM LEVEL 142 MMOL/L (136-145)
[2024-02-28 07:33] VITALS: BP 150/75; TEMP 98.6; O2SAT 95
[2024-02-28] MEDS: GASTROGRAFIN SOLUTION 30ML PO SCH (11:12)
[2024-02-28] MEDS: FUROSEMIDE 20 MG TAB PO SCH (11:53)
[2024-02-28 12:00] VITALS: BP 170/85; TEMP 98.5; O2SAT 97
[2024-02-28 17:19] VITALS: BP 136/71; TEMP 96.6; O2SAT 95
[2024-02-28 19:39] VITALS: BP 131/71; TEMP 97.7; O2SAT 94
[2024-02-29 03:38] VITALS: BP 151/70; TEMP 97.7; O2SAT 94
[2024-02-29 06:10] LABS: BASO # 0.1 10^3/uL (0.0-0.2); BASO % 0.5 % (0.0-1.0); EOS # 0.2 10^3/uL (0.0-0.5); EOS % 1.6 % (0.0-3.0); HEMOGLOBIN 9.3 g/dl (12.0-15.5); LYMPH # 2.8 10^3/uL (1.5-5.0); LYMPH % 21.8 % (24.0-44.0); MEAN CORPUSCULAR HEMOGLOBIN 31.1 pg (27.0-33.0); MEAN CORPUSCULAR VOLUME 100.3 fl (80.0-96.0); MONO # 0.9 10^3/uL (0.0-0.8); MONO % 7.2 % (2.0-8.0); NEUTROPHILS # 8.5 10^3/uL (1.5-8.5); NEUTROPHILS % 66.7 % (36.0-66.0); PLATELET COUNT, AUTOMATED 562 10^3/uL (150-450); RED BLOOD COUNT 2.99 10^6/uL (4.00-5.40); WHITE BLOOD COUNT 12.7 10^3/uL (4.0-10.0)
[2024-02-29 06:33] LABS: BLOOD UREA NITROGEN 11 MG/DL (9-23); CALCIUM LEVEL 8.1 MG/DL (8.3-10.6); CARBON DIOXIDE LEVEL 31 MMOL/L (20-31); CHLORIDE LEVEL 107 MMOL/L (98-107); CREATININE FOR GFR 0.76 MG/DL (0.55-1.30); GLOMERULAR FILTRATION RATE > 60.0 (>32); GLUCOSE, FASTING 86 MG/DL (74-106); MAGNESIUM LEVEL 1.8 MG/DL (1.8-2.4); POTASSIUM SERUM 3.6 MMOL/L (3.5-5.1); SODIUM LEVEL 141 MMOL/L (136-145)
[2024-02-29 08:55] LABS: CLOSTRIDIUM DIFFICILE PCR NEGATIVE (NEGATIVE)
[2024-02-29 12:00] VITALS: BP 105/56; TEMP 97.2; O2SAT 96
[2024-02-29] MEDS ORDERED: ISOVUE-300 61% 100ML VIAL As Ordered ONE (15:07)
[2024-02-29] MEDS: PIPERACILLIN/TAZOBACTAM SOD 4.5 GM in D5W MINI-BAG PLUS 50 ML IV SCH (18:50)
[2024-02-29 19:28] VITALS: BP 129/68; TEMP 97.3; O2SAT 94
[2024-03-01 03:57] VITALS: BP 156/78; TEMP 97.3; O2SAT 96
[2024-03-01 06:16] LABS: BASO # 0.1 10^3/uL (0.0-0.2); BASO % 0.6 % (0.0-1.0); EOS # 0.3 10^3/uL (0.0-0.5); EOS % 2.2 % (0.0-3.0); HEMATOCRIT 29.5 % (36.0-47.0); HEMOGLOBIN 8.9 g/dl (12.0-15.5); LYMPH # 2.4 10^3/uL (1.5-5.0); LYMPH % 18.2 % (24.0-44.0); MEAN CORPUSCULAR HEMOGLOBIN 30.8 pg (27.0-33.0); MEAN CORPUSCULAR HGB CONC 30.2 g/dl (32.0-36.5); MEAN CORPUSCULAR VOLUME 102.1 fl (80.0-96.0); MONO # 0.8 10^3/uL (0.0-0.8); NEUTROPHILS # 9.4 10^3/uL (1.5-8.5); NEUTROPHILS % 71.4 % (36.0-66.0); PLATELET COUNT, AUTOMATED 553 10^3/uL (150-450); RED BLOOD COUNT 2.89 10^6/uL (4.00-5.40); WHITE BLOOD COUNT 13.2 10^3/uL (4.0-10.0)
[2024-03-01 06:37] LABS: BLOOD UREA NITROGEN 11 MG/DL (9-23); CALCIUM LEVEL 8.5 MG/DL (8.3-10.6); CARBON DIOXIDE LEVEL 31 MMOL/L (20-31); CHLORIDE LEVEL 109 MMOL/L (98-107); CREATININE FOR GFR 0.83 MG/DL (0.55-1.30); GLOMERULAR FILTRATION RATE > 60.0 (>32); GLUCOSE, FASTING 84 MG/DL (74-106); MAGNESIUM LEVEL 1.8 MG/DL (1.8-2.4); POTASSIUM SERUM 3.9 MMOL/L (3.5-5.1); SODIUM LEVEL 144 MMOL/L (136-145)
[2024-03-01 13:00] VITALS: BP 130/65; TEMP 97.5; O2SAT 92
[2024-03-01] MEDS: FUROSEMIDE 20MG/2ML VIAL IV ONE (15:31)
[2024-03-01 20:02] VITALS: BP 124/62; TEMP 97.5; O2SAT 95
[2024-03-02 04:28] VITALS: BP 144/74; TEMP 97.3; O2SAT 95
[2024-03-02 06:05] LABS: BASO # 0.1 10^3/uL (0.0-0.2); BASO % 0.9 % (0.0-1.0); EOS # 0.4 10^3/uL (0.0-0.5); EOS % 3.5 % (0.0-3.0); HEMATOCRIT 31.3 % (36.0-47.0); HEMOGLOBIN 9.2 g/dl (12.0-15.5); LYMPH # 2.5 10^3/uL (1.5-5.0); LYMPH % 21.6 % (24.0-44.0); MEAN CORPUSCULAR HEMOGLOBIN 30.2 pg (27.0-33.0); MEAN CORPUSCULAR HGB CONC 29.4 g/dl (32.0-36.5); MEAN CORPUSCULAR VOLUME 102.6 fl (80.0-96.0); MONO # 0.9 10^3/uL (0.0-0.8); MONO % 7.8 % (2.0-8.0); NEUTROPHILS # 7.5 10^3/uL (1.5-8.5); NEUTROPHILS % 64.9 % (36.0-66.0); PLATELET COUNT, AUTOMATED 533 10^3/uL (150-450); RED BLOOD COUNT 3.05 10^6/uL (4.00-5.40); WHITE BLOOD COUNT 11.5 10^3/uL (4.0-10.0)
[2024-03-02 06:32] LABS: BLOOD UREA NITROGEN 10 MG/DL (9-23); CALCIUM LEVEL 8.1 MG/DL (8.3-10.6); CARBON DIOXIDE LEVEL 30 MMOL/L (20-31); CHLORIDE LEVEL 106 MMOL/L (98-107); CREATININE FOR GFR 0.91 MG/DL (0.55-1.30); GLOMERULAR FILTRATION RATE > 60.0 (>32); GLUCOSE, FASTING 89 MG/DL (74-106); MAGNESIUM LEVEL 1.6 MG/DL (1.8-2.4); POTASSIUM SERUM 3.4 MMOL/L (3.5-5.1); SODIUM LEVEL 143 MMOL/L (136-145)
[2024-03-02] MEDS: POTASSIUM CHLORIDE 10MEQ SR TABLET PO ONE (07:32)
[2024-03-02 12:00] VITALS: BP 130/70; TEMP 97.3; O2SAT 94
[2024-03-02 20:04] VITALS: BP 129/61; TEMP 97.3; O2SAT 95
[2024-03-03] MEDS ORDERED: HYDROCORTISONE 1% CREAM 30GM TOP PRN (05:45)
[2024-03-03 06:02] LABS: BASO # 0.1 10^3/uL (0.0-0.2); BASO % 0.9 % (0.0-1.0); EOS # 0.3 10^3/uL (0.0-0.5); EOS % 2.7 % (0.0-3.0); HEMATOCRIT 31.2 % (36.0-47.0); HEMOGLOBIN 9.4 g/dl (12.0-15.5); LYMPH # 2.7 10^3/uL (1.5-5.0); LYMPH % 22.3 % (24.0-44.0); MEAN CORPUSCULAR HEMOGLOBIN 30.6 pg (27.0-33.0); MEAN CORPUSCULAR HGB CONC 30.1 g/dl (32.0-36.5); MEAN CORPUSCULAR VOLUME 101.6 fl (80.0-96.0); MONO # 0.9 10^3/uL (0.0-0.8); NEUTROPHILS # 8.1 10^3/uL (1.5-8.5); NEUTROPHILS % 66.3 % (36.0-66.0); PLATELET COUNT, AUTOMATED 533 10^3/uL (150-450); RED BLOOD COUNT 3.07 10^6/uL (4.00-5.40); WHITE BLOOD COUNT 12.2 10^3/uL (4.0-10.0)
[2024-03-03 06:23] LABS: BLOOD UREA NITROGEN 10 MG/DL (9-23); CALCIUM LEVEL 8.2 MG/DL (8.3-10.6); CARBON DIOXIDE LEVEL 30 MMOL/L (20-31); CHLORIDE LEVEL 108 MMOL/L (98-107); CREATININE FOR GFR 0.87 MG/DL (0.55-1.30); GLOMERULAR FILTRATION RATE > 60.0 (>32); GLUCOSE, FASTING 83 MG/DL (74-106); MAGNESIUM LEVEL 1.5 MG/DL (1.8-2.4); POTASSIUM SERUM 4.2 MMOL/L (3.5-5.1); SODIUM LEVEL 143 MMOL/L (136-145)
[2024-03-03 12:00] VITALS: BP 127/66; TEMP 97.3; O2SAT 97
[2024-03-03 20:00] VITALS: BP 116/66; TEMP 97.2; O2SAT 96
[2024-03-04 04:00] VITALS: BP 140/86; TEMP 97.2; O2SAT 97
[2024-03-04 05:31] LABS: BASO # 0.1 10^3/uL (0.0-0.2); BASO % 1.2 % (0.0-1.0); EOS # 0.3 10^3/uL (0.0-0.5); EOS % 3.4 % (0.0-3.0); HEMOGLOBIN 9.8 g/dl (12.0-15.5); LYMPH # 2.4 10^3/uL (1.5-5.0); LYMPH % 27.4 % (24.0-44.0); MEAN CORPUSCULAR HEMOGLOBIN 30.2 pg (27.0-33.0); MEAN CORPUSCULAR HGB CONC 29.7 g/dl (32.0-36.5); MEAN CORPUSCULAR VOLUME 101.5 fl (80.0-96.0); MONO # 0.8 10^3/uL (0.0-0.8); MONO % 8.8 % (2.0-8.0); NEUTROPHILS # 5.1 10^3/uL (1.5-8.5); NEUTROPHILS % 58.5 % (36.0-66.0); PLATELET COUNT, AUTOMATED 520 10^3/uL (150-450); RED BLOOD COUNT 3.25 10^6/uL (4.00-5.40); WHITE BLOOD COUNT 8.7 10^3/uL (4.0-10.0)
[2024-03-04 05:57] LABS: C REACTIVE PROTEIN QUANTITATIV 2.1 MG/DL (<1.0)
[2024-03-04 05:58] LABS: CALCIUM LEVEL 8.3 MG/DL (8.3-10.6); CREATININE FOR GFR 0.96 MG/DL (0.55-1.30); GLOMERULAR FILTRATION RATE 58.4 (>32); MAGNESIUM LEVEL 1.7 MG/DL (1.8-2.4); POTASSIUM SERUM 3.9 MMOL/L (3.5-5.1)
[2024-03-04] MEDS: MAG SULF 1GM/100ML (MAG RUN) 1 GM in IV 1 EA IV ONE (08:05)
[2024-03-04 12:03] VITALS: BP 130/65; TEMP 97.3; O2SAT 97
[2024-03-04 20:00] VITALS: BP 130/84; TEMP 97; O2SAT 95
[2024-03-05 04:00] VITALS: BP 142/74; TEMP 97.3; O2SAT 94
[2024-03-05 06:08] LABS: BASO # 0.1 10^3/uL (0.0-0.2); EOS # 0.3 10^3/uL (0.0-0.5); HEMATOCRIT 31.2 % (36.0-47.0); HEMOGLOBIN 9.4 g/dl (12.0-15.5); LYMPH # 2.7 10^3/uL (1.5-5.0); LYMPH % 30.3 % (24.0-44.0); MEAN CORPUSCULAR HEMOGLOBIN 30.8 pg (27.0-33.0); MEAN CORPUSCULAR HGB CONC 30.1 g/dl (32.0-36.5); MEAN CORPUSCULAR VOLUME 102.3 fl (80.0-96.0); MONO # 0.9 10^3/uL (0.0-0.8); MONO % 9.8 % (2.0-8.0); NEUTROPHILS # 4.9 10^3/uL (1.5-8.5); NEUTROPHILS % 55.3 % (36.0-66.0); PLATELET COUNT, AUTOMATED 484 10^3/uL (150-450); RED BLOOD COUNT 3.05 10^6/uL (4.00-5.40); WHITE BLOOD COUNT 8.9 10^3/uL (4.0-10.0)
[2024-03-05 06:33] LABS: C REACTIVE PROTEIN QUANTITATIV 2.2 MG/DL (<1.0)
[2024-03-05 06:34] LABS: CALCIUM LEVEL 8.8 MG/DL (8.3-10.6); CREATININE FOR GFR 0.96 MG/DL (0.55-1.30); GLOMERULAR FILTRATION RATE 58.4 (>32); MAGNESIUM LEVEL 1.8 MG/DL (1.8-2.4); POTASSIUM SERUM 3.8 MMOL/L (3.5-5.1)
[2024-03-05 08:00] VITALS: BP 125/73
[2024-03-05] MEDS ORDERED: FLUC100T3 PO (10:58)
[2024-03-05] MEDS ORDERED: AMOX875T2 PO (10:58)
[2024-03-05 11:15] VITALS: BP 121/72; TEMP 97.7; O2SAT 96
== END 2024-03-05 13:29 | DRG 871 ==
LOC: M ED 16:07 → M ED INP 20:07 → M MS5PR 23:22 → M ICU 02-19 13:02 → M PCU 02-23 15:03 → M MSPAV 02-28 17:08
PROVIDERS: ADMIT Family Medicine; ATTEND Internal Medicine
PROC: 0W9G30Z Drainage of Peritoneal Cavity with Drainage Device, Percutaneous Approach (ICD-10-PCS; principal; 2024-02-20 12:00)
PROC: 0W9G30Z Drainage of Peritoneal Cavity with Drainage Device, Percutaneous Approach (ICD-10-PCS; 2024-02-29)
DX: A41.9 Sepsis, unspecified organism (principal); K65.1 Peritoneal abscess; L03.319 Cellulitis of trunk, unspecified; E46 Unspecified protein-calorie malnutrition; L02.211 Cutaneous abscess of abdominal wall; K31.6 Fistula of stomach and duodenum; K57.20 Diverticulitis of large intestine with perforation and abscess without bleeding; E87.20 Acidosis, unspecified; I10 Essential (primary) hypertension; E03.9 Hypothyroidism, unspecified; K21.9 Gastro-esophageal reflux disease without esophagitis; E11.40 Type 2 diabetes mellitus with diabetic neuropathy, unspecified; D50.9 Iron deficiency anemia, unspecified; E83.42 Hypomagnesemia; J98.2 Interstitial emphysema; M35.3 Polymyalgia rheumatica; Z86.16 Personal history of COVID-19; Z79.82 Long term (current) use of aspirin; Z79.899 Other long term (current) drug therapy; Z88.5 Allergy status to narcotic agent; Z98.41 Cataract extraction status, right eye; Z98.42 Cataract extraction status, left eye; Z66 Do not resuscitate

== ENCOUNTER → 2024-02-18 | Outpatient (REF) | LOC: SKLAB2 13:30 | PROVIDERS: ATTEND Nurse Practitioner Family | DX: D72.829 Elevated white blood cell count, unspecified (principal); T79.7XXA Traumatic subcutaneous emphysema, initial encounter ==

== ENCOUNTER → 2024-02-18 | Outpatient (REF) ==
[2024-02-18 11:48] LABS: BASO % 0.2 % (0.0-1.0); HEMATOCRIT 27.8 % (36.0-47.0); HEMOGLOBIN 8.6 g/dl (12.0-15.5); LYMPH % 4.3 % (24.0-44.0); MEAN CORPUSCULAR HEMOGLOBIN 32.2 pg (27.0-33.0); MEAN CORPUSCULAR HGB CONC 30.9 g/dl (32.0-36.5); MEAN CORPUSCULAR VOLUME 104.1 fl (80.0-96.0); MONO # 1.3 10^3/uL (0.0-0.8); MONO % 5.5 % (2.0-8.0); NEUTROPHILS # 20.2 10^3/uL (1.5-8.5); NEUTROPHILS % 89.1 % (36.0-66.0); PLATELET COUNT, AUTOMATED 666 10^3/uL (150-450); RED BLOOD COUNT 2.67 10^6/uL (4.00-5.40); WHITE BLOOD COUNT 22.7 10^3/uL (4.0-10.0)
[2024-02-18 12:13] LABS: ALBUMIN 1.8 G/DL (3.2-5.2); ALKALINE PHOSPHATASE 144 U/L (46-116); ALT/SGPT 16 U/L (7.0-40); AST/SGOT 22 U/L (<34); BILIRUBIN,TOTAL 0.4 MG/DL (0.3-1.2); BLOOD UREA NITROGEN 18 MG/DL (9-23); CALCIUM LEVEL 8.6 MG/DL (8.3-10.6); CARBON DIOXIDE LEVEL 27 MMOL/L (20-31); CHLORIDE LEVEL 106 MMOL/L (98-107); CREATININE FOR GFR 0.92 MG/DL (0.55-1.30); GLOMERULAR FILTRATION RATE > 60.0 (>32); GLUCOSE, FASTING 150 MG/DL (74-106); SODIUM LEVEL 139 MMOL/L (136-145); TOTAL PROTEIN 5.2 G/DL (5.7-8.2)
[2024-02-18 14:38] LABS: IRON (FE) 8 UG/DL (50-170); PERCENT SATURATION 3.8 % (13.2-45.0); TOTAL IRON BINDING CAPACITY 211 UG/DL (250-425)
[2024-02-18 14:46] LABS: FERRITIN 67.9 NG/ML (7.3-270.7)
== END ==
LOC: SKLAB2 09:09
PROVIDERS: ATTEND Nurse Practitioner Family
DX: R53.1 Weakness (principal); R50.9 Fever, unspecified

== ENCOUNTER → 2024-03-06 | Outpatient (REF) ==
[~2024-03-06] MED LIST changes: +ACET325C5 PO; +AMOX875T2 PO; +ESOM1CAP20 PO; +FERR324T21 PO; +FLUC100T3 PO
[2024-03-06 09:39] LABS: BASO # 0.1 10^3/uL (0.0-0.2); EOS # 0.3 10^3/uL (0.0-0.5); EOS % 2.3 % (0.0-3.0); HEMATOCRIT 31.3 % (36.0-47.0); HEMOGLOBIN 9.3 g/dl (12.0-15.5); LYMPH # 2.1 10^3/uL (1.5-5.0); LYMPH % 19.2 % (24.0-44.0); MEAN CORPUSCULAR HEMOGLOBIN 30.8 pg (27.0-33.0); MEAN CORPUSCULAR HGB CONC 29.7 g/dl (32.0-36.5); MEAN CORPUSCULAR VOLUME 103.6 fl (80.0-96.0); MONO # 0.9 10^3/uL (0.0-0.8); MONO % 8.4 % (2.0-8.0); NEUTROPHILS # 7.6 10^3/uL (1.5-8.5); NEUTROPHILS % 68.6 % (36.0-66.0); PLATELET COUNT, AUTOMATED 453 10^3/uL (150-450); RED BLOOD COUNT 3.02 10^6/uL (4.00-5.40); WHITE BLOOD COUNT 11.1 10^3/uL (4.0-10.0)
[2024-03-06 09:50] LABS: ERYTHROCYTE SEDIMENTATION RATE 73 mm/hr (0-30)
[2024-03-06 10:02] LABS: BLOOD UREA NITROGEN 13 MG/DL (9-23); CALCIUM LEVEL 9.1 MG/DL (8.3-10.6); CARBON DIOXIDE LEVEL 26 MMOL/L (20-31); CHLORIDE LEVEL 106 MMOL/L (98-107); CREATININE FOR GFR 0.84 MG/DL (0.55-1.30); GLOMERULAR FILTRATION RATE > 60.0 (>32); GLUCOSE, FASTING 142 MG/DL (74-106); POTASSIUM SERUM 4.1 MMOL/L (3.5-5.1); SODIUM LEVEL 142 MMOL/L (136-145)
== END ==
LOC: SKLAB2 06:39
PROVIDERS: ATTEND Internal Medicine
DX: K65.1 Peritoneal abscess (principal)

== ENCOUNTER 2024-03-11 07:45 | Emergency (ER) | payer MEDICARE ==
[~2024-03-11] VITALS: Ht 162.6 cm; Wt 73.2 kg
[2024-03-11 15:25] VITALS: BP 129/63; TEMP 98.2; O2SAT 95
== END 2024-03-11 15:27 | disposition home or self-care (01) ==
LOC: M ED 07:45 → EDBD 07:45 → M ED 15:27
DX: T85.528A Displacement of other gastrointestinal prosthetic devices, implants and grafts, initial encounter (principal); E11.9 Type 2 diabetes mellitus without complications; I10 Essential (primary) hypertension; K21.9 Gastro-esophageal reflux disease without esophagitis; J44.9 Chronic obstructive pulmonary disease, unspecified; E55.9 Vitamin D deficiency, unspecified; Z88.5 Allergy status to narcotic agent; Z79.82 Long term (current) use of aspirin; Z79.811 Long term (current) use of aromatase inhibitors; Z79.4 Long term (current) use of insulin; Z79.52 Long term (current) use of systemic steroids; Z79.899 Other long term (current) drug therapy

== ENCOUNTER → 2024-03-12 | Outpatient (REF) ==
[2024-03-12 15:06] LABS: BASO % 0.4 % (0.0-1.0); EOS % 0.1 % (0.0-3.0); HEMATOCRIT 32.4 % (36.0-47.0); HEMOGLOBIN 9.8 g/dl (12.0-15.5); LYMPH # 1.1 10^3/uL (1.5-5.0); LYMPH % 11.7 % (24.0-44.0); MEAN CORPUSCULAR HEMOGLOBIN 31.1 pg (27.0-33.0); MEAN CORPUSCULAR HGB CONC 30.2 g/dl (32.0-36.5); MEAN CORPUSCULAR VOLUME 102.9 fl (80.0-96.0); MONO # 0.6 10^3/uL (0.0-0.8); MONO % 5.9 % (2.0-8.0); NEUTROPHILS # 7.8 10^3/uL (1.5-8.5); NEUTROPHILS % 81.4 % (36.0-66.0); PLATELET COUNT, AUTOMATED 358 10^3/uL (150-450); RED BLOOD COUNT 3.15 10^6/uL (4.00-5.40); WHITE BLOOD COUNT 9.5 10^3/uL (4.0-10.0)
[2024-03-12 15:12] LABS: ERYTHROCYTE SEDIMENTATION RATE 60 mm/hr (0-30)
[2024-03-12 15:24] LABS: BLOOD UREA NITROGEN 19 MG/DL (9-23); CALCIUM LEVEL 9.4 MG/DL (8.3-10.6); CARBON DIOXIDE LEVEL 27 MMOL/L (20-31); CHLORIDE LEVEL 106 MMOL/L (98-107); CREATININE FOR GFR 0.75 MG/DL (0.55-1.30); GLOMERULAR FILTRATION RATE > 60.0 (>32); GLUCOSE, FASTING 173 MG/DL (74-106); POTASSIUM SERUM 4.5 MMOL/L (3.5-5.1); SODIUM LEVEL 142 MMOL/L (136-145)
== END ==
LOC: SKLAB2 07:00
PROVIDERS: ATTEND Internal Medicine
DX: K65.1 Peritoneal abscess (principal)

== ENCOUNTER → 2024-03-12 | Outpatient (CLI) | payer MEDICARE ==
[~2024-03-12] MED LIST changes: +ISOVUE-300 61% 100ML VIAL As Ordered ONE; +LIDOCAINE 1% MDV 20ML VIAL As Ordered ONE
[2024-03-12 08:30] VITALS: TEMP 97.8
[2024-03-12 11:47] VITALS: BP 146/82; O2SAT 95
== END ==
LOC: M IRPRO 08:19
PROVIDERS: ATTEND Radiology Diagnostic Radiology
DX: K63.2 Fistula of intestine (principal)
CPT/HCPCS: 49423; C1729; C1887; Q9967

== ENCOUNTER → 2024-03-26 | Outpatient (REF) ==
[~2024-03-26] MED LIST changes: -ISOVUE-300 61% 100ML VIAL As Ordered ONE; -LIDOCAINE 1% MDV 20ML VIAL As Ordered ONE
[2024-03-26 08:29] LABS: BASO % 0.3 % (0.0-1.0); EOS # 0.2 10^3/uL (0.0-0.5); EOS % 2.1 % (0.0-3.0); HEMATOCRIT 35.3 % (36.0-47.0); HEMOGLOBIN 10.7 g/dl (12.0-15.5); LYMPH # 2.7 10^3/uL (1.5-5.0); MEAN CORPUSCULAR HEMOGLOBIN 30.7 pg (27.0-33.0); MEAN CORPUSCULAR HGB CONC 30.3 g/dl (32.0-36.5); MEAN CORPUSCULAR VOLUME 101.1 fl (80.0-96.0); MONO # 0.8 10^3/uL (0.0-0.8); MONO % 6.7 % (2.0-8.0); NEUTROPHILS # 7.9 10^3/uL (1.5-8.5); NEUTROPHILS % 67.5 % (36.0-66.0); PLATELET COUNT, AUTOMATED 414 10^3/uL (150-450); RED BLOOD COUNT 3.49 10^6/uL (4.00-5.40); WHITE BLOOD COUNT 11.6 10^3/uL (4.0-10.0)
[2024-03-26 08:54] LABS: ERYTHROCYTE SEDIMENTATION RATE 78 mm/hr (0-30)
[2024-03-26 08:58] LABS: ALBUMIN 2.8 G/DL (3.2-5.2); ALKALINE PHOSPHATASE 125 U/L (46-116); ALT/SGPT 24 U/L (7.0-40); AST/SGOT 21 U/L (<34); BILIRUBIN,TOTAL 0.4 MG/DL (0.3-1.2); BLOOD UREA NITROGEN 28 MG/DL (9-23); CALCIUM LEVEL 9.4 MG/DL (8.3-10.6); CARBON DIOXIDE LEVEL 25 MMOL/L (20-31); CHLORIDE LEVEL 108 MMOL/L (98-107); GLOMERULAR FILTRATION RATE > 60.0 (>32); GLUCOSE, FASTING 104 MG/DL (74-106); POTASSIUM SERUM 4.4 MMOL/L (3.5-5.1); SODIUM LEVEL 142 MMOL/L (136-145); TOTAL PROTEIN 6.3 G/DL (5.7-8.2)
== END ==
LOC: SKLAB2 07:13
PROVIDERS: ATTEND Internal Medicine
DX: K65.1 Peritoneal abscess (principal)

== ENCOUNTER → 2024-03-26 | Outpatient (REF) | payer MEDICARE ==
[2024-03-26 13:28] VITALS: TEMP 98.3
[2024-03-26 14:50] VITALS: BP 128/63; O2SAT 94
== END ==
LOC: SKLAB2 13:08 → M IRPRO 13:08 → EDSTATUS 14:00
PROVIDERS: ATTEND Radiology Diagnostic Radiology
DX: K63.2 Fistula of intestine (principal)

== ENCOUNTER → 2024-03-29 | Outpatient (REF) ==
[~2024-03-29] MED LIST changes: -LIDO1CRE2 TOP; +LIDO4CRE12 TOP
[2024-03-29 06:54] LABS: BASO % 0.3 % (0.0-1.0); EOS # 0.3 10^3/uL (0.0-0.5); EOS % 3.4 % (0.0-3.0); HEMATOCRIT 31.7 % (36.0-47.0); LYMPH # 2.2 10^3/uL (1.5-5.0); LYMPH % 24.3 % (24.0-44.0); MEAN CORPUSCULAR HEMOGLOBIN 31.9 pg (27.0-33.0); MEAN CORPUSCULAR HGB CONC 31.5 g/dl (32.0-36.5); MEAN CORPUSCULAR VOLUME 101.3 fl (80.0-96.0); MONO # 0.8 10^3/uL (0.0-0.8); MONO % 8.7 % (2.0-8.0); NEUTROPHILS # 5.5 10^3/uL (1.5-8.5); NEUTROPHILS % 62.7 % (36.0-66.0); PLATELET COUNT, AUTOMATED 340 10^3/uL (150-450); RED BLOOD COUNT 3.13 10^6/uL (4.00-5.40); WHITE BLOOD COUNT 8.8 10^3/uL (4.0-10.0)
[2024-03-29 07:10] LABS: ERYTHROCYTE SEDIMENTATION RATE 53 mm/hr (0-30)
[2024-03-29 07:24] LABS: BLOOD UREA NITROGEN 30 MG/DL (9-23); CARBON DIOXIDE LEVEL 29 MMOL/L (20-31); CHLORIDE LEVEL 109 MMOL/L (98-107); GLOMERULAR FILTRATION RATE > 60.0 (>32); GLUCOSE, FASTING 99 MG/DL (74-106); SODIUM LEVEL 143 MMOL/L (136-145)
== END ==
LOC: SKLAB2 07:00
PROVIDERS: ATTEND Internal Medicine
DX: K65.1 Peritoneal abscess (principal)

== ENCOUNTER → 2024-04-09 | Outpatient (REF) | payer MEDICARE ==
[~2024-04-09] MED LIST changes: +ISOVUE-300 61% 100ML VIAL As Ordered ONE; +LIDO1CRE2 TOP; -LIDO4CRE12 TOP; +LIDOCAINE 1% MDV 20ML VIAL As Ordered ONE
[2024-04-09 10:30] VITALS: TEMP 98.5
[2024-04-09 13:00] VITALS: BP 144/66; O2SAT 96
== END ==
LOC: M IRPRO 09:52 → EDSTATUS 11:00
PROVIDERS: ATTEND Radiology Diagnostic Radiology
DX: K63.2 Fistula of intestine (principal)

== ENCOUNTER → 2024-04-19 | Outpatient (REF) | payer MEDICARE ==
[~2024-04-19] MED LIST changes: -ISOVUE-300 61% 100ML VIAL As Ordered ONE; -LIDO1CRE2 TOP; +LIDO4CRE12 TOP; -LIDOCAINE 1% MDV 20ML VIAL As Ordered ONE
[2024-04-19 15:02] LABS: C REACTIVE PROTEIN QUANTITATIV 1.2 MG/DL (<1.0)
[2024-04-19 15:04] LABS: PERCENT SATURATION 16.8 % (13.2-45.0)
[2024-04-19 15:07] LABS: FERRITIN 40.3 NG/ML (7.3-270.7)
== END ==
LOC: M LAB REF 12:38
PROVIDERS: ATTEND Internal Medicine
DX: M25.1 Fistula of joint (principal); D64.89 Other specified anemias

== ENCOUNTER → 2024-04-24 | Outpatient (CLI) | payer MEDICARE ==
[~2024-04-24] MED LIST changes: +ISOVUE-300 61% 100ML VIAL As Ordered ONE; +LIDOCAINE 1% MDV 20ML VIAL As Ordered ONE
[2024-04-24 12:05] VITALS: BP 122/75; TEMP 98.8; O2SAT 98
== END ==
LOC: M IRPRO 11:56
PROVIDERS: ATTEND Radiology Diagnostic Radiology
DX: K63.2 Fistula of intestine (principal)
CPT/HCPCS: 49424; Q9967

== ENCOUNTER → 2024-05-08 | Outpatient (CLI) | payer MEDICARE ==
[2024-05-08 10:12] VITALS: BP 142/75; TEMP 99.4; O2SAT 94
== END ==
LOC: M IRPRO 10:00
PROVIDERS: ATTEND Radiology Diagnostic Radiology
DX: K63.2 Fistula of intestine (principal)

== ENCOUNTER → 2024-05-14 | Outpatient (REF) | payer MEDICARE ==
[~2024-05-14] MED LIST changes: -ISOVUE-300 61% 100ML VIAL As Ordered ONE; -LIDOCAINE 1% MDV 20ML VIAL As Ordered ONE
[2024-05-14 18:49] LABS: PERCENT SATURATION 6.3 % (13.2-45.0)
[2024-05-14 18:50] LABS: FERRITIN 19.5 NG/ML (7.3-270.7)
== END ==
LOC: M LAB REF 17:24
PROVIDERS: ATTEND Internal Medicine
DX: D64.89 Other specified anemias (principal)

== ENCOUNTER → 2024-05-23 | Outpatient (CLI) | payer MEDICARE ==
[~2024-05-23] MED LIST changes: +ISOVUE-300 61% 100ML VIAL As Ordered ONE; +LIDOCAINE 1% MDV 20ML VIAL As Ordered ONE
[2024-05-23 09:15] VITALS: TEMP 98
[2024-05-23 10:43] VITALS: BP 137/66; O2SAT 97
== END ==
LOC: M IRPRO 09:00
PROVIDERS: ATTEND Radiology Diagnostic Radiology
DX: K63.2 Fistula of intestine (principal)
CPT/HCPCS: 49423; C1729; Q9967

== ENCOUNTER → 2024-06-06 | Outpatient (CLI) | payer MEDICARE ==
[2024-06-06 09:45] VITALS: TEMP 98.8
[2024-06-06 12:15] VITALS: BP 167/98; O2SAT 98
== END ==
LOC: M IRPRO 09:36
PROVIDERS: ATTEND Radiology Diagnostic Radiology
DX: K63.2 Fistula of intestine (principal)
CPT/HCPCS: 49423; C1729; C1887; Q9967

== ENCOUNTER → 2024-07-09 | Outpatient (CLI) | payer MEDICARE ==
[~2024-07-09] MED LIST changes: +THROMBIN 5,000 UNITS VIAL As Ordered ONE
[2024-07-09 12:15] VITALS: TEMP 99.1
[2024-07-09 14:15] VITALS: BP 169/77; O2SAT 98
== END ==
LOC: M IRPRO 11:59
PROVIDERS: ATTEND Radiology Diagnostic Radiology
DX: K63.2 Fistula of intestine (principal)
CPT/HCPCS: 49423; C1729; Q9967

== ENCOUNTER → 2024-07-29 | Outpatient (CLI) | payer MEDICARE ==
[~2024-07-29] MED LIST changes: -THROMBIN 5,000 UNITS VIAL As Ordered ONE
[2024-07-29 12:00] VITALS: TEMP 99.3
[2024-07-29 13:30] VITALS: BP 156/71; O2SAT 100
== END ==
LOC: M IRPRO 11:39
PROVIDERS: ATTEND Radiology Diagnostic Radiology
DX: K63.2 Fistula of intestine (principal)
CPT/HCPCS: 49423; C1729; Q9967

== ENCOUNTER → 2024-08-26 | Outpatient (CLI) | payer MEDICARE ==
[~2024-08-26] MED LIST changes: -ISOVUE-300 61% 100ML VIAL As Ordered ONE; +ISOVUE-300 61% 100ML VIAL IV STA; -LIDOCAINE 1% MDV 20ML VIAL As Ordered ONE; +LIDOCAINE 1% MDV 20ML VIAL SC STA; +SILVER NITRATE APPLICATOR (1 = QTY 10) As Ordered ONE
[2024-08-26 12:43] VITALS: TEMP 98.6
[2024-08-26 13:30] VITALS: BP 135/70; O2SAT 94
== END ==
LOC: M IRPRO 12:15
PROVIDERS: ATTEND Radiology Diagnostic Radiology
DX: K63.2 Fistula of intestine (principal)
CPT/HCPCS: 49423; C1729

== ENCOUNTER → 2024-10-03 | Outpatient (CLI) | payer MEDICARE ==
[~2024-10-03] MED LIST changes: -ISOVUE-300 61% 100ML VIAL IV STA; +ISOVUE-370 76% 100ML VIAL As Ordered ONE; -LIDOCAINE 1% MDV 20ML VIAL SC STA; -SILVER NITRATE APPLICATOR (1 = QTY 10) As Ordered ONE
[2024-10-03 08:06] VITALS: TEMP 98.8
[2024-10-03] MEDS: ISOVUE-300 61% 100ML VIAL IV SCH (09:38)
[2024-10-03] MEDS: LIDOCAINE 1% MDV 20ML VIAL SC SCH (09:39)
[2024-10-03 09:47] VITALS: BP 111/57; O2SAT 100
== END ==
LOC: M IRPRO 08:00
PROVIDERS: ATTEND Radiology Diagnostic Radiology
DX: K63.2 Fistula of intestine (principal)
CPT/HCPCS: 49423; 74177; 75984; C1729; C1769; Q9967

== ENCOUNTER → 2024-10-09 | Outpatient (CLI) | payer MEDICARE ==
[~2024-10-09] MED LIST changes: -ISOVUE-370 76% 100ML VIAL As Ordered ONE; +SODIUM CHLORIDE 0.9% 1000 ML XX SCH
[2024-10-09 12:05] VITALS: TEMP 99
[2024-10-09] MEDS: ISOVUE-300 61% 100ML VIAL IV SCH (13:20)
[2024-10-09] MEDS: LIDOCAINE 1% MDV 20ML VIAL SC SCH (13:21)
[2024-10-09 13:30] VITALS: BP 122/61; O2SAT 96
== END ==
LOC: M IRPRO 11:51
PROVIDERS: ATTEND Radiology Diagnostic Radiology
DX: K63.2 Fistula of intestine (principal)
CPT/HCPCS: 49423; 75984; C1729; Q9967

== ENCOUNTER → 2024-10-16 | Outpatient (CLI) | payer MEDICARE ==
[~2024-10-16] MED LIST changes: -SODIUM CHLORIDE 0.9% 1000 ML XX SCH
[2024-10-16 14:49] LABS: PERCENT SATURATION 15.2 % (13.2-45.0)
[2024-10-16 14:52] LABS: FERRITIN 45.5 NG/ML (7.3-270.7)
== END ==
LOC: M WUC 12:07
PROVIDERS: ATTEND Internal Medicine
DX: D50.9 Iron deficiency anemia, unspecified (principal); I50.9 Heart failure, unspecified; R06.02 Shortness of breath; K44.9 Diaphragmatic hernia without obstruction or gangrene

== ENCOUNTER → 2024-10-22 | Outpatient (CLI) | payer MEDICARE ==
[~2024-10-22] MED LIST changes: +D-10TAB3 PO; +FOLI1TAB11 PO; +FURO40TA2 PO; +PANT40TA29 PO; +SODIUM CHLORIDE 0.9% 1000 ML XX SCH; +SPIR-10 PO
[2024-10-22 08:30] VITALS: TEMP 99.3
[2024-10-22] MEDS: LIDOCAINE 1% MDV 20ML VIAL SC SCH (10:11)
[2024-10-22] MEDS: ISOVUE-300 61% 100ML VIAL IV SCH (10:12)
[2024-10-22 10:20] VITALS: BP 127/74; O2SAT 100
== END ==
LOC: M IRPRO 08:19
PROVIDERS: ATTEND Radiology Diagnostic Radiology
DX: K63.2 Fistula of intestine (principal)
CPT/HCPCS: 49423; 75984; C1729; Q9967

== ENCOUNTER → 2025-01-06 | Outpatient (REF) ==
[~2025-01-06] MED LIST changes: +DOCU8.6T PO; -SODIUM CHLORIDE 0.9% 1000 ML XX SCH
== END ==
LOC: SKLAB2 09:22
PROVIDERS: ATTEND Internal Medicine
DX: R00.8 Other abnormalities of heart beat (principal)

== ENCOUNTER → 2025-01-10 | Outpatient (REF) ==
[2025-01-10 10:29] LABS: BASO # 0.1 10^3/uL (0.0-0.2); BASO % 0.5 % (0.0-1.0); EOS # 0.4 10^3/uL (0.0-0.5); EOS % 2.4 % (0.0-3.0); LYMPH # 4.6 10^3/uL (1.5-5.0); LYMPH % 30.8 % (24.0-44.0); MONO # 1.1 10^3/uL (0.0-0.8); MONO % 7.5 % (2.0-8.0); NEUTROPHILS # 8.7 10^3/uL (1.5-8.5); NEUTROPHILS % 58.3 % (36.0-66.0); PLATELET COUNT, AUTOMATED 482 10^3/uL (150-450)
[2025-01-10 10:58] LABS: CALCIUM LEVEL 9.2 MG/DL (8.3-10.6); CARBON DIOXIDE LEVEL 30.0 MMOL/L (20-31); CHLORIDE LEVEL 98.0 MMOL/L (98-107); CREATININE FOR GFR 1.14 MG/DL (0.55-1.30); GLOMERULAR FILTRATION RATE 46.0 (>32); POTASSIUM SERUM 4.4 MMOL/L (3.5-5.1); SODIUM LEVEL 141.0 MMOL/L (136-145)
== END ==
LOC: SKLAB2 09:10
PROVIDERS: ATTEND Internal Medicine
DX: K63.2 Fistula of intestine (principal)

== ENCOUNTER → 2025-01-17 | Outpatient (REF) ==
[2025-01-17 15:13] LABS: ESTIMATED AVERAGE GLUCOSE 120.0 MG/DL (60-110)
== END ==
LOC: SKLAB2 13:42
PROVIDERS: ATTEND Internal Medicine
DX: E11.9 Type 2 diabetes mellitus without complications (principal)

== ENCOUNTER → 2025-02-19 | Outpatient (REF) | payer MEDICARE ==
[~2025-02-19] MED LIST changes: -FOLI0.8T3 PO; +FOLI800T5 PO
[2025-02-19 15:52] LABS: C REACTIVE PROTEIN QUANTITATIV < 0.50 MG/DL (<1.0)
[2025-02-19 16:09] LABS: CA19-9 TUMOR MARKER,CARBOHYDRA 8.2 U/ML (<35.0)
== END ==
LOC: M LAB REF 14:13
PROVIDERS: ATTEND Internal Medicine
DX: M35.3 Polymyalgia rheumatica (principal); R94.5 Abnormal results of liver function studies